=== PATIENT | male | born 1955 | race Caucasian/White ===

== ENCOUNTER 2017-12-24 18:24 | Emergency (ER) | payer OTHER ==
[~2017-12-24] VITALS: Ht 175.3 cm; Wt 102.5 kg
[2017-12-24 18:24] VITALS: BP 184/90; PULSE 67; RESP 16; TEMP 98.8; O2SAT 96
[~2017-12-24 18:24] MED LIST: EXEN10PE SQ; FENO50TA PO; FURO8SOL PO; GLUCTAB OR; LACT PO; LEVA500T33 PO; LORT5TAB PO; PRAV40TA PO
--- NOTE | 2017-12-24 19:20 | RADRPT ---
EXAM DATE/TIME: 12/24/2017 18:57 [facility] COMPARISON: CT BRAIN W/O CONTRAST, June 01, 2011, 16:24. INDICATIONS : Head pain due to fall off ladder. RADIATION DOSE: 44.30 CTDIvol (mGy) MEDICAL HISTORY : Hypertension. Diabetes mellitus type 2. SURGICAL HISTORY : None. ENCOUNTER: Initial ACUITY: 1 day PAIN SCALE: 10/10 LOCATION: Bilateral cranial TECHNIQUE: Multiple contiguous axial images were obtained of the head. Using automated exposure control and adj ustment of the mA and/or kV according to patient size, radiation dose was kept as low as reasonably a chievable to obtain optimal diagnostic quality images. DICOM format image data is available electro nically for review and comparison. FINDINGS: CEREBRUM: The ventricles are normal for age. No evidence of midline shift, mass lesion, hemorrhage or acute in farction. No extra-axial fluid collections are seen. POSTERIOR FOSSA: The cerebellum and brainstem are intact. The 4th ventricle is midline. The cerebellopontine angle i s unremarkable. EXTRACRANIAL: The visualized portion of the orbits is intact. SKULL: The calvaria is intact. No evidence of skull fracture. CONCLUSION: Normal examination for a patient of this age. No significant change from 2010. Klever Crouch MD on December 24, 2017 at 19:17 Board Certified Radiologist. This report was verified electronically.
--- NOTE | 2017-12-24 19:24 | RADRPT ---
EXAM DATE/TIME: 12/24/2017 18:57 [facility] COMPARISON: No previous studies available for comparison. INDICATIONS : Neck pain due to fall off ladder. RADIATION DOSE: 21.60 CTDIvol (mGy) MEDICAL HISTORY : Hypertension. Diabetes mellitus type 2. SURGICAL HISTORY : None. ENCOUNTER: Initial ACUITY: 1 day PAIN SCALE: 10/10 LOCATION: Bilateral neck region. TECHNIQUE: Volumetric scanning of the cervical spine was performed. Multiplanar reconstructions in the sagittal, coronal and oblique axial planes were performed. Using automated exposure control and adjustment o f the mA and/or kV according to patient size, radiation dose was kept as low as reasonably achievable to obtain optimal diagnostic quality images. DICOM format image data is available electronically f or review and comparison. FINDINGS: VERTEBRAE: Normal vertebral body height. There are primary degenerative changes throughout the cervical spine. T here is disc space narrowing at C5-6 and C6-7. No acute bony fractures are demonstrated. ALIGNMENT: No evidence of subluxation. C2-C3: The bony spinal canal is normal in size. No evidence of disc bulge or herniation. The neural forami na are bilaterally patent. C3-C4: The bony spinal canal is normal in size. No evidence of disc bulge or herniation. The neural forami na are bilaterally patent. C4-C5: The bony spinal canal is normal in size. No evidence of disc bulge or herniation. The neural forami na are bilaterally patent. C5-C6: There is a left paracentral disc osteophyte complex. Mild narrowing of the left neural foramina. The right neural foramina is patent. C6-C7: Central disc osteophyte complex. There is some narrowing of the neural foramina bilaterally. C7-T1: The bony spinal canal is normal in size. No evidence of disc bulge or herniation. The neural forami na are bilaterally patent. CONCLUSION: 1. No acute bony fracture. 2. Primary degenerative changes with disc degeneration and disc space narrowing especially at C5-6 an d C6-7. 3. Left paracentral disc osteophyte complex at C5-6 4. Central disc osteophyte complex at C6-7 Klever Crouch MD on December 24, 2017 at 19:18 Board Certified Radiologist. This report was verified electronically.
--- NOTE | 2017-12-24 19:58 | RADRPT ---
EXAM DATE/TIME: 12/24/2017 19:36 [facility] COMPARISON: No previous studies available for comparison. INDICATIONS : Chest pain. Patient fell off a ladder. MEDICAL HISTORY : Hypertension. Diabetes mellitus type 2. SURGICAL HISTORY : None. ENCOUNTER: Initial ACUITY: 1 day PAIN SCORE: 2/10 LOCATION: Bilateral chest FINDINGS: PA and lateral views of the chest demonstrate the lungs to be symmetrically aerated without evidence of mass, infiltrate or effusion. The cardiomediastinal contours are unremarkable. Osseous structure s are intact. CONCLUSION: No acute intrathoracic disease. Klever Crouch MD on December 24, 2017 at 19:55 Board Certified Radiologist. This report was verified electronically.
[2017-12-24] MEDS ORDERED: PRAV40TA PO (22:38)
[2017-12-24] MEDS ORDERED: FURO20TA PO (22:38)
[2017-12-24] MEDS ORDERED: METF-382 PO (22:38)
[2017-12-24] MEDS ORDERED: FENO50TA PO (22:38)
[2017-12-24] MEDS ORDERED: LACTCHW3 CHEW (22:38)
[2017-12-24] MEDS ORDERED: BYET10IN2 SQ (22:38)
[2017-12-24 22:39] VITALS: BP 166/72; PULSE 75; RESP 16; TEMP 98.8; O2SAT 96
[2017-12-24] MEDS ORDERED: ACETAMINOPHEN 325 MG TAB PO ONE (22:45)
[2017-12-24] MEDS ORDERED: CYCLOBENZAPRINE HCL 10 MG TAB PO ONE (22:45)
--- NOTE | 2017-12-24 22:55 | PD ---
HPI Chief Complaint: Fall Time Seen by Provider: 22:32 Travel History International Travel<30 days: No Contact w/Intl Traveler<30days: No Traveled to known affect area: No History of Present Illness HPI 62-year-old male here for evaluation of neck pain and head pain after falling off the ladder and striking his head on the ground. The patient reports that he was doing some tree work when a branch struck him, causing him to fall backwards from a height of about 5-6 feet and landing on the ground. He remembers striking the back of his head on the ground, however is unsure if he lost consciousness. He then proceeded to put his ladder backward it belongs, however he does not recall doing this. This incident occurred at around 5:[address] head and cervical spine were ordered in triage as well as [place] collar placed in triage, and the patient was brought back to [place] for evaluation at around 11:30 PM. Patient complains of posterior and left lateral neck discomfort as well as diffuse headache which she rates as 5 out of 10. He has also noted some tingling sensation in all of his distal fingers bilaterally, however he has had this for the last month. He denies upper or lower extremity injuries. No dyspnea. No abdominal pain. PFSH Past Medical History Cardiovascular Problems: Yes (lower extremity edema, on lasix ) High Cholesterol: Yes Diabetes: Yes Patient Takes Glucophage: Yes Diminished Hearing: No Hypertension: Yes Immunizations Current: Yes Sleep Apnea: Yes Triglycerides - High: Yes Tetanus Vaccination: < 5 Years Influenza Vaccination: Yes Past Surgical History Appendectomy: Yes Social History Alcohol Use: No Tobacco Use: No Substance Use: No Allergies-Medications (Allergen,Severity, Reaction): Coded Allergies: No Known Allergies (Verified , 06/15/11) Reported Meds & Prescriptions Reported Meds & Active Scripts Active Reported Pravachol (Pravastatin) 40 Mg Tab 40 Mg PO DAILY Metformin ER (Metformin HCl) 1,000 Mg Meek 1,000 Mg PO DAILY With evening meal [place] Inj (Exenatide) 10 Mcg/0.04 Ml Pfpen 10 Mcg SQ BID Use within 60 minutes before the two main meals of the day. Furosemide 20 Mg Tab 20 Mg PO DAILY Lactinex (Lactobacillus Acidophilus) 1 Chew 1 Tab CHEW DAILY Tricor (Fenofibrate) 145 Mg Tab 145 Mg PO DAILY Takw with food. Review of Systems Except as stated in HPI: all other systems reviewed are Neg Physical Exam Narrative GENERAL: Well-developed, well-nourished, awake, alert, GCS 15, no apparent distress. SKIN: Focused skin assessment warm/dry. Lacerations, abrasions, or ecchymosis. HEAD: Atraumatic. Normocephalic. EYES: Pupils equal, round, 3 mm, reactive to light. EOMI. No scleral icterus. No injection or drainage. ENT: No nasal bleeding or discharge. Mucous membranes pink and moist. NECK: Trachea midline. No JVD. [place] cervical collar in place. Mild midline C-spine and left lateral neck tenderness without step-off or masses. CARDIOVASCULAR: Regular rate and rhythm. RESPIRATORY: No accessory muscle use. Clear to auscultation. Breath sounds equal bilaterally. GASTROINTESTINAL: Abdomen soft, non-tender, nondistended. MUSCULOSKELETAL: No obvious deformities. No clubbing. No cyanosis. No edema. No midline thoracic spine or lumbar spine step-off or tenderness. NEUROLOGICAL: Awake and alert. No obvious cranial nerve deficits. Motor grossly within normal limits. Normal speech. PSYCHIATRIC: Appropriate mood and affect; insight and judgment normal. Data Data Last Documented VS Vital Signs Date Time Temp Pulse Resp B/P (MAP) Pulse Ox O2 Delivery O2 Flow Rate FiO2 12/24/17 22:39 98.8 75 16 166/72 (103) 96 Room Air Orders Orders Ct Brain W/O Iv Contrast(Rout) (12/24/17 ) Ct Cerv Spine W/O Contrast (12/24/17 ) Chest, Pa & Lat (12/24/17 ) Acetaminophen (Tylenol) (12/24/17 22:45) Cyclobenzaprine (Flexeril) (12/24/17 22:45) Ed Discharge Order (12/24/17 22:55) [facility] Medical Decision Making Medical Screen Exam Complete: Yes Emergency Medical Condition: Yes Differential Diagnosis Closed head injury, intracranial trauma, cervical spine injury Narrative Course Vital signs reviewed. CT head: Normal exam for patient of this age. No significant change from 2010. CT cervical spine: CONCLUSION: 1. No acute bony fracture. 2. Primary degenerative changes with disc degeneration and disc space narrowing especially at C5-6 and C6-7. 3. Left paracentral disc osteophyte complex at C5-6 4. Central disc osteophyte complex at C6-7 Chest x-ray: CONCLUSION: No acute intrathoracic disease. The patient and the patient's family were made aware of all findings. There are no focal deficits on exam. Normal muscle strength in all 4 extremities. Patient likely experienced a concussion as well as cervical strain. He will be provided a copy of his CT head and neck reports. I will give him a prescription for Flexeril and he was advised to take Tylenol and ibuprofen for pain. He is stable for discharge home with outpatient follow-up with his primary care physician this week. He was advised on when to return to the emergency department. He verbalizes understanding and agreement with plan. Diagnosis Primary Impression: Closed head injury Qualified Codes: S09.90XA - Unspecified injury of head, initial encounter Additional Impressions: Cervical strain Qualified Codes: S16.1XXA - Strain of muscle, fascia and tendon at neck level , initial encounter Fall from ladder Qualified Codes: W11.XXXA - Fall on and from ladder, initial encounter Referrals: Primary Care Physician 3 days Additional Instructions: Follow-up with your primary care physician this week. Take Tylenol/ibuprofen for pain. Return to the emergency room if worsening symptoms or any other concerns. Scripts Cyclobenzaprine (Flexeril) 10 Mg Tab 10 MG PO TID for Muscle Spasm, #15 TAB 0 Refills Prov: Lazaro Jennings MD 12/24/17 Disposition: 01 DISCHARGE HOME Condition: Stable Lazaro Jennings MD Dec 24, 2017 22:55
[2017-12-24] MEDS ORDERED: CYCL10TA PO (22:56)
== END 2017-12-24 23:18 | disposition home or self-care (01) ==
LOC: NEPD 18:24
DX: S09.90XA Unspecified injury of head, initial encounter (principal); S16.1XXA Strain of muscle, fascia and tendon at neck level, initial encounter; W20.8XXA Other cause of strike by thrown, projected or falling object, initial encounter; W11.XXXA Fall on and from ladder, initial encounter; Y93.H9 Activity, other involving exterior property and land maintenance, building and construction
CPT/HCPCS: 70450; 71046; 72125; 99284

== ENCOUNTER 2018-01-19 15:26 | Inpatient (IN) | payer OTHER ==
[~2018-01-19] VITALS: Ht 175.3 cm; Wt 106.8 kg
[~2018-01-19 15:26] MED LIST changes: +BYET10IN2 SQ; +CYCL10TA PO; -EXEN10PE SQ; +FURO20TA PO; -FURO8SOL PO; -GLUCTAB OR; -LACT PO; +LACTCHW3 CHEW; -LEVA500T33 PO; -LORT5TAB PO; +METF-382 PO
[2018-01-19 15:52] VITALS: BP 137/70; PULSE 106; RESP 24; TEMP 99.2; O2SAT 96
[2018-01-19 18:31] LABS: LACTIC ACID SEPSIS PROTOCOL 2.1 mmol/L (0.4-2.0)
[2018-01-19 18:32] LABS: AUTOMATED NEUTROPHIL # 19.2 TH/MM3 (1.8-7.7); BASOPHIL # 0.1 TH/MM3 (0-0.2); BASOPHIL % 0.5 % (0.0-2.0); EOSINOPHIL % 0.2 % (0.0-4.0); HEMATOCRIT 52.3 % (39.0-51.0); HEMOGLOBIN 17.3 GM/DL (13.0-17.0); LYMPH % 6.5 % (9.0-44.0); LYMPHOCYTE # 1.5 TH/MM3 (1.0-4.8); MEAN CORPUSCULAR HEMOGLOBIN 28.4 PG (27.0-34.0); MEAN PLATELET VOLUME 9.2 FL (7.0-11.0); MONO % 6.8 % (0.0-8.0); MONOCYTE # 1.5 TH/MM3 (0-0.9); PLATELET COUNT 353 TH/MM3 (150-450); RED BLOOD COUNT 6.08 MIL/MM3 (4.50-5.90); RED CELL DISTRIBUTION WIDTH 14.2 % (11.6-17.2); WHITE BLOOD COUNT 22.3 TH/MM3 (4.0-11.0)
[2018-01-19 18:42] LABS: PROTHROMBIN TIME - PATIENT 10.4 SEC (9.8-11.6)
[2018-01-19 18:56] LABS: ALBUMIN 3.2 GM/DL (3.4-5.0); AST (GOT) 17 U/L (15-37); BICARBONATE 18.7 MEQ/L (21.0-32.0); BLOOD UREA NITROGEN 33 MG/DL (7-18); CALCIUM 10.5 MG/DL (8.5-10.1); CHLORIDE 92 MEQ/L (98-107); CREATININE 1.71 MG/DL (0.60-1.30); GLOMERULAR FILTRATION RATE 41 ML/MIN (>89); GLUCOSE,RANDOM 280 MG/DL (74-106); SODIUM (NA) 130 MEQ/L (136-145)
[2018-01-19 18:57] LABS: ALT (GPT) 17 U/L (12-78)
[2018-01-19 19:00] LABS: ALKALINE PHOSPHATASE 101 U/L (45-117); TOTAL BILIRUBIN ADULT 0.5 MG/DL (0.2-1.0); TOTAL PROTEIN 8.4 GM/DL (6.4-8.2)
[2018-01-19 19:07] LABS: BANDS 5 % (0-6); LYMPHOCYTES 13 % (9-44); METAMYELOCYTES 3 % (0-1); MONOCYTES 10 % (0-8); NEUTROPHIL # MANUAL DIFF 17.2 TH/MM3 (1.8-7.7); POLYS (SEG NEUTROPHILS) 69 % (16-70)
[2018-01-19] MEDS ORDERED: LISI-519 PO (19:17)
[2018-01-19] MEDS ORDERED: ALBI1INJ2 SQ (19:17)
[2018-01-19] MEDS ORDERED: BACT800T5 PO (19:17)
[2018-01-19] MEDS ORDERED: OXYC1CAP PO (19:17)
[2018-01-19] MEDS ORDERED: SODIUM CHLOR 0.9% 1000 ML INJ 1,000 ML IV SCH (19:18)
[2018-01-19] MEDS ORDERED: PIPERACIL-TAZO 3.375 GM PREMIX 50 ML IV ONE (19:30)
[2018-01-19] MEDS ORDERED: VANCOMYCIN INJ 1,750 MG in SODIUM CHLORID 0.9% 500 ML INJ 500 ML IV ONE (19:30)
[2018-01-19] MEDS ORDERED: MORPHINE SULFATE 8 MG/ML INJ IV PUSH ONE (19:30)
[2018-01-19] MEDS ORDERED: HYDROmorphone HCL PF 2 MG/ML VIAL IV PUSH ONE (19:45)
[2018-01-19] MEDS ORDERED: SODIUM CHLOR 0.9% 1000 ML INJ 1,000 ML IV ONE (19:45)
[2018-01-19 20:28] VITALS: BP 98/51; PULSE 86; RESP 21; TEMP 99.8; O2SAT 95
--- NOTE | 2018-01-19 20:36 | RADRPT ---
EXAM DATE/TIME: 01/19/2018 19:55 [facility] COMPARISON: CT ABDOMEN & PELVIS W CONTRAST, June 15, 2011, 19:22. INDICATIONS : Perirectal pain following I & D of perirectal abscess. Patient complains of difficulty voiding and p ainful bowel movements. ORAL CONTRAST: No oral contrast ingested. RADIATION DOSE: 17.92 CTDIvol (mGy) MEDICAL HISTORY : Hypertension. Diabetes mellitus type 2. SURGICAL HISTORY : Appendectomy. ENCOUNTER: Initial ACUITY: 1 week PAIN SCALE: 10/10 LOCATION: abdomen/pelvis TECHNIQUE: Volumetric scanning of the abdomen and pelvis was performed. Using automated exposure control and ad justment of the mA and/or kV according to patient size, radiation dose was kept as low as reasonably achievable to obtain optimal diagnostic quality images. DICOM format image data is available electro nically for review and comparison. FINDINGS: LOWER LUNGS: The visualized lower lungs are clear. LIVER: Homogeneous density without lesion. There is no dilation of the biliary tree. No calcified gallston es. SPLEEN: Normal size without lesion. PANCREAS: Within normal limits. KIDNEYS: No calcified stones seen in the collecting system or either ureter. There is mild asymmetric promine nce of the collecting system of both kidneys and mild dilation of both ureters. ADRENAL GLANDS: Within normal limits. VASCULAR: There is no aortic aneurysm. BOWEL/MESENTERY: No dilated loops of small or large bowel. A few small sigmoid diverticula, stable from prior, withou t radiographic evidence of diverticulitis. There is induration of the subcutaneous fat about the rig ht gluteal fold, but no focal fluid collections seen. ABDOMINAL WALL: Within normal limits. RETROPERITONEUM: There is no lymphadenopathy. BLADDER: Mildly distended. No calcifications within the lumen. No wall thickening or mass. REPRODUCTIVE: Induration of the posterior scrotum is similar to prior CT in 2010. INGUINAL: There is no lymphadenopathy or hernia. MUSCULOSKELETAL: Within normal limits for patient age. CONCLUSION: 1. Induration of the subcutaneous soft tissues in the right perianal region without focal fluid colle ction. 2. Both collecting system and ureters are mildly dilated, but no calcified stones seen on either side . 3. Distended urinary bladder, similar to prior CT in 2000. Inder Campuzano MD on January 19, 2018 at 20:29 Board Certified Radiologist. This report was verified electronically.
--- NOTE | 2018-01-19 22:13 | RADRPT ---
EXAM DATE/TIME: 01/19/2018 20:47 [facility] COMPARISON: US TESTICLE W/DOPPLER, June 15, 2011, 18:13. INDICATIONS : Testicular pain. MEDICAL HISTORY : Hypercholesterolemia. Hypertension. Lower extremity edema. Hyperlipidemia. Sleep apnea. Diabetes. SURGICAL HISTORY : Appendectomy. Perirectal abscess I&D. ENCOUNTER: Subsequent ACUITY: 1 week PAIN SCORE: 3/10 LOCATION: Bilateral testicles. MEASUREMENTS: RIGHT TESTICLE: 4.4 x 3.4 x 2.1cm LEFT TESTICLE: 4.2 x 3.2 x 2.0cm FINDINGS: RIGHT TESTICLE: Homogeneous echotexture without intra or extratesticular mass. Blood flow is symmetric and within no rmal limits. No hydrocele or varicocele. Epididymis is within normal limits. LEFT TESTICLE: Homogeneous echotexture without intra or extratesticular mass. Blood flow is symmetric and within no rmal limits. No hydrocele or varicocele. Epididymis is within normal limits. SCROTUM: Focal irregular shaped area of prominent thickening of the posterior scrotal tissue measuring 5.1 x 5 .5 x 5.3 cm. There is inhomogeneous areas of echo texture. No internal flow seen on color Doppler. CONCLUSION: 1. Bilateral testicles have a normal appearance with intact flow by color Doppler. 2. Irregular shaped heterogeneous echotexture abnormality in the posterior scrotum measuring excess o f 5 cm. Inder Campuzano MD on January 19, 2018 at 22:10 Board Certified Radiologist. This report was verified electronically.
--- NOTE | 2018-01-19 22:47 | PD ---
HPI Chief Complaint: Skin Problem Time Seen by Provider: 19:15 Travel History International Travel<30 days: No Contact w/Intl Traveler<30days: No Traveled to known affect area: No History of Present Illness HPI the patient's 49 years old and arrives to the ER with complaint of pain in the perineal distribution and scrotum. He underwent incision and drainage of perirectal abscess by Dr. Youssef several days prior and has been back to the office including today and from there was sent here. Pain is constant. It's worse with palpation. Subjective fever is reported. Keflex was not helpful at home. PFSH Past Medical History Cardiovascular Problems: Yes (lower extremity edema, on lasix ) High Cholesterol: Yes Diabetes: Yes Patient Takes Glucophage: No Diminished Hearing: No Hypertension: Yes Immunizations Current: Yes Sleep Apnea: Yes Triglycerides - High: Yes Past Surgical History Appendectomy: Yes Other Surgery: Yes (01/15/17 PERIRECTAL ABCESS I&D) Social History Alcohol Use: No Tobacco Use: No Substance Use: No Allergies-Medications (Allergen,Severity, Reaction): Coded Allergies: No Known Allergies (Verified Allergy, Unknown, 01/20/18) morphine (Verified Adverse Reaction, Unknown, Hallucinations, 01/20/18) Reported Meds & Prescriptions Reported Meds & Active Scripts Active Reported Oxycodone (Oxycodone HCl) 5 Mg Cap 5 Mg PO Q6H PRN Tanzeum 4-Pack Inj (Albiglutide) 50 Mg Pfpen 50 Mg SQ Q7D Lisinopril 5 Mg Tab 5 Mg PO DAILY Pravachol (Pravastatin) 40 Mg Tab 40 Mg PO DAILY Tricor (Fenofibrate) 145 Mg Tab 145 Mg PO DAILY Takw with food. Review of Systems Except as stated in HPI: all other systems reviewed are Neg General / Constitutional: Positive: Fever Physical Exam Narrative GENERAL: 62-year-old male pleasant well-nourished well-developed mild to moderate distress secondary to pain Vital Signs Date Time Temp Pulse Resp B/P (MAP) Pulse Ox O2 Delivery O2 Flow Rate FiO2 01/19/18 20:28 99.8 86 21 98/51 (67) 95 Nasal Cannula 2.00 01/19/18 15:52 99.2 106 24 137/70 (92) 96 SKIN: Warm and dry. Examination of the perirectal area demonstrates incised abscesses in the left gluteal distribution. The perineal ridge and scrotum is indurated and erythematous and tender. No palpable crepitus. HEAD: Atraumatic. Normocephalic. EYES: Pupils equal and round. No scleral icterus. No injection or drainage. ENT: No nasal bleeding or discharge. Mucous membranes pink and moist. NECK: Trachea midline. No JVD. CARDIOVASCULAR: Regular rhythm. Tachycardia. RESPIRATORY: No accessory muscle use. Clear to auscultation. Breath sounds equal bilaterally. GASTROINTESTINAL: Abdomen soft, non-tender, nondistended. Hepatic and splenic margins not palpable. MUSCULOSKELETAL: Extremities without clubbing, cyanosis, or edema. No obvious deformities. NEUROLOGICAL: Awake and alert. No obvious cranial nerve deficits. Motor grossly within normal limits. Five out of 5 muscle strength in the arms and legs. Normal speech. PSYCHIATRIC: Appropriate mood and affect; insight and judgment normal. Data Data Last Documented VS Vital Signs Date Time Temp Pulse Resp B/P (MAP) Pulse Ox O2 Delivery O2 Flow Rate FiO2 01/19/18 20:28 99.8 86 21 98/51 (67) 95 Nasal Cannula 2.00 VS reviewed Orders Orders Complete Blood Count With Diff (01/19/18 15:55) Comprehensive Metabolic Panel (01/19/18 15:55) Prothrombin Time / Inr (Pt) (01/19/18 15:55) Act Partial Throm Time (Ptt) (01/19/18 15:55) Lactic Acid Sepsis Protocol (01/19/18 15:55) Urinalysis - C+S If Indicated (01/19/18 15:55) Blood Culture (01/19/18 15:55) Iv Access Insert/Monitor (01/19/18 19:18) Ecg Monitoring (01/19/18 19:18) Oximetry (01/19/18 19:18) Sodium Chlor 0.9% 1000 Ml Inj (Ns 1000 M (01/19/18 19:18) Sodium Chloride 0.9% Flush (Ns Flush) (01/19/18 19:30) Morphine Inj (Morphine Inj) (01/19/18 19:30) Ct Abd/Pel W/O Iv Contrast (01/19/18 ) Us Testicles W Doppler (01/19/18 ) Vancomycin Inj (Vancomycin Inj) (01/19/18 19:30) Piperacil-Tazo 3.375 Gm Premix (Zosyn 3. (01/19/18 19:30) Sodium Chlor 0.9% 1000 Ml Inj (Ns 1000 M (01/19/18 19:45) Hydromorphone Pf Inj (Dilaudid Pf Inj) (01/19/18 19:45) Electronics Engineering Manager / Telemetry JOSE.[email or web address] (01/19/18 22:44) Vital Signs (Adult) Q4H (01/19/18 22:44) Activity Bed Rest (01/19/18 22:44) Admit Order (Ed Use Only) (01/19/18 22:46) Labs Laboratory Tests Test 01/19/18 17:40 01/19/18 22:12 White Blood Count 22.3 TH/MM3 Red Blood Count 6.08 MIL/MM3 Hemoglobin 17.3 GM/DL Hematocrit 52.3 % Mean Corpuscular Volume 86.0 FL Mean Corpuscular Hemoglobin 28.4 PG Mean Corpuscular Hemoglobin Concent 33.0 % Red Cell Distribution Width 14.2 % Platelet Count 353 TH/MM3 Mean Platelet Volume 9.2 FL Neutrophils (%) (Auto) 86.0 % Lymphocytes (%) (Auto) 6.5 % Monocytes (%) (Auto) 6.8 % Eosinophils (%) (Auto) 0.2 % Basophils (%) (Auto) 0.5 % Neutrophils # (Auto) 19.2 TH/MM3 Lymphocytes # (Auto) 1.5 TH/MM3 Monocytes # (Auto) 1.5 TH/MM3 Eosinophils # (Auto) 0.0 TH/MM3 Basophils # (Auto) 0.1 TH/MM3 CBC Comment AUTO DIFF Differential Total Cells Counted 100 Neutrophils % (Manual) 69 % Band Neutrophils % 5 % Lymphocytes % 13 % Monocytes % 10 % Neutrophils # (Manual) 17.2 TH/MM3 Metamyelocytes 3 % Differential Comment FINAL DIFF MANUAL Platelet Estimate NORMAL Platelet Morphology Comment ENLARGED Prothrombin Time 10.4 SEC Prothromb Time International Ratio 1.0 RATIO Activated Partial Thromboplast Time 25.4 SEC Blood Urea Nitrogen 33 MG/DL Creatinine 1.71 MG/DL Random Glucose 280 MG/DL Total Protein 8.4 GM/DL Albumin 3.2 GM/DL Calcium Level 10.5 MG/DL Alkaline Phosphatase 101 U/L Aspartate Amino Transf (AST/SGOT) 17 U/L Alanine Aminotransferase (ALT/SGPT) 17 U/L Total Bilirubin 0.5 MG/DL Sodium Level 130 MEQ/L Potassium Level 5.2 MEQ/L Chloride Level 92 MEQ/L Carbon Dioxide Level 18.7 MEQ/L Anion Gap 19 MEQ/L Estimat Glomerular Filtration Rate 41 ML/MIN Lactic Acid Level 2.1 mmol/L 1.2 mmol/L MDM Medical Decision Making Medical Screen Exam Complete: Yes Emergency Medical Condition: Yes Medical Record Reviewed: Yes Differential Diagnosis scrotal abscess, sepsis, perirectal abscess, Federico's gangrene Narrative Course CBC & BMP Diagram 01/19/18 17:40 Total Protein 8.4 H, Albumin 3.2 L, Calcium Level 10.5 H, Alkaline Phosphatase 101, Aspartate Amino Transf (AST/SGOT) 17, Alanine Aminotransferase (ALT/SGPT) 17, Total Bilirubin 0.5 Last Impressions Scrotum Ultrasound 01/19/18 0000 Signed Impressions: Service Date/Time: Friday, January 19, 2018 20:47 - CONCLUSION: 1. Bilateral testicles have a normal appearance with intact flow by color Doppler. 2. Irregular shaped heterogeneous echotexture abnormality in the posterior scrotum measuring excess of 5 cm. Inder Campuzano MD Abdomen/Pelvis CT 01/19/18 0000 Signed Impressions: Service Date/Time: Friday, January 19, 2018 19:55 - CONCLUSION: 1. Induration of the subcutaneous soft tissues in the right perianal region without focal fluid collection. 2. Both collecting system and ureters are mildly dilated, but no calcified stones seen on either side. 3. Distended urinary bladder, similar to prior CT in 2000. Inder Campuzano MD [facility] started. IV fluids initiated. No evidence of gas in the scrotum, perineum or pelvis/buttocks. Patient will require ongoing IV antibiotics. The case was discussed with Dr. Youssef. The case was discussed with Dr. White. there is a mild bump and lactic acid which is most likely to be in keeping with the patient's oral anti-hyperglycemic. Anion gap is considered most likely secondary to same. Critical Care Narrative Aggregate critical care time was 35 minutes. Time to perform other separately billable procedures was not included in the critical care time. My time did not include minutes spent treating any other patients simultaneously or on activities that did not directly contribute to the patient's treatment. The services I provided to this patient were to treat and/or prevent clinically significant deterioration that could result in: Septic shock, cardiopulmonary arrest I provided critical care services requiring my management, as noted below: Chart data review, documentation time, medication orders and management, vital sign assessments/reviewing monitor data, ordering and reviewing lab tests, ordering and interpreting/reviewing x-rays and diagnostic studies, care of the patient and discussion of the patient with the admitting physicians. Diagnosis Primary Impression: Scrotal abscess Additional Impressions: Perirectal abscess DM2 (diabetes mellitus, type 2) Admitting Information Admitting Physician Requests: Admit Carlos Diaz MD Jan 19, 2018 22:47
[2018-01-20] VITALS (8 sets, daily range): BP systolic 101–132; BP diastolic 55–60; PULSE 77–97; RESP 14–20; TEMP 97–99.1; O2SAT 92–98
[2018-01-20] MEDS ORDERED: ONDANSETRON HCL 4 MG/2 ML VIAL IV PUSH PRN
[2018-01-20] MEDS ORDERED: Vancomycin Consult Pharmacy 1 EA OTHER SCH
[2018-01-20] MEDS ORDERED: MORPHINE SULFATE 8 MG/ML INJ IV PUSH PRN
[2018-01-20] MEDS ORDERED: VANCOMYCIN INJ 1,000 MG in SODIUM CHLOR 0.9% 250 ML INJ 250 ML IV ONE ×2
--- NOTE | 2018-01-20 00:16 | HHI.HP ---
HPI Service [facility] Hospitalists Primary Care Physician Rick Funk M.D. Admission Diagnosis Scrotal Abscess; Perirectal Cellulitis; Sepsis Chief Complaint: pain in scrotum, buttock with wound, directed to ER by his gen surgeon Travel History International Travel<30 Days: No Contact w/Intl Traveler <30 Da: No Traveled to Known Affected Are: No Sepsis Criteria SIRS Criteria (2 or more): Heart rate over 90, WBC > 88491, < 4000 or > 10% bands Sepsis Criteria (SIRS+source): Infect source susp/known Criteria Outcome: Meets sepsis criteria History of Present Illness 62 y.o. WM with DM presents to ER under direction of Dr Grubbs re: perirectal abscess and pain/swelling in scrotum. First treated with Keflex abx 01/13/18 re: abscess, then had I&D performed by Dr Grubbs on 01/15/18 and was reportedly placed on Bactrim for last few days. Cltx of abscess revealed group B Strep. He had low grade fevers today and has noted more swelling in scrotum with difficulty having BMs over last 2 days. No vomiting, but +nausea. Was seen in gen surgery office today and directed to ER re: possible progression of abscess with possible scrotal abscess as well. CT abd/pelvis noted for induration in perineal area, but not obvious abscess. U/S scrotum reveal irreg structure appx 5 cm most c/w abscess per ER provider. Testicles appear wnl bilat. Pt placed on IV abx and pain med. Review of Systems Constitutional: COMPLAINS OF: Fever, Chills Endocrine: DENIES: Heat/cold intolerance, Polydipsia, Polyuria, Polyphagia Eyes: DENIES: Blurred vision, Diplopia, Eye inflammation, Eye pain, Vision loss , Photosensitivity, Double Vision Ears, nose, mouth, throat: DENIES: Tinnitus, Hearing loss, Vertigo, Nasal discharge, Oral lesions, Throat pain, Hoarseness, Ear Pain, Running Nose, Epistaxis, Sinus Pain, Toothache, Odynophagia Respiratory: DENIES: Apneas, Cough, Snoring, Wheezing, Hemoptysis, Sputum production, Shortness of breath Cardiovascular: DENIES: Chest pain, Palpitations, Syncope, Dyspnea on Exertion , PND, Lower Extremity Edema, Orthopnea, Claudication Gastrointestinal: COMPLAINS OF: Constipation, DENIES: Abdominal pain, Black stools, Bloody stools, BRB per rectum, Diarrhea, GERD, Nausea, Reflux, Vomiting , Difficulty Swallowing, Anorexia, See HPI Genitourinary: COMPLAINS OF: Testicular Pain, Testicular Swelling Musculoskeletal: COMPLAINS OF: Joint pain Integumentary: DENIES: Abnormal pigmentation, Nail changes, Pruritus, Rash Hematologic/lymphatic: DENIES: Bruising, Lymphadenopathy Immunologic/allergic: DENIES: Eczema, Urticaria Neurologic: COMPLAINS OF: Abnormal gait, DENIES: Headache, Localized weakness, Paresthesias, Seizures, Speech Problems, Tremor, Poor Balance Psychiatric: COMPLAINS OF: Anxiety Other open wound on buttock, swelling in scrotum Past Family Social History Past Medical History DM 2 with nephropathy GERD Obesity HTN Past Surgical History Appendectomy Neck Abscess I&D Reported Medications Oxycodone (Oxycodone HCl) 5 Mg Cap 5 Mg PO Q6H PRN Bactrim DS (Sulfamethoxazole-Trimethoprim) 800-160 Mg Tab 1 Tab PO BID Tanzeum 4-Pack Inj (Albiglutide) 50 Mg Pfpen 50 Mg SQ Q7D Lisinopril 5 Mg Tab 5 Mg PO DAILY Pravachol (Pravastatin) 40 Mg Tab 40 Mg PO DAILY Tricor (Fenofibrate) 145 Mg Tab 145 Mg PO DAILY Takw with food. Allergies: Coded Allergies: No Known Allergies (Verified , 06/15/11) Family History Father- Afib Brother- Afib, DM Mother- stroke Social History No tobacco, No EtOH, No illicits born and raised locally Salesman for [employer] Physical Exam Vital Signs Vital Signs Date Time Temp Pulse Resp B/P (MAP) Pulse Ox O2 Delivery O2 Flow Rate FiO2 01/19/18 23:52 01/19/18 20:28 99.8 86 21 98/51 (67) 95 Nasal Cannula 2.00 01/19/18 15:52 99.2 106 24 137/70 (92) 96 Physical Exam GENERAL: This is a well-nourished, well-developed patient, in no apparent distress. a/o SKIN: right buttock with open wound with mild erythema/induration in gluteal cleft, perineal area and scrotum with edema, induration and ttp HEAD: Atraumatic. Normocephalic. No temporal or scalp tenderness. EYES: Pupils equal round and reactive. Extraocular motions intact. No scleral icterus. No injection or drainage. ENT: Nose without bleeding, purulent drainage or septal hematoma. Airway patent. NECK: Trachea midline. No JVD or lymphadenopathy. Supple, nontender, no meningeal signs. CARDIOVASCULAR: Regular rate and rhythm without murmurs, gallops, or rubs. RESPIRATORY: Clear to auscultation. Breath sounds equal bilaterally. No wheezes , rales, or rhonchi. GASTROINTESTINAL: Abdomen soft, non-tender, nondistended. No hepato-splenomegaly , or palpable masses. No guarding. MUSCULOSKELETAL: Extremities without clubbing, cyanosis, or edema. No joint tenderness, effusion, or edema noted. No calf tenderness. NEUROLOGICAL: Awake and alert. Cranial nerves II through XII intact. Motor and sensory grossly within normal limits. Five out of 5 muscle strength in all muscle groups. Normal speech. : testicles descended bilat with minimal ttp, no obvious testicular mass, but scrotum is full with significant induration dorsally Laboratory Laboratory Tests Test 01/19/18 17:40 01/19/18 22:12 White Blood Count 22.3 Red Blood Count 6.08 Hemoglobin 17.3 Hematocrit 52.3 Mean Corpuscular Volume 86.0 Mean Corpuscular Hemoglobin 28.4 Mean Corpuscular Hemoglobin Concent 33.0 Red Cell Distribution Width 14.2 Platelet Count 353 Mean Platelet Volume 9.2 Neutrophils (%) (Auto) 86.0 Lymphocytes (%) (Auto) 6.5 Monocytes (%) (Auto) 6.8 Eosinophils (%) (Auto) 0.2 Basophils (%) (Auto) 0.5 Neutrophils # (Auto) 19.2 Lymphocytes # (Auto) 1.5 Monocytes # (Auto) 1.5 Eosinophils # (Auto) 0.0 Basophils # (Auto) 0.1 CBC Comment AUTO DIFF Differential Total Cells Counted 100 Neutrophils % (Manual) 69 Band Neutrophils % 5 Lymphocytes % 13 Monocytes % 10 Neutrophils # (Manual) 17.2 Metamyelocytes 3 Differential Comment FINAL DIFF MANUAL Platelet Estimate NORMAL Platelet Morphology Comment ENLARGED Prothrombin Time 10.4 Prothromb Time International Ratio 1.0 Activated Partial Thromboplast Time 25.4 Blood Urea Nitrogen 33 Creatinine 1.71 Random Glucose 280 Total Protein 8.4 Albumin 3.2 Calcium Level 10.5 Alkaline Phosphatase 101 Aspartate Amino Transf (AST/SGOT) 17 Alanine Aminotransferase (ALT/SGPT) 17 Total Bilirubin 0.5 Sodium Level 130 Potassium Level 5.2 Chloride Level 92 Carbon Dioxide Level 18.7 Anion Gap 19 Estimat Glomerular Filtration Rate 41 Lactic Acid Level 2.1 1.2 Date/Time Source Procedure Growth Status 01/19/18 17:40 Blood Peripheral Aerobic Blood Culture Pending Received 01/19/18 17:40 Blood Peripheral Anaerobic Blood Culture Pending Received Result Diagram: 01/19/18 1740 01/19/18 1740 Imaging Last 72 hours Impressions Scrotum Ultrasound 01/19/18 0000 Signed Impressions: Service Date/Time: Friday, January 19, 2018 20:47 - CONCLUSION: 1. Bilateral testicles have a normal appearance with intact flow by color Doppler. 2. Irregular shaped heterogeneous echotexture abnormality in the posterior scrotum measuring excess of 5 cm. Inder Campuzano MD Abdomen/Pelvis CT 01/19/18 0000 Signed Impressions: Service Date/Time: Friday, January 19, 2018 19:55 - CONCLUSION: 1. Induration of the subcutaneous soft tissues in the right perianal region without focal fluid collection. 2. Both collecting system and ureters are mildly dilated, but no calcified stones seen on either side. 3. Distended urinary bladder, similar to prior CT in 2000. Inder Campuzano MD Caprini VTE Risk Assessment Caprini VTE Risk Assessment: Mod/High Risk (score >= 2) Caprini Risk Assessment Model Point Value = 1 Point Value = 2 Point Value = 3 Point Value = 5 Age 41-60 Minor surgery BMI > 25 kg/m2 Swollen legs Varicose veins or History of unexplained or recurrent spontaneous Oral contraceptives or hormone replacement Sepsis (< 1 month) Serious lung disease, including pneumonia (< 1 month) Abnormal pulmonary function Acute myocardial infarction Congestive heart failure (< 1 month) History of inflammatory bowel disease Medical patient at bed rest Age 61-74 Arthroscopic surgery Major open surgery (> 45 min) Laparoscopic surgery (> 45 min) Malignancy Confined to bed (> 72 hours) Immobilizing plaster cast Central venous access Age >= 75 History of VTE Family history of VTE Factor V Leiden Prothrombin 26416C Lupus anticoagulant Anticardiolipin antibodies Elevated serum homocysteine Heparin-induced thrombocytopenia Other congenital or acquired thrombophilia Stroke (< 1 month) Elective arthroplasty Hip, pelvis, or leg fracture Acute spinal cord injury (< 1 month) Prophylaxis Regimen Total Risk Factor Score Risk Level Prophylaxis Regimen 0-1 Low Early ambulation 2 Moderate Order ONE of the following: *Sequential Compression Device (SCD) *Heparin 5000 units SQ BID 3-4 Higher Order ONE of the following medications: *Heparin 5000 units SQ TID *Enoxaparin/Lovenox 40 mg SQ daily (WT < 150 kg, CrCl > 30 mL/min) *Enoxaparin/Lovenox 30 mg SQ daily (WT < 150 kg, CrCl > 10-29 mL/min) *Enoxaparin/Lovenox 30 mg SQ BID (WT < 150 kg, CrCl > 30 mL/min) AND/OR *Sequential Compression Device (SCD) 5 or more Highest Order ONE of the following medications: *Heparin 5000 units SQ TID (Preferred with Epidurals) *Enoxaparin/Lovenox 40 mg SQ daily (WT < 150 kg, CrCl > 30 mL/min) *Enoxaparin/Lovenox 30 mg SQ daily (WT < 150 kg, CrCl > 10-29 mL/min) *Enoxaparin/Lovenox 30 mg SQ BID (WT < 150 kg, CrCl > 30 mL/min) AND *Sequential Compression Device (SCD) Assessment and Plan Problem List: (1) Scrotal abscess ICD Codes: N49.2 - Inflammatory disorders of scrotum Status: Acute Plan: Pt meets sepsis criteria. Vitals stabilized. Will hold BP meds. Provide IVF, pain meds, IV abx. consult urology. (2) Perirectal abscess ICD Codes: K61.1 - Rectal abscess Status: Acute Plan: As above. consult gen surgery who is familiar with pt. (3) DM2 (diabetes mellitus, type 2) ICD Codes: E11.9 - Type 2 diabetes mellitus without complications Status: Chronic Plan: Hydrate. Accucheck with SSI. Hold outpt meds (4) GERD (gastroesophageal reflux disease) ICD Codes: K21.9 - Gastro-esophageal reflux disease without esophagitis Status: Chronic Plan: zantac Code Status full Discussed Condition With Pt, his and ER provider. Physician Certification 2 Midnight Certification Type: Admission for Inpatient Services Order for Inpatient Services The services are ordered in accordance with Medicare regulations or non- Medicare payer requirements, as applicable. In the case of services not specified as inpatient-only, they are appropriately provided as inpatient services in accordance with the 2-midnight benchmark. Estimated LOS (days): 3 days is the estimated time the patient will need to remain in the hospital, assuming treatment plan goals are met and no additional complications. Post-Hospital Plan: Home Problem Qualifiers (1) DM2 (diabetes mellitus, type 2): Tomas White MD PhD Jan 20, 2018 00:16
[2018-01-20] MEDS: SODIUM CHLOR 0.9% 1000 ML INJ 1,000 ML IV SCH ×2 (00:25→07:57)
[2018-01-20] MEDS: PIPERACIL-TAZO 3.375 GM PREMIX 50 ML IV SCH ×3 (00:25→16:32)
[2018-01-20] MEDS: HYDROmorphone HCL PF 2 MG/ML VIAL IV PRN ×4 (03:15→19:45)
[2018-01-20 04:01] LABS: BILIRUBIN, URINE NEG (NEG); BLOOD, URINE NEG (NEG); GLUCOSE,URINE 1000 mg/dL (NEG); KETONE, URINE 40 mg/dL (NEG); NITRITE,URINE NEG (NEG); URINE COLOR YELLOW (YELLW/STRAW); URINE LEUKOCYTE ESTERASE NEG (NEG)
[2018-01-20 06:51] LABS: AUTOMATED NEUTROPHIL # 16.4 TH/MM3 (1.8-7.7); BASOPHIL # 0.1 TH/MM3 (0-0.2); BASOPHIL % 0.3 % (0.0-2.0); EOSINOPHIL # 0.1 TH/MM3 (0-0.4); EOSINOPHIL % 0.5 % (0.0-4.0); HEMATOCRIT 43.5 % (39.0-51.0); HEMOGLOBIN 14.5 GM/DL (13.0-17.0); LYMPH % 3.2 % (9.0-44.0); LYMPHOCYTE # 0.6 TH/MM3 (1.0-4.8); MEAN CELL VOLUME 85.4 FL (80.0-100.0); MEAN CORPUSCULAR HEMOGLOBIN 28.4 PG (27.0-34.0); MEAN CORPUSCULAR HGB CONC 33.2 % (32.0-36.0); MEAN PLATELET VOLUME 8.9 FL (7.0-11.0); MONOCYTE # 0.9 TH/MM3 (0-0.9); PLATELET COUNT 305 TH/MM3 (150-450); RED BLOOD COUNT 5.09 MIL/MM3 (4.50-5.90); WHITE BLOOD COUNT 18.1 TH/MM3 (4.0-11.0)
[2018-01-20 07:27] LABS: ALBUMIN 2.4 GM/DL (3.4-5.0); ALKALINE PHOSPHATASE 69 U/L (45-117); ALT (GPT) 14 U/L (12-78); AST (GOT) 13 U/L (15-37); BICARBONATE 18.2 MEQ/L (21.0-32.0); BLOOD UREA NITROGEN 34 MG/DL (7-18); CALCIUM 8.8 MG/DL (8.5-10.1); CHLORIDE 101 MEQ/L (98-107); CREATININE 1.73 MG/DL (0.60-1.30); GLOMERULAR FILTRATION RATE 40 ML/MIN (>89); GLUCOSE,RANDOM 258 MG/DL (74-106); SODIUM (NA) 134 MEQ/L (136-145); TOTAL BILIRUBIN ADULT 0.4 MG/DL (0.2-1.0); TOTAL PROTEIN 6.6 GM/DL (6.4-8.2)
[2018-01-20 07:50] LABS: BANDS 16 % (0-6); LYMPHOCYTES 6 % (9-44); METAMYELOCYTES 1 % (0-1); MONOCYTES 7 % (0-8); MYELOCYTES 5 % (0-0); NEUTROPHIL # MANUAL DIFF 15.7 TH/MM3 (1.8-7.7); POLYS (SEG NEUTROPHILS) 65 % (16-70); TOXIC GRANULATION 1+ (NORMAL)
[2018-01-20] MEDS: PRAVASTATIN SOD 40 MG TAB PO SCH (07:57)
[2018-01-20] MEDS: INSULIN ASPART SUPPLEMENTAL SCALE SQ SCH ×4 (08:00→21:02)
[2018-01-20] MEDS: DOCUSATE SODIUM 50 MG/SENNA 8.6 MG TAB PO SCH ×2 (09:15→21:03)
[2018-01-20] MEDS ORDERED: chlorproMAZINE HCL 25 MG TAB PO ONE (09:15)
--- NOTE | 2018-01-20 09:18 | HHI.PR ---
Subjective Remarks Patient c/o hiccups secondary to Dilaudid and urinary retention Objective Vitals Vital Signs Date Time Temp Pulse Resp B/P (MAP) Pulse Ox O2 Delivery O2 Flow Rate FiO2 01/20/18 08:46 18 01/20/18 08:00 99.1 81 18 101/56 (71) 93 01/20/18 05:42 79 01/20/18 05:02 98.2 77 14 105/57 (73) 98 01/20/18 03:12 98.5 82 18 131/60 (83) 95 01/20/18 00:49 90 01/19/18 23:52 01/19/18 20:28 99.8 86 21 98/51 (67) 95 Nasal Cannula 2.00 01/19/18 15:52 99.2 106 24 137/70 (92) 96 01/20/18 01/20/18 01/21/18 15:00 23:00 07:00 Intake Total 50 ml Balance 50 ml IV Total 50 ml Result Diagram: 01/20/18 0550 01/20/18 0550 Other Results Laboratory Tests Test 01/19/18 17:40 01/19/18 22:12 01/20/18 03:00 01/20/18 05:50 White Blood Count 22.3 TH/MM3 18.1 TH/MM3 Red Blood Count 6.08 MIL/MM3 5.09 MIL/MM3 Hemoglobin 17.3 GM/DL 14.5 GM/DL Hematocrit 52.3 % 43.5 % Mean Corpuscular Volume 86.0 FL 85.4 FL Mean Corpuscular Hemoglobin 28.4 PG 28.4 PG Mean Corpuscular Hemoglobin Concent 33.0 % 33.2 % Red Cell Distribution Width 14.2 % 14.0 % Platelet Count 353 TH/MM3 305 TH/MM3 Mean Platelet Volume 9.2 FL 8.9 FL Neutrophils (%) (Auto) 86.0 % 91.0 % Lymphocytes (%) (Auto) 6.5 % 3.2 % Monocytes (%) (Auto) 6.8 % 5.0 % Eosinophils (%) (Auto) 0.2 % 0.5 % Basophils (%) (Auto) 0.5 % 0.3 % Neutrophils # (Auto) 19.2 TH/MM3 16.4 TH/MM3 Lymphocytes # (Auto) 1.5 TH/MM3 0.6 TH/MM3 Monocytes # (Auto) 1.5 TH/MM3 0.9 TH/MM3 Eosinophils # (Auto) 0.0 TH/MM3 0.1 TH/MM3 Basophils # (Auto) 0.1 TH/MM3 0.1 TH/MM3 CBC Comment AUTO DIFF AUTO DIFF Differential Total Cells Counted 100 100 Neutrophils % (Manual) 69 % 65 % Band Neutrophils % 5 % 16 % Lymphocytes % 13 % 6 % Monocytes % 10 % 7 % Neutrophils # (Manual) 17.2 TH/MM3 15.7 TH/MM3 Metamyelocytes 3 % 1 % Differential Comment FINAL DIFF MANUAL FINAL DIFF MANUAL Platelet Estimate NORMAL NORMAL Platelet Morphology Comment ENLARGED NORMAL Prothrombin Time 10.4 SEC Prothromb Time International Ratio 1.0 RATIO Activated Partial Thromboplast Time 25.4 SEC Blood Urea Nitrogen 33 MG/DL 34 MG/DL Creatinine 1.71 MG/DL 1.73 MG/DL Random Glucose 280 MG/DL 258 MG/DL Total Protein 8.4 GM/DL 6.6 GM/DL Albumin 3.2 GM/DL 2.4 GM/DL Calcium Level 10.5 MG/DL 8.8 MG/DL Alkaline Phosphatase 101 U/L 69 U/L Aspartate Amino Transf (AST/SGOT) 17 U/L 13 U/L Alanine Aminotransferase (ALT/SGPT) 17 U/L 14 U/L Total Bilirubin 0.5 MG/DL 0.4 MG/DL Sodium Level 130 MEQ/L 134 MEQ/L Potassium Level 5.2 MEQ/L 4.7 MEQ/L Chloride Level 92 MEQ/L 101 MEQ/L Carbon Dioxide Level 18.7 MEQ/L 18.2 MEQ/L Anion Gap 19 MEQ/L 15 MEQ/L Estimat Glomerular Filtration Rate 41 ML/MIN 40 ML/MIN Lactic Acid Level 2.1 mmol/L 1.2 mmol/L Urine Color YELLOW Urine Turbidity CLEAR Urine pH 5.0 Urine Specific [place] 1.024 Urine Protein NEG mg/dL Urine Glucose (UA) 1000 mg/dL Urine Ketones 40 mg/dL Urine Occult Blood NEG Urine Nitrite NEG Urine Bilirubin NEG Urine Urobilinogen LESS THAN 2.0 MG/DL Urine Leukocyte Esterase NEG Urine RBC LESS THAN 1 /hpf Urine WBC LESS THAN 1 /hpf Microscopic Urinalysis Comment CATH-CULT NOT IND Myelocytes 5 % Toxic Granulation 1+ Red Cell Morphology Comment NORMAL Imaging Last 72 hours Impressions Scrotum Ultrasound 01/19/18 0000 Signed Impressions: Service Date/Time: Friday, January 19, 2018 20:47 - CONCLUSION: 1. Bilateral testicles have a normal appearance with intact flow by color Doppler. 2. Irregular shaped heterogeneous echotexture abnormality in the posterior scrotum measuring excess of 5 cm. Inder Campuzano MD Abdomen/Pelvis CT 01/19/18 0000 Signed Impressions: Service Date/Time: Friday, January 19, 2018 19:55 - CONCLUSION: 1. Induration of the subcutaneous soft tissues in the right perianal region without focal fluid collection. 2. Both collecting system and ureters are mildly dilated, but no calcified stones seen on either side. 3. Distended urinary bladder, similar to prior CT in 2000. Inder Campuzano MD Objective Remarks GENERAL: This is a well-nourished, well-developed patient, in no apparent distress. SKIN: right buttock with open wound with mild erythema/induration in gluteal cleft, perineal area and scrotum with edema, induration and ttp CARDIOVASCULAR: Regular rate and rhythm RESPIRATORY: Clear to auscultation. Breath sounds equal bilaterally. GASTROINTESTINAL: Abdomen soft, non-tender, nondistended. Normal active bowel sounds MUSCULOSKELETAL: Extremities without clubbing, cyanosis, or edema. NEURO: Alert & Oriented x4 to person, place, time, situation. Moves all ext x4 A/P Problem List: (1) Scrotal abscess ICD Codes: N49.2 - Inflammatory disorders of scrotum Status: Acute Plan: Provide IVF, pain meds, IV abx vanco (with pharmacy to dose) and Zosyn consult urology consult general surgery. Patient known to Dr. Youssef await further recommendations per urology and general surgery (2) Perirectal abscess ICD Codes: K61.1 - Rectal abscess Status: Acute Plan: see above (3) DM2 (diabetes mellitus, type 2) ICD Codes: E11.9 - Type 2 diabetes mellitus without complications Status: Chronic Plan: Hydrate. Accucheck with SSI. Hold outpt meds (4) GERD (gastroesophageal reflux disease) ICD Codes: K21.9 - Gastro-esophageal reflux disease without esophagitis Status: Chronic Plan: zantac (5) Hiccups ICD Codes: R06.6 - Hiccough Plan: Thorazine PRN (6) Urinary retention ICD Codes: R33.9 - Retention of urine, unspecified Plan: Place ram catheter Assessment and Plan Patient examined. Assessment and plan formulated with Roro Ball PA-C. I agree with the above. perirectal abscess. perineum cellulitis. cont abx. discussed with urology. await gen surg intervention pain controlled. Problem Qualifiers (1) DM2 (diabetes mellitus, type 2): Roro Ball Jan 20, 2018 09:18 Constantino Castellon MD Jan 20, 2018 15:58
[2018-01-20] MEDS: oxyCODONE/ACETAMINOPHEN 10 MG/325 MG TAB PO PRN ×2 (09:42→17:35)
--- NOTE | 2018-01-20 13:23 | PD.CONS ---
HPI Service Urology Consult Requested By Primary Care Physician Rick Funk M.D. Diagnosis: (1) Scrotal abscess ICD Code: N49.2 - Inflammatory disorders of scrotum (2) Perirectal abscess ICD Code: K61.1 - Rectal abscess (3) DM2 (diabetes mellitus, type 2) ICD Code: E11.9 - Type 2 diabetes mellitus without complications (4) Urinary retention ICD Code: R33.9 - Retention of urine, unspecified History of Present Illness 62 yo male h/o DM presents to ER under direction of Dr Grubbs perirectal abscess and pain/swelling in scrotum. First treated with Keflex abx 01/13/18 re : abscess, then had I&D performed by Dr Grubbs on 01/15/18 and was reportedly placed on Bactrim for last few days. Cltx of abscess revealed group B Strep. He had low grade fevers yesterday and noted more swelling in scrotum with difficulty having BMs and voiding over past 2 days. C/o nausea but no vomiting. Was seen in gen surgery office yesterday and directed to ER re: possible progression of abscess with possible scrotal abscess as well. CT abd/pelvis noted for induration in perineal area, but not obvious abscess. U/S scrotum reveal thickened scrotum, induration appx 5 cm heterogenous area. He was started on Iv antibiotics and Urology was consulted. He has had pain in his scrotum in the past but denies any prior scrotal abscess. He has had prgressively harder time voiding past couple days, including weak stream, feeling "full" but denies hematuria, dysuria. Ram catheter was placed for over 800 ml. He immediately felt better. Denies h/o kidney stones or UTIs. Review of Systems Gastrointestinal: COMPLAINS OF: Constipation Genitourinary: COMPLAINS OF: Testicular Pain Except as stated in HPI: all other systems reviewed are Neg Past Family Social History Past Medical History Perirectal Abscess, DM, HTN, GERD Past Surgical History circumcision, appendectomy, I & D perirectal abscess Reported Medications Lisinopril Allergies: Coded Allergies: No Known Allergies (Verified Allergy, Unknown, 01/20/18) morphine (Verified Adverse Reaction, Unknown, Hallucinations, 01/20/18) Family History Denies Gu malignancies, Urolithiasis Social History Denies tobacco, illicit drugs, EtOH; Physical Exam Vital Signs Date Time Temp Pulse Resp B/P (MAP) Pulse Ox O2 Delivery O2 Flow Rate FiO2 01/20/18 12:50 20 01/20/18 12:00 97.0 81 20 118/55 (76) 92 01/20/18 10:45 18 01/20/18 08:00 99.1 81 18 101/56 (71) 93 01/20/18 05:42 79 01/20/18 05:02 98.2 77 14 105/57 (73) 98 01/20/18 03:12 98.5 82 18 131/60 (83) 95 01/20/18 00:49 90 01/19/18 23:52 01/19/18 20:28 99.8 86 21 98/51 (67) 95 Nasal Cannula 2.00 01/19/18 15:52 99.2 106 24 137/70 (92) 96 Physical Exam GENERAL: This is a well-nourished, well-developed patient, in no apparent distress. SKIN: No rashes, ecchymoses or lesions. Cool and dry. HEAD: Atraumatic. Normocephalic. No temporal or scalp tenderness. EYES: Pupils equal round and reactive. Extraocular motions intact. No scleral icterus. No injection or drainage. ENT: Nose without bleeding, purulent drainage or septal hematoma. Throat without erythema, tonsillar hypertrophy or exudate. Uvula midline. Airway patent. NECK: Trachea midline. No JVD or lymphadenopathy. Supple, nontender, no meningeal signs. CARDIOVASCULAR: Regular rate and rhythm without murmurs, gallops, or rubs. RESPIRATORY: Clear to auscultation. Breath sounds equal bilaterally. No wheezes , rales, or rhonchi. GASTROINTESTINAL: Abdomen soft, non-tender, nondistended. No hepato-splenomegaly , or palpable masses. No guarding. GENITOURINARY: phallus circumcised, testes descended without mass; no erythema or swelling noted; has swelling of perineum but no induration or drainage noted. MUSCULOSKELETAL: Extremities without clubbing, cyanosis, or edema. No joint tenderness, effusion, or edema noted. No calf tenderness. Negative Homans sign bilaterally. NEUROLOGICAL: Awake and alert. Cranial nerves II through XII intact. Motor and sensory grossly within normal limits. Five out of 5 muscle strength in all muscle groups. Normal speech. Lab results reviewed: Yes Laboratory Tests Test 01/19/18 17:40 01/19/18 22:12 01/20/18 03:00 01/20/18 05:50 White Blood Count 22.3 18.1 Red Blood Count 6.08 5.09 Hemoglobin 17.3 14.5 Hematocrit 52.3 43.5 Mean Corpuscular Volume 86.0 85.4 Mean Corpuscular Hemoglobin 28.4 28.4 Mean Corpuscular Hemoglobin Concent 33.0 33.2 Red Cell Distribution Width 14.2 14.0 Platelet Count 353 305 Mean Platelet Volume 9.2 8.9 Neutrophils (%) (Auto) 86.0 91.0 Lymphocytes (%) (Auto) 6.5 3.2 Monocytes (%) (Auto) 6.8 5.0 Eosinophils (%) (Auto) 0.2 0.5 Basophils (%) (Auto) 0.5 0.3 Neutrophils # (Auto) 19.2 16.4 Lymphocytes # (Auto) 1.5 0.6 Monocytes # (Auto) 1.5 0.9 Eosinophils # (Auto) 0.0 0.1 Basophils # (Auto) 0.1 0.1 CBC Comment AUTO DIFF AUTO DIFF Differential Total Cells Counted 100 100 Neutrophils % (Manual) 69 65 Band Neutrophils % 5 16 Lymphocytes % 13 6 Monocytes % 10 7 Neutrophils # (Manual) 17.2 15.7 Metamyelocytes 3 1 Differential Comment FINAL DIFF MANUAL FINAL DIFF MANUAL Platelet Estimate NORMAL NORMAL Platelet Morphology Comment ENLARGED NORMAL Prothrombin Time 10.4 Prothromb Time International Ratio 1.0 Activated Partial Thromboplast Time 25.4 Blood Urea Nitrogen 33 34 Creatinine 1.71 1.73 Random Glucose 280 258 Total Protein 8.4 6.6 Albumin 3.2 2.4 Calcium Level 10.5 8.8 Alkaline Phosphatase 101 69 Aspartate Amino Transf (AST/SGOT) 17 13 Alanine Aminotransferase (ALT/SGPT) 17 14 Total Bilirubin 0.5 0.4 Sodium Level 130 134 Potassium Level 5.2 4.7 Chloride Level 92 101 Carbon Dioxide Level 18.7 18.2 Anion Gap 19 15 Estimat Glomerular Filtration Rate 41 40 Lactic Acid Level 2.1 1.2 Urine Color YELLOW Urine Turbidity CLEAR Urine pH 5.0 Urine Specific [place] 1.024 Urine Protein NEG Urine Glucose (UA) 1000 Urine Ketones 40 Urine Occult Blood NEG Urine Nitrite NEG Urine Bilirubin NEG Urine Urobilinogen LESS THAN 2.0 Urine Leukocyte Esterase NEG Urine RBC LESS THAN 1 Urine WBC LESS THAN 1 Microscopic Urinalysis Comment CATH-CULT NOT IND Myelocytes 5 Toxic Granulation 1+ Red Cell Morphology Comment NORMAL Date/Time Source Procedure Growth Status 01/19/18 17:40 Blood Peripheral Aerobic Blood Culture - Preliminary NO GROWTH IN 1 DAY Resulted 01/19/18 17:40 Blood Peripheral Anaerobic Blood Culture - Preliminary NO GROWTH IN 1 DAY Resulted Result Diagram: 01/20/18 0550 01/20/18 0550 Personally reviewed images: Yes (Scrotal U/S shows heterogenous area, approx 5 cm in posterior scrotum, extending to perineum) Imaging Last Impressions Scrotum Ultrasound 01/19/18 0000 Signed Impressions: Service Date/Time: Friday, January 19, 2018 20:47 - CONCLUSION: 1. Bilateral testicles have a normal appearance with intact flow by color Doppler. 2. Irregular shaped heterogeneous echotexture abnormality in the posterior scrotum measuring excess of 5 cm. Inder Campuzano MD Abdomen/Pelvis CT 01/19/18 0000 Signed Impressions: Service Date/Time: Friday, January 19, 2018 19:55 - CONCLUSION: 1. Induration of the subcutaneous soft tissues in the right perianal region without focal fluid collection. 2. Both collecting system and ureters are mildly dilated, but no calcified stones seen on either side. 3. Distended urinary bladder, similar to prior CT in 2000. Inder Campuzano MD Assessment and Plan Problem List: (1) Scrotal abscess ICD Code: N49.2 - Inflammatory disorders of scrotum Status: Acute (2) Perirectal abscess ICD Code: K61.1 - Rectal abscess Status: Acute (3) Urinary retention ICD Code: R33.9 - Retention of urine, unspecified Assessment and Plan Recommnned IV antibiotics. [place] in 24 hours. If no clinical improvement, will I & d perineum. Start Flomax. Leave ram x 1 week. Will void trail as outpatient. Problem Qualifiers (1) DM2 (diabetes mellitus, type 2): Mike Rowe MD Jan 20, 2018 13:23
[2018-01-20] MEDS: TAMSULOSIN HCL 0.4 MG CAP PO SCH (14:15)
[2018-01-20] MEDS ORDERED: LACTULOSE SYRUP 20 GM/30 ML CUP PO PRN (14:30)
[2018-01-20] MEDS ORDERED: SIMETHICONE 125 MG CHEWABLE TAB PO ONE (14:30)
[2018-01-20] MEDS: chlorproMAZINE HCL 25 MG TAB PO PRN (19:45)
[2018-01-20] MEDS ORDERED: SIMETHICONE 125 MG CHEWABLE TAB PO PRN (22:00)
[2018-01-21] VITALS (7 sets, daily range): BP systolic 124–168; BP diastolic 56–78; PULSE 80–93; RESP 15–20; TEMP 96.4–98.2; O2SAT 92–99
[2018-01-21] MEDS: PIPERACIL-TAZO 3.375 GM PREMIX 50 ML IV SCH ×3 (00:36→16:31)
[2018-01-21] MEDS: oxyCODONE/ACETAMINOPHEN 10 MG/325 MG TAB PO PRN ×4 (01:55→20:46)
[2018-01-21] MEDS: HYDROmorphone HCL PF 2 MG/ML VIAL IV PRN (05:20)
[2018-01-21 07:23] LABS: AUTOMATED NEUTROPHIL # 13.9 TH/MM3 (1.8-7.7); BASOPHIL % 0.2 % (0.0-2.0); EOSINOPHIL # 0.6 TH/MM3 (0-0.4); EOSINOPHIL % 3.7 % (0.0-4.0); HEMATOCRIT 42.4 % (39.0-51.0); HEMOGLOBIN 14.1 GM/DL (13.0-17.0); LYMPH % 6.2 % (9.0-44.0); MEAN CELL VOLUME 84.6 FL (80.0-100.0); MEAN CORPUSCULAR HEMOGLOBIN 28.1 PG (27.0-34.0); MEAN CORPUSCULAR HGB CONC 33.2 % (32.0-36.0); MEAN PLATELET VOLUME 8.9 FL (7.0-11.0); MONO % 5.5 % (0.0-8.0); MONOCYTE # 0.9 TH/MM3 (0-0.9); NEUT % 84.4 % (16.0-70.0); PLATELET COUNT 313 TH/MM3 (150-450); RED BLOOD COUNT 5.02 MIL/MM3 (4.50-5.90); RED CELL DISTRIBUTION WIDTH 14.1 % (11.6-17.2); WHITE BLOOD COUNT 16.4 TH/MM3 (4.0-11.0)
[2018-01-21 07:44] LABS: BICARBONATE 22.1 MEQ/L (21.0-32.0); CALCIUM 8.7 MG/DL (8.5-10.1); CREATININE 1.32 MG/DL (0.60-1.30)
[2018-01-21 07:45] LABS: RANDOM VANCOMYCIN 3.6 COMMENT
[2018-01-21 08:32] LABS: BANDS 15 % (0-6); BASOPHILS 1 % (0-2); LYMPHOCYTES 11 % (9-44); MONOCYTES 5 % (0-8); NEUTROPHIL # MANUAL DIFF 13.4 TH/MM3 (1.8-7.7); POLYS (SEG NEUTROPHILS) 67 % (16-70)
[2018-01-21 08:33] LABS: TOXIC GRANULATION 1+ (NORMAL)
--- NOTE | 2018-01-21 08:56 | HHI.PR ---
Subjective Remarks Pt reports that his hiccups are unchanged Pt is afebrile He states that he had a lot of drainage from the david-rectal wound last night which "soaked the lam" and his gown. Objective Vitals Vital Signs Date Time Temp Pulse Resp B/P (MAP) Pulse Ox O2 Delivery O2 Flow Rate FiO2 01/21/18 04:57 98.0 80 16 127/67 (87) 98 01/21/18 04:00 82 01/21/18 01:44 96.4 86 16 124/56 (78) 99 01/20/18 20:15 98.0 97 16 107/55 (72) 93 01/20/18 18:48 18 01/20/18 17:00 97.3 92 20 132/59 (83) 93 01/20/18 12:50 20 01/20/18 12:00 97.0 81 20 118/55 (76) 92 Result Diagram: 01/21/18 0602 01/21/18 0602 Other Results Laboratory Tests Test 01/19/18 17:40 01/19/18 22:12 01/20/18 03:00 01/20/18 05:50 White Blood Count 22.3 TH/MM3 18.1 TH/MM3 Red Blood Count 6.08 MIL/MM3 5.09 MIL/MM3 Hemoglobin 17.3 GM/DL 14.5 GM/DL Hematocrit 52.3 % 43.5 % Mean Corpuscular Volume 86.0 FL 85.4 FL Mean Corpuscular Hemoglobin 28.4 PG 28.4 PG Mean Corpuscular Hemoglobin Concent 33.0 % 33.2 % Red Cell Distribution Width 14.2 % 14.0 % Platelet Count 353 TH/MM3 305 TH/MM3 Mean Platelet Volume 9.2 FL 8.9 FL Neutrophils (%) (Auto) 86.0 % 91.0 % Lymphocytes (%) (Auto) 6.5 % 3.2 % Monocytes (%) (Auto) 6.8 % 5.0 % Eosinophils (%) (Auto) 0.2 % 0.5 % Basophils (%) (Auto) 0.5 % 0.3 % Neutrophils # (Auto) 19.2 TH/MM3 16.4 TH/MM3 Lymphocytes # (Auto) 1.5 TH/MM3 0.6 TH/MM3 Monocytes # (Auto) 1.5 TH/MM3 0.9 TH/MM3 Eosinophils # (Auto) 0.0 TH/MM3 0.1 TH/MM3 Basophils # (Auto) 0.1 TH/MM3 0.1 TH/MM3 CBC Comment AUTO DIFF AUTO DIFF Differential Total Cells Counted 100 100 Neutrophils % (Manual) 69 % 65 % Band Neutrophils % 5 % 16 % Lymphocytes % 13 % 6 % Monocytes % 10 % 7 % Neutrophils # (Manual) 17.2 TH/MM3 15.7 TH/MM3 Metamyelocytes 3 % 1 % Differential Comment FINAL DIFF MANUAL FINAL DIFF MANUAL Platelet Estimate NORMAL NORMAL Platelet Morphology Comment ENLARGED NORMAL Prothrombin Time 10.4 SEC Prothromb Time International Ratio 1.0 RATIO Activated Partial Thromboplast Time 25.4 SEC Blood Urea Nitrogen 33 MG/DL 34 MG/DL Creatinine 1.71 MG/DL 1.73 MG/DL Random Glucose 280 MG/DL 258 MG/DL Total Protein 8.4 GM/DL 6.6 GM/DL Albumin 3.2 GM/DL 2.4 GM/DL Calcium Level 10.5 MG/DL 8.8 MG/DL Alkaline Phosphatase 101 U/L 69 U/L Aspartate Amino Transf (AST/SGOT) 17 U/L 13 U/L Alanine Aminotransferase (ALT/SGPT) 17 U/L 14 U/L Total Bilirubin 0.5 MG/DL 0.4 MG/DL Sodium Level 130 MEQ/L 134 MEQ/L Potassium Level 5.2 MEQ/L 4.7 MEQ/L Chloride Level 92 MEQ/L 101 MEQ/L Carbon Dioxide Level 18.7 MEQ/L 18.2 MEQ/L Anion Gap 19 MEQ/L 15 MEQ/L Estimat Glomerular Filtration Rate 41 ML/MIN 40 ML/MIN Lactic Acid Level 2.1 mmol/L 1.2 mmol/L Urine Color YELLOW Urine Turbidity CLEAR Urine pH 5.0 Urine Specific [place] 1.024 Urine Protein NEG mg/dL Urine Glucose (UA) 1000 mg/dL Urine Ketones 40 mg/dL Urine Occult Blood NEG Urine Nitrite NEG Urine Bilirubin NEG Urine Urobilinogen LESS THAN 2.0 MG/DL Urine Leukocyte Esterase NEG Urine RBC LESS THAN 1 /hpf Urine WBC LESS THAN 1 /hpf Microscopic Urinalysis Comment CATH-CULT NOT IND Myelocytes 5 % Toxic Granulation 1+ Red Cell Morphology Comment NORMAL Test 01/21/18 06:02 White Blood Count 16.4 TH/MM3 Red Blood Count 5.02 MIL/MM3 Hemoglobin 14.1 GM/DL Hematocrit 42.4 % Mean Corpuscular Volume 84.6 FL Mean Corpuscular Hemoglobin 28.1 PG Mean Corpuscular Hemoglobin Concent 33.2 % Red Cell Distribution Width 14.1 % Platelet Count 313 TH/MM3 Mean Platelet Volume 8.9 FL Neutrophils (%) (Auto) 84.4 % Lymphocytes (%) (Auto) 6.2 % Monocytes (%) (Auto) 5.5 % Eosinophils (%) (Auto) 3.7 % Basophils (%) (Auto) 0.2 % Neutrophils # (Auto) 13.9 TH/MM3 Lymphocytes # (Auto) 1.0 TH/MM3 Monocytes # (Auto) 0.9 TH/MM3 Eosinophils # (Auto) 0.6 TH/MM3 Basophils # (Auto) 0.0 TH/MM3 CBC Comment AUTO DIFF Differential Total Cells Counted 100 Neutrophils % (Manual) 67 % Band Neutrophils % 15 % Lymphocytes % 11 % Monocytes % 5 % Eosinophils % 1 % Basophils % 1 % Neutrophils # (Manual) 13.4 TH/MM3 Differential Comment FINAL DIFF MANUAL Toxic Granulation 1+ Platelet Estimate NORMAL Platelet Morphology Comment NORMAL Red Cell Morphology Comment NORMAL Blood Urea Nitrogen 22 MG/DL Creatinine 1.32 MG/DL Random Glucose 202 MG/DL Calcium Level 8.7 MG/DL Sodium Level 135 MEQ/L Potassium Level 4.4 MEQ/L Chloride Level 102 MEQ/L Carbon Dioxide Level 22.1 MEQ/L Anion Gap 11 MEQ/L Estimat Glomerular Filtration Rate 55 ML/MIN Random Vancomycin Level 3.6 COMMENT Imaging Last 72 hours Impressions Scrotum Ultrasound 01/19/18 Signed Impressions: Service Date/Time: Friday, January 19, 2018 20:47 - CONCLUSION: 1. Bilateral testicles have a normal appearance with intact flow by color Doppler. 2. Irregular shaped heterogeneous echotexture abnormality in the posterior scrotum measuring excess of 5 cm. Indre Campuzano MD Abdomen/Pelvis CT 01/19/18 Signed Impressions: Service Date/Time: Friday, January 19, 2018 19:55 - CONCLUSION: 1. Induration of the subcutaneous soft tissues in the right perianal region without focal fluid collection. 2. Both collecting system and ureters are mildly dilated, but no calcified stones seen on either side. 3. Distended urinary bladder, similar to prior CT in 2000. Inder Campuzano MD Objective Remarks GENERAL: This is a well-nourished, well-developed patient, in no apparent distress. SKIN: right buttock wound with packing in place, mild erythema/induration in gluteal cleft, perineal area and scrotum with edema, induration and ttp CARDIO: Regular RESP: CTA bilaterally. ABD: +BS, soft, non-tender, nondistended. EXT: No edema. A/P Problem List: (1) Scrotal abscess ICD Codes: N49.2 - Inflammatory disorders of scrotum Status: Acute Plan: - 62 y/o WM with DM who presented to the ED for perirectal abscess and pain/ swelling in scrotum. - Pt was first treated with Keflex on 01/13/18 for david-rectal abscess, then had I&D performed by Dr Grubbs on 01/15/18 and was reportedly placed on Bactrim for last few days. Cultures of abscess revealed group B Strep. He developed low grade fevers on 01/19 and complained of more swelling in scrotum with difficulty having BMs over the previous 2 days. - Was seen in gen surgery office on 01/19 and directed to ER for possible progression of abscess with possible scrotal abscess as well. - CT abd/pelvis (01/19/18) --> Induration of the subcutaneous soft tissues in the right perianal region without focal fluid collection. Both collecting system and ureters are mildly dilated, but no calcified stones seen on either side. Distended urinary bladder, similar to prior CT in 2000. - U/S scrotum (01/19/18) --> Bilateral testicles have a normal appearance with intact flow by color Doppler. Irregular shaped heterogeneous echotexture abnormality in the posterior scrotum measuring excess of 5 cm. - Pt was started on IV Vanco (with pharmacy to dose) and Zosyn, IVF and pain meds PRN - Urology Following - General surgery consulted. Patient known to Dr. Youssef - Await further recommendations per urology and general surgery (2) Perirectal abscess ICD Codes: K61.1 - Rectal abscess Status: Acute Plan: -See above (3) DM2 (diabetes mellitus, type 2) ICD Codes: E11.9 - Type 2 diabetes mellitus without complications Status: Chronic Plan: - BS are high - Increase SSI to high dose - Add Levemir 5 units BID - Hold outpt meds (4) Urinary retention ICD Codes: R33.9 - Retention of urine, unspecified Plan: - Johnson catheter - Pt started on Flomax Assessment and Plan Patient examined. Assessment and plan formulated with Harmony Fallon PA-C. I agree with the above. perirectal abscess. perineum cellulitis. still alot of pus drainage from the wound. excoriations of scrotum await gen surgical decisions. cont abx. pain control increase insulin. Problem Qualifiers (1) DM2 (diabetes mellitus, type 2): Harmnoy Fallon Jan 21, 2018 08:56 Constantino Castellon MD Jan 21, 2018 12:34
[2018-01-21] MEDS: INSULIN ASPART SUPPLEMENTAL SCALE SQ SCH ×4 (09:08→21:08)
[2018-01-21] MEDS: TAMSULOSIN HCL 0.4 MG CAP PO SCH (09:08)
[2018-01-21] MEDS: PRAVASTATIN SOD 40 MG TAB PO SCH (09:09)
[2018-01-21] MEDS: DOCUSATE SODIUM 50 MG/SENNA 8.6 MG TAB PO SCH ×2 (09:09→20:45)
[2018-01-21] MEDS ORDERED: DEXTROSE 50% IN WATER 50 ML VIAL(D50) IV PUSH PRN (11:45)
[2018-01-21] MEDS ORDERED: GLUCAGON 1 MG/ML VIAL OTHER PRN (11:45)
--- NOTE | 2018-01-21 12:51 | HHI.PR ---
Subjective Patient symptoms today 01/20/18: 62 yo male h/o DM presents to ER under direction of Dr Grubbs perirectal abscess and pain/swelling in scrotum. First treated with Keflex abx 01/13/18 re: abscess, then had I&D performed by Dr Grubbs on 01/15/18 and was reportedly placed on Bactrim for last few days. Cltx of abscess revealed group B Strep. He had low grade fevers yesterday and noted more swelling in scrotum with difficulty having BMs and voiding over past 2 days. C/o nausea but no vomiting. Was seen in gen surgery office yesterday and directed to ER re: possible progression of abscess with possible scrotal abscess as well. CT abd/ pelvis noted for induration in perineal area, but not obvious abscess. U/S scrotum reveal thickened scrotum, induration appx 5 cm heterogenous area. He was started on Iv antibiotics and Urology was consulted. He has had pain in his scrotum in the past but denies any prior scrotal abscess. He has had progressively harder time voiding past couple days, including weak stream, feeling "full" but denies hematuria, dysuria. Ram catheter was placed for over 800 ml. He immediately felt better. Denies h/o kidney stones or UTIs. 01/21/18: Pt was seen at bed side. States that feels a little better, but still admits perineal pain and perirectal pain where abscess was drained. Admits d/c from the wound no f/c/n/v. Creatinine improved after ram placement. Urine is clear yellow. Leukocytosis is trending down and is 16 now Objective Vital Signs Vital Signs Date Time Temp Pulse Resp B/P (MAP) Pulse Ox O2 Delivery O2 Flow Rate FiO2 01/21/18 08:12 98.0 93 20 129/60 (83) 92 01/21/18 04:57 98.0 80 16 127/67 (87) 98 01/21/18 04:00 82 01/21/18 01:44 96.4 86 16 124/56 (78) 99 01/20/18 20:15 98.0 97 16 107/55 (72) 93 01/20/18 18:48 18 01/20/18 17:00 97.3 92 20 132/59 (83) 93 01/20/18 12:50 20 Intake & Output 01/21/18 01/21/18 07:00 19:00 Intake Total 2500 ml Output Total 2200 ml Balance 300 ml Intake Oral 2500 ml Output Urine Total 2200 ml # Voids 1 Result Diagram: 01/21/18 0602 01/21/18 06 Objective Remarks Scrotal exam and testicular exam are normal Ram is in place + Perineal inflammation due to his abscess. Perirectal wound is packed, draining white d/c Medications and IVs Current Medications Medications (Trade) Dose Ordered Sig/Laila Route Start Time Stop Time Status Last Admin (NS Flush) 2 ml UNSCH PRN IV FLUSH 01/19/18 19:30 Pharmacy Profile Note 0 ml @ 0 mls/hr UNSCH OTHER 01/20/18 00:00 Piperacillin Sod/ Tazobactam Sod 50 ml @ 100 mls/hr Q8H IV 01/20/18 00:00 01/21/18 07:50 (Zofran Inj) 4 mg Q6HR PRN IV PUSH 01/20/18 00:00 (Pravachol) 40 mg DAILY PO 01/20/18 09:00 01/21/18 09:09 (Dilaudid Pf Inj) 1 mg Q3H PRN IV 01/20/18 01:45 01/21/18 05:20 (Thorazine) 25 mg Q8H PRN PO 01/20/18 09:15 01/20/18 19:45 (Percocet 10-325 Mg) 1 tab Q4H PRN PO 01/20/18 09:15 01/21/18 09:22 (Korina-Colace) 2 tab BID PO 01/20/18 09:15 01/21/18 09:09 (Flomax) 0.4 mg DAILY PO 01/20/18 14:00 01/21/18 09:08 (Milk Of Magnesia Liq) 30 ml DAILY PRN PO 01/20/18 14:30 (Lactulose Liq) 30 ml DAILY PRN PO 01/20/18 14:30 (Phazyme Chew) 125 mg Q8HR PRN PO 01/20/18 22:00 (Levemir Inj) 5 units Q12HR SQ 01/21/18 21:00 (NovoLOG SUPPLEMENTAL SCALE) 1 ACHS SLIDING SCALE SQ 01/21/18 12:00 (D50w (Vial) Inj) 50 ml UNSCH PRN IV PUSH 01/21/18 11:45 (Glucagon Inj) 1 mg UNSCH PRN OTHER 01/21/18 11:45 Assessment and Plan Problem List: (1) Scrotal abscess ICD Code: N49.2 - Inflammatory disorders of scrotum Status: Acute (2) Perirectal abscess ICD Code: K61.1 - Rectal abscess Status: Acute (3) Urinary retention ICD Code: R33.9 - Retention of urine, unspecified Assessment and Plan Continue care as per primary team Continue IV antibiotics and fluids. Pt needs a General surgery evaluation since his abscess tract may have extended to perineum and possibly will require additional I&D by surgical team Continue Flomax. Leave ram x 1 week. Will need void trail as outpatient. No additional intervention needed Urology will remain available as needed Jayce Judd Jan 21, 2018 12:51
[2018-01-21] MEDS: VANCOMYCIN INJ 1,750 MG in SODIUM CHLORID 0.9% 500 ML INJ 500 ML IV SCH (17:42)
[2018-01-21] MEDS: INSULIN DETEMIR 100 UNITS/ML VIAL SQ SCH (21:08)
[2018-01-22] VITALS (8 sets, daily range): BP systolic 126–155; BP diastolic 62–79; PULSE 68–88; RESP 16–20; TEMP 98–98.8; O2SAT 94–97
[2018-01-22] MEDS: PIPERACIL-TAZO 3.375 GM PREMIX 50 ML IV SCH ×3 (00:37→15:08)
[2018-01-22] MEDS ORDERED: CHLORHEXIDINE GLUCONATE 2 % 1 PACK (2 CLOTHS) TOPICAL PRN (06:15)
[2018-01-22] MEDS ORDERED: SODIUM CHLORID 0.9% 500 ML IV PRN (06:15)
[2018-01-22] MEDS ORDERED: POVIDONE IODINE 5% (ANTISEPSIS KIT) 4 APPLICATIONS EACH NARE PRN (06:15)
[2018-01-22 07:27] LABS: BICARBONATE 24.4 MEQ/L (21.0-32.0); CREATININE 0.96 MG/DL (0.60-1.30); MAGNESIUM 1.9 MG/DL (1.5-2.5)
[2018-01-22 07:41] LABS: AUTOMATED NEUTROPHIL # 14.8 TH/MM3 (1.8-7.7); BASOPHIL % 0.2 % (0.0-2.0); EOSINOPHIL # 0.5 TH/MM3 (0-0.4); EOSINOPHIL % 3.1 % (0.0-4.0); HEMATOCRIT 48.1 % (39.0-51.0); HEMOGLOBIN 15.7 GM/DL (13.0-17.0); LYMPH % 5.4 % (9.0-44.0); MEAN CELL VOLUME 87.1 FL (80.0-100.0); MEAN CORPUSCULAR HEMOGLOBIN 28.5 PG (27.0-34.0); MEAN CORPUSCULAR HGB CONC 32.7 % (32.0-36.0); MEAN PLATELET VOLUME 8.2 FL (7.0-11.0); MONO % 7.3 % (0.0-8.0); MONOCYTE # 1.3 TH/MM3 (0-0.9); PLATELET COUNT 280 TH/MM3 (150-450); RED BLOOD COUNT 5.52 MIL/MM3 (4.50-5.90); RED CELL DISTRIBUTION WIDTH 14.3 % (11.6-17.2); WHITE BLOOD COUNT 17.6 TH/MM3 (4.0-11.0)
[2018-01-22] MEDS: INSULIN ASPART SUPPLEMENTAL SCALE SQ SCH ×4 (08:00→23:00)
[2018-01-22] MEDS: INSULIN DETEMIR 100 UNITS/ML VIAL SQ SCH ×2 (08:03→23:00)
[2018-01-22] MEDS: TAMSULOSIN HCL 0.4 MG CAP PO SCH (08:40)
[2018-01-22] MEDS: DOCUSATE SODIUM 50 MG/SENNA 8.6 MG TAB PO SCH ×2 (08:40→20:57)
[2018-01-22] MEDS: oxyCODONE/ACETAMINOPHEN 10 MG/325 MG TAB PO PRN ×3 (08:41→20:58)
[2018-01-22] MEDS: PRAVASTATIN SOD 40 MG TAB PO SCH (08:41)
[2018-01-22 09:32] LABS: BANDS 8 % (0-6); LYMPHOCYTES 5 % (9-44); MONOCYTES 3 % (0-8); MYELOCYTES 2 % (0-0); POLYS (SEG NEUTROPHILS) 75 % (16-70); TOXIC GRANULATION 1+ (NORMAL)
[2018-01-22] MEDS: LACTATED RINGER'S 1000 ML IV PRN ×2 (09:43→11:02)
[2018-01-22] MEDS: PANTOPRAZOLE SODIUM 40 MG VIAL IV PUSH SCH ×2 (10:05→20:57)
--- NOTE | 2018-01-22 11:15 | HHI.PR ---
Subjective Remarks Pt planned for surgical intervention with Dr. Corona this morning. Pt reports that he is still having pain but the pain medication is helping Pt is afebrile Objective Vitals Vital Signs Date Time Temp Pulse Resp B/P (MAP) Pulse Ox O2 Delivery O2 Flow Rate FiO2 01/22/18 08:32 98.1 88 20 130/66 (87) 95 01/22/18 04:59 86 01/22/18 03:33 98.8 85 16 155/79 (104) 94 01/21/18 23:47 97.6 82 15 135/67 (89) 93 01/21/18 19:56 97.3 92 16 168/78 (108) 96 01/21/18 16:25 98.2 84 18 142/72 (95) 93 01/22/18 01/22/18 01/23/18 15:00 23:00 07:00 Intake Total 800 ml Output Total 1900 ml Balance -1100 ml Intake Oral 800 ml Output Urine Total 1900 ml Result Diagram: 01/22/18 0650 01/22/18 0650 Other Results Laboratory Tests Test 01/21/18 06:02 01/22/18 06:50 White Blood Count 16.4 TH/MM3 17.6 TH/MM3 Red Blood Count 5.02 MIL/MM3 5.52 MIL/MM3 Hemoglobin 14.1 GM/DL 15.7 GM/DL Hematocrit 42.4 % 48.1 % Mean Corpuscular Volume 84.6 FL 87.1 FL Mean Corpuscular Hemoglobin 28.1 PG 28.5 PG Mean Corpuscular Hemoglobin Concent 33.2 % 32.7 % Red Cell Distribution Width 14.1 % 14.3 % Platelet Count 313 TH/MM3 280 TH/MM3 Mean Platelet Volume 8.9 FL 8.2 FL Neutrophils (%) (Auto) 84.4 % 84.0 % Lymphocytes (%) (Auto) 6.2 % 5.4 % Monocytes (%) (Auto) 5.5 % 7.3 % Eosinophils (%) (Auto) 3.7 % 3.1 % Basophils (%) (Auto) 0.2 % 0.2 % Neutrophils # (Auto) 13.9 TH/MM3 14.8 TH/MM3 Lymphocytes # (Auto) 1.0 TH/MM3 1.0 TH/MM3 Monocytes # (Auto) 0.9 TH/MM3 1.3 TH/MM3 Eosinophils # (Auto) 0.6 TH/MM3 0.5 TH/MM3 Basophils # (Auto) 0.0 TH/MM3 0.0 TH/MM3 CBC Comment AUTO DIFF AUTO DIFF Differential Total Cells Counted 100 100 Neutrophils % (Manual) 67 % 75 % Band Neutrophils % 15 % 8 % Lymphocytes % 11 % 5 % Monocytes % 5 % 3 % Eosinophils % 1 % 7 % Basophils % 1 % Neutrophils # (Manual) 13.4 TH/MM3 15.0 TH/MM3 Differential Comment FINAL DIFF MANUAL FINAL DIFF MANUAL Toxic Granulation 1+ 1+ Platelet Estimate NORMAL NORMAL Platelet Morphology Comment NORMAL NORMAL Red Cell Morphology Comment NORMAL NORMAL Blood Urea Nitrogen 22 MG/DL 18 MG/DL Creatinine 1.32 MG/DL 0.96 MG/DL Random Glucose 202 MG/DL 191 MG/DL Calcium Level 8.7 MG/DL 9.0 MG/DL Sodium Level 135 MEQ/L 135 MEQ/L Potassium Level 4.4 MEQ/L 4.2 MEQ/L Chloride Level 102 MEQ/L 99 MEQ/L Carbon Dioxide Level 22.1 MEQ/L 24.4 MEQ/L Anion Gap 11 MEQ/L 12 MEQ/L Estimat Glomerular Filtration Rate 55 ML/MIN 79 ML/MIN Random Vancomycin Level 3.6 COMMENT Myelocytes 2 % Magnesium Level 1.9 MG/DL Imaging Last 72 hours Impressions Scrotum Ultrasound 01/19/18 Signed Impressions: Service Date/Time: Friday, January 19, 2018 20:47 - CONCLUSION: 1. Bilateral testicles have a normal appearance with intact flow by color Doppler. 2. Irregular shaped heterogeneous echotexture abnormality in the posterior scrotum measuring excess of 5 cm. Inder Campuzano MD Abdomen/Pelvis CT 01/19/18 Signed Impressions: Service Date/Time: Friday, January 19, 2018 19:55 - CONCLUSION: 1. Induration of the subcutaneous soft tissues in the right perianal region without focal fluid collection. 2. Both collecting system and ureters are mildly dilated, but no calcified stones seen on either side. 3. Distended urinary bladder, similar to prior CT in 2000. Inder Campuzano MD Objective Remarks GENERAL: This is a well-nourished, well-developed patient, in no apparent distress. SKIN: right buttock wound with packing in place, mild erythema/induration in gluteal cleft, perineal area and scrotum with edema, induration and ttp CARDIO: Regular RESP: CTA bilaterally. ABD: +BS, soft, non-tender, nondistended. EXT: No edema. A/P Problem List: (1) Scrotal abscess ICD Codes: N49.2 - Inflammatory disorders of scrotum Status: Acute Plan: - 62 y/o WM with DM who presented to the ED for perirectal abscess and pain/ swelling in scrotum. - Pt was first treated with Keflex on 01/13/18 for david-rectal abscess, then had I&D performed by Dr Grubbs on 01/15/18 and was reportedly placed on Bactrim for last few days. Cultures of abscess revealed group B Strep. He developed low grade fevers on 01/19 and complained of more swelling in scrotum with difficulty having BMs over the previous 2 days. - Was seen in gen surgery office on 01/19 and directed to ER for possible progression of abscess with possible scrotal abscess as well. - CT abd/pelvis (01/19/18) --> Induration of the subcutaneous soft tissues in the right perianal region without focal fluid collection. Both collecting system and ureters are mildly dilated, but no calcified stones seen on either side. Distended urinary bladder, similar to prior CT in 2000. - U/S scrotum (01/19/18) --> Bilateral testicles have a normal appearance with intact flow by color Doppler. Irregular shaped heterogeneous echotexture abnormality in the posterior scrotum measuring excess of 5 cm. - Pt was started on IV Vanco (with pharmacy to dose) and Zosyn, IVF and pain meds PRN - Urology has signed off. - General surgery following and pt planned for surgical intervention today (2) Perirectal abscess ICD Codes: K61.1 - Rectal abscess Status: Acute Plan: -See above (3) DM2 (diabetes mellitus, type 2) ICD Codes: E11.9 - Type 2 diabetes mellitus without complications Status: Chronic Plan: - SSI increased to high dose on 01/21 - Levemir 5 units BID added on 01/21 - Hold outpt meds (4) Urinary retention ICD Codes: R33.9 - Retention of urine, unspecified Plan: - Johnson catheter - Pt started on Flomax Assessment and Plan Patient examined. Assessment and plan formulated with Harmony Jermyn PA-C. I agree with the above. perineal/perirectal abscess. drainage by dr Guevara. Problem Qualifiers (1) DM2 (diabetes mellitus, type 2): Harmony Fallon Jan 22, 2018 11:15 Constantino Castellon MD Jan 22, 2018 16:20
[2018-01-22] MEDS ORDERED: DEXAMETHASONE SOD PHOS 4 MG/ML VIAL IV ONE (12:00)
[2018-01-22] MEDS ORDERED: PROPOFOL 200 MG/20 ML AMP IV ONE (12:00)
[2018-01-22] MEDS ORDERED: LIDOCAINE HCL 1% PF 5 ML SYRINGE OTHER ONE (12:00)
[2018-01-22] MEDS ORDERED: ONDANSETRON HCL 4 MG/2 ML VIAL IV ONE (12:00)
[2018-01-22] MEDS ORDERED: METOPROLOL TARTRATE 5 MG/5 ML VIAL IV ONE (12:00)
[2018-01-22] MEDS ORDERED: BUPIVACAINE/EPINEPHRINE 0.25% 50 ML VIAL ONE (13:22)
--- NOTE | 2018-01-22 13:36 | EKG ---
Date Performed: 01/22/2018 Time Performed: 11:16:22 PTAGE: 62 years EKG: Sinus rhythm NONSPECIFIC T WAVE ABNORMALITY POOR R WAVE PROGRESSION ABNORMAL ECG PREVIOUS TRACING : 10/29/2006 14.27 No significant change from previous tracing noted. DOCTOR: Jimmy Solano Interpretating Date/Time 01/22/2018 13:35:18
--- NOTE | 2018-01-22 14:34 | PD.OP ---
cc: Robby Guevara MD Operative Report Date of Surgery: Jan 22, 2018 Preoperative Diagnosis: (1) Perirectal abscess Postoperative Diagnosis: (1) Perineal abscess (2) Perirectal abscess Procedure: Incision and drainage perineal abscess and perirectal abscess Anesthesia: GEN Surgeon: Robby Guevara Machinist Set Up(s): Tony ESPINOZA Operation and Findings: EBL: 20cc Operative findings: Large perineal abscess with large amt of pus drained. This is communicating with perirectal abscess. Procedure in detail: The patient was taken to the operating room placed in supine position. General anesthesia was induced. He was then placed in lithotomy. The perineum and perianal area was prepped and draped in usual sterile fashion. Surgical timeout was performed to verify correct patient procedure and site. There is purulent drainage from the previous incision in the right perianal area. There is a very large area of fluctuance in the perineum just posterior to the scrotum. The right david-anal incision was extended anteriorly and slightly more laterally over the abscess cavity. Using blunt finger dissection it was obvious there was a communication between the david-rectal abscess in the perineal abscess. A second incision was made in the right lateral aspect of the perineum. A copious amount of purulent fluid was drained from this perineal abscess. The entire abscess cavity through both incisions was copiously irrigated with 2 L using the pulse lavage. There was some necrotic tissue in the midline in the perineal cavity which was not debrided as it was quite deep and in the midline. Sterile packing with Betadine saline soaked Sarika was placed in both incisions. Sterile dressings were applied. The patient tolerated procedure well and was extubated and taken to PACU in stable condition. Robby Guevara MD Jan 22, 2018 14:34
[2018-01-22] MEDS: HYDROmorphone HCL PF 2 MG/ML VIAL IV PRN (15:28)
[2018-01-22] MEDS: SIMETHICONE 125 MG CHEWABLE TAB PO SCH ×2 (16:01→21:03)
[2018-01-22] MEDS: VANCOMYCIN INJ 1,750 MG in SODIUM CHLORID 0.9% 500 ML INJ 500 ML IV SCH (16:43)
[2018-01-22] MEDS ORDERED: DO NOT ADM ANY ANTICOAGULANT DRUGS PRN (17:00)
[2018-01-23] VITALS (11 sets, daily range): BP systolic 112–174; BP diastolic 59–80; PULSE 61–100; RESP 18–20; TEMP 96.8–99.2; O2SAT 92–98
[2018-01-23] MEDS: PIPERACIL-TAZO 3.375 GM PREMIX 50 ML IV SCH ×4 (00:04→23:46)
[2018-01-23] MEDS: chlorproMAZINE HCL 25 MG TAB PO PRN (00:13)
[2018-01-23] MEDS: SIMETHICONE 125 MG CHEWABLE TAB PO SCH ×3 (05:33→22:48)
[2018-01-23] MEDS: INSULIN ASPART SUPPLEMENTAL SCALE SQ SCH ×4 (08:00→20:07)
[2018-01-23] MEDS: PRAVASTATIN SOD 40 MG TAB PO SCH (08:24)
[2018-01-23] MEDS: DOCUSATE SODIUM 50 MG/SENNA 8.6 MG TAB PO SCH ×2 (08:24→19:59)
[2018-01-23] MEDS: TAMSULOSIN HCL 0.4 MG CAP PO SCH (08:24)
[2018-01-23] MEDS: INSULIN DETEMIR 100 UNITS/ML VIAL SQ SCH ×2 (08:27→20:07)
[2018-01-23] MEDS: PANTOPRAZOLE SODIUM 40 MG VIAL IV PUSH SCH ×2 (08:27→19:57)
[2018-01-23 08:57] LABS: AUTOMATED NEUTROPHIL # 13.8 TH/MM3 (1.8-7.7); BASOPHIL # 0.1 TH/MM3 (0-0.2); BASOPHIL % 0.3 % (0.0-2.0); EOSINOPHIL # 0.7 TH/MM3 (0-0.4); EOSINOPHIL % 3.9 % (0.0-4.0); HEMATOCRIT 42.2 % (39.0-51.0); HEMOGLOBIN 14.3 GM/DL (13.0-17.0); LYMPH % 6.8 % (9.0-44.0); LYMPHOCYTE # 1.2 TH/MM3 (1.0-4.8); MEAN CELL VOLUME 84.1 FL (80.0-100.0); MEAN CORPUSCULAR HEMOGLOBIN 28.6 PG (27.0-34.0); MEAN PLATELET VOLUME 8.5 FL (7.0-11.0); MONO % 7.7 % (0.0-8.0); MONOCYTE # 1.3 TH/MM3 (0-0.9); NEUT % 81.3 % (16.0-70.0); PLATELET COUNT 342 TH/MM3 (150-450); RED BLOOD COUNT 5.01 MIL/MM3 (4.50-5.90); RED CELL DISTRIBUTION WIDTH 13.9 % (11.6-17.2)
--- NOTE | 2018-01-23 09:41 | HHI.PR ---
Subjective Remarks Pt with less pain today BS this morning are improved Denies any N/V Afebrile Objective Vitals Vital Signs Date Time Temp Pulse Resp B/P (MAP) Pulse Ox O2 Delivery O2 Flow Rate FiO2 01/23/18 08:27 96.8 68 20 120/65 (83) 98 01/23/18 04:44 98.0 74 18 120/59 (79) 96 01/23/18 04:30 66 01/23/18 00:02 98.0 67 18 112/64 (80) 96 01/22/18 22:03 98.0 68 18 135/62 (86) 97 01/22/18 18:03 85 01/22/18 15:30 98.1 83 18 126/66 (86) 95 01/22/18 14:45 97.8 92 15 161/77 (105) 94 Nasal Cannula 2 01/22/18 14:30 93 16 142/77 (98) 93 01/22/18 14:15 89 17 131/65 (87) 93 01/22/18 14:00 97.6 92 15 153/81 (105) 98 Nasal Cannula 2 01/22/18 11:30 85 Result Diagram: 01/23/18 0820 01/22/18 0650 Other Results Laboratory Tests Test 01/22/18 06:50 01/23/18 08:20 White Blood Count 17.6 TH/MM3 17.0 TH/MM3 Red Blood Count 5.52 MIL/MM3 5.01 MIL/MM3 Hemoglobin 15.7 GM/DL 14.3 GM/DL Hematocrit 48.1 % 42.2 % Mean Corpuscular Volume 87.1 FL 84.1 FL Mean Corpuscular Hemoglobin 28.5 PG 28.6 PG Mean Corpuscular Hemoglobin Concent 32.7 % 34.0 % Red Cell Distribution Width 14.3 % 13.9 % Platelet Count 280 TH/MM3 342 TH/MM3 Mean Platelet Volume 8.2 FL 8.5 FL Neutrophils (%) (Auto) 84.0 % 81.3 % Lymphocytes (%) (Auto) 5.4 % 6.8 % Monocytes (%) (Auto) 7.3 % 7.7 % Eosinophils (%) (Auto) 3.1 % 3.9 % Basophils (%) (Auto) 0.2 % 0.3 % Neutrophils # (Auto) 14.8 TH/MM3 13.8 TH/MM3 Lymphocytes # (Auto) 1.0 TH/MM3 1.2 TH/MM3 Monocytes # (Auto) 1.3 TH/MM3 1.3 TH/MM3 Eosinophils # (Auto) 0.5 TH/MM3 0.7 TH/MM3 Basophils # (Auto) 0.0 TH/MM3 0.1 TH/MM3 CBC Comment AUTO DIFF DIFF FINAL Differential Total Cells Counted 100 Neutrophils % (Manual) 75 % Band Neutrophils % 8 % Lymphocytes % 5 % Monocytes % 3 % Eosinophils % 7 % Neutrophils # (Manual) 15.0 TH/MM3 Myelocytes 2 % Differential Comment FINAL DIFF MANUAL Toxic Granulation 1+ Platelet Estimate NORMAL Platelet Morphology Comment NORMAL Red Cell Morphology Comment NORMAL Blood Urea Nitrogen 18 MG/DL Creatinine 0.96 MG/DL Random Glucose 191 MG/DL Calcium Level 9.0 MG/DL Magnesium Level 1.9 MG/DL Sodium Level 135 MEQ/L Potassium Level 4.2 MEQ/L Chloride Level 99 MEQ/L Carbon Dioxide Level 24.4 MEQ/L Anion Gap 12 MEQ/L Estimat Glomerular Filtration Rate 79 ML/MIN Imaging Last 72 hours Impressions Scrotum Ultrasound 01/19/18 Signed Impressions: Service Date/Time: Friday, January 19, 2018 20:47 - CONCLUSION: 1. Bilateral testicles have a normal appearance with intact flow by color Doppler. 2. Irregular shaped heterogeneous echotexture abnormality in the posterior scrotum measuring excess of 5 cm. Inder Campuzano MD Abdomen/Pelvis CT 01/19/18 Signed Impressions: Service Date/Time: Friday, January 19, 2018 19:55 - CONCLUSION: 1. Induration of the subcutaneous soft tissues in the right perianal region without focal fluid collection. 2. Both collecting system and ureters are mildly dilated, but no calcified stones seen on either side. 3. Distended urinary bladder, similar to prior CT in 2000. Inder Campuzano MD Objective Remarks GENERAL: This is a well-nourished, well-developed patient, in no apparent distress. CARDIO: Regular RESP: CTA bilaterally. ABD: +BS, soft, non-tender, nondistended. EXT: No edema. A/P Problem List: (1) Perirectal abscess ICD Codes: K61.1 - Rectal abscess Status: Acute Plan: - 62 y/o WM with DM who presented to the ED for perirectal abscess and pain/ swelling in scrotum. - Pt was first treated with Keflex on 01/13/18 for david-rectal abscess, then had I&D performed by Dr Grubbs on 01/15/18 and was reportedly placed on Bactrim for last few days. Cultures of abscess revealed group B Strep. He developed low grade fevers on 01/19 and complained of more swelling in scrotum with difficulty having BMs over the previous 2 days. - Was seen in gen surgery office on 01/19 and directed to ER for possible progression of abscess with possible scrotal abscess as well. - CT abd/pelvis (01/19/18) --> Induration of the subcutaneous soft tissues in the right perianal region without focal fluid collection. Both collecting system and ureters are mildly dilated, but no calcified stones seen on either side. Distended urinary bladder, similar to prior CT in 2000. - U/S scrotum (01/19/18) --> Bilateral testicles have a normal appearance with intact flow by color Doppler. Irregular shaped heterogeneous echotexture abnormality in the posterior scrotum measuring excess of 5 cm. - Pt was started on IV Vanco (with pharmacy to dose) and Zosyn, IVF and pain meds PRN - Urology has signed off. - General surgery following and pt planned underwent Incision and drainage perineal abscess and perirectal abscess on 01/22/[address] Guevara the procedure revealed large perineal abscess with large amt of pus drained which was communicating with perirectal abscess. (2) DM2 (diabetes mellitus, type 2) ICD Codes: E11.9 - Type 2 diabetes mellitus without complications Status: Chronic Plan: - SSI increased to high dose on 01/21 - Levemir 5 units BID added on 01/21 - Hold outpt meds (3) Urinary retention ICD Codes: R33.9 - Retention of urine, unspecified Plan: - Johnson catheter - Pt started on Flomax Assessment and Plan Patient examined. Assessment and plan formulated with Harmony Fallon PA-C. I agree with the above. perineum and perirectal abscess s/p i/d. packed by surg this AM. percocet and dilaudid pain meds. had bm last night. Problem Qualifiers (1) DM2 (diabetes mellitus, type 2): Harmony Fallon Jan 23, 2018 09:41 Constantino Castellon MD Jan 23, 2018 12:17
[2018-01-23] MEDS: HYDROmorphone HCL PF 2 MG/ML VIAL IV PRN ×4 (09:54→23:49)
--- NOTE | 2018-01-23 10:37 | HHI.PR ---
Subjective Subjective Notes In some pain but feels less pressure in perineum. Had BM last night. WBC remains elevated. Objective Vitals/I&O Vital Signs Date Time Temp Pulse Resp B/P (MAP) Pulse Ox O2 Delivery O2 Flow Rate FiO2 01/23/18 08:27 96.8 68 20 120/65 (83) 98 01/22/18 14:45 Nasal Cannula 2 Labs Laboratory Tests Test 01/23/18 08:20 White Blood Count 17.0 Red Blood Count 5.01 Hemoglobin 14.3 Hematocrit 42.2 Mean Corpuscular Volume 84.1 Mean Corpuscular Hemoglobin 28.6 Mean Corpuscular Hemoglobin Concent 34.0 Red Cell Distribution Width 13.9 Platelet Count 342 Mean Platelet Volume 8.5 Neutrophils (%) (Auto) 81.3 Lymphocytes (%) (Auto) 6.8 Monocytes (%) (Auto) 7.7 Eosinophils (%) (Auto) 3.9 Basophils (%) (Auto) 0.3 Neutrophils # (Auto) 13.8 Lymphocytes # (Auto) 1.2 Monocytes # (Auto) 1.3 Eosinophils # (Auto) 0.7 Basophils # (Auto) 0.1 CBC Comment DIFF FINAL Differential Comment Date/Time Source Procedure Growth Status 01/19/18 17:40 Blood Peripheral Aerobic Blood Culture - Preliminary NO GROWTH IN 3 DAYS Resulted 01/19/18 17:40 Blood Peripheral Anaerobic Blood Culture - Preliminary NO GROWTH IN 3 DAYS Resulted 01/22/18 13:33 Wound Groin Gram Stain - Final Resulted 01/22/18 13:33 Wound Groin Wound Culture Pending Resulted Narrative Exam No distress Perineal and perirectal dressings changed at bedside- no purulent drainage, persistent induration A/P Assessment and Plan POD 1 s/p I&D perineal abscess, repeat drainage of perirectal abscess. Large amt of pus drained. Daily dressing changes. Cont IV antibiotics. Needs to go to med surg floor and I discussed this with bed placement. Possible need for repeat debridement early next week. Will see how the wound looks. Robby Guevara MD Jan 23, 2018 10:37
[2018-01-23] MEDS ORDERED: HYDROmorphone HCL PF 2 MG/ML VIAL IV PUSH ONE (11:45)
[2018-01-23] MEDS: oxyCODONE/ACETAMINOPHEN 10 MG/325 MG TAB PO PRN ×3 (13:54→22:48)
[2018-01-23] MEDS: VANCOMYCIN INJ 1,750 MG in SODIUM CHLORID 0.9% 500 ML INJ 500 ML IV SCH (16:12)
[2018-01-24] VITALS (7 sets, daily range): BP systolic 112–152; BP diastolic 59–73; PULSE 70–84; RESP 18–20; TEMP 97.7–98.7; O2SAT 93–98
[2018-01-24 05:08] LABS: CREATININE 1.19 MG/DL (0.60-1.30)
[2018-01-24] MEDS: oxyCODONE/ACETAMINOPHEN 10 MG/325 MG TAB PO PRN ×2 (06:16→11:29)
[2018-01-24] MEDS: SIMETHICONE 125 MG CHEWABLE TAB PO SCH ×3 (06:17→21:30)
[2018-01-24] MEDS: INSULIN ASPART SUPPLEMENTAL SCALE SQ SCH ×4 (08:00→20:21)
[2018-01-24] MEDS: HYDROmorphone HCL PF 2 MG/ML VIAL IV PRN ×3 (08:20→21:28)
[2018-01-24] MEDS: INSULIN DETEMIR 100 UNITS/ML VIAL SQ SCH ×2 (09:00→20:21)
[2018-01-24] MEDS: PIPERACIL-TAZO 3.375 GM PREMIX 50 ML IV SCH ×3 (09:42→23:14)
[2018-01-24] MEDS: TAMSULOSIN HCL 0.4 MG CAP PO SCH (09:44)
[2018-01-24] MEDS: PANTOPRAZOLE SODIUM 40 MG VIAL IV PUSH SCH ×2 (09:44→20:18)
[2018-01-24] MEDS: DOCUSATE SODIUM 50 MG/SENNA 8.6 MG TAB PO SCH ×2 (09:44→20:18)
[2018-01-24] MEDS: PRAVASTATIN SOD 40 MG TAB PO SCH (09:44)
--- NOTE | 2018-01-24 13:43 | HHI.PR ---
Subjective Remarks Pt still having pain when he is not getting the Percocet every 4 hours. Afebrile No nausea or vomiting Objective Vitals Vital Signs Date Time Temp Pulse Resp B/P (MAP) Pulse Ox O2 Delivery O2 Flow Rate FiO2 01/24/18 12:00 98.5 77 20 135/68 (90) 97 01/24/18 08:00 97.7 70 20 120/61 (80) 96 01/24/18 04:00 98.6 73 20 116/66 (83) 98 01/24/18 00:00 98.4 75 20 112/59 (76) 93 01/23/18 20:00 98.2 70 20 134/68 (90) 92 01/23/18 19:47 85 01/23/18 16:00 98.7 80 18 130/69 (89) 94 () 01/23/18 14:00 97.5 71 18 146/73 (97) 95 01/24/18 01/24/18 01/25/18 15:00 23:00 07:00 Intake Total 240 ml Balance 240 ml Intake Oral 240 ml Result Diagram: 01/23/18 0820 01/24/18 0415 Other Results Laboratory Tests Test 01/23/18 08:20 01/24/18 04:15 White Blood Count 17.0 TH/MM3 Red Blood Count 5.01 MIL/MM3 Hemoglobin 14.3 GM/DL Hematocrit 42.2 % Mean Corpuscular Volume 84.1 FL Mean Corpuscular Hemoglobin 28.6 PG Mean Corpuscular Hemoglobin Concent 34.0 % Red Cell Distribution Width 13.9 % Platelet Count 342 TH/MM3 Mean Platelet Volume 8.5 FL Neutrophils (%) (Auto) 81.3 % Lymphocytes (%) (Auto) 6.8 % Monocytes (%) (Auto) 7.7 % Eosinophils (%) (Auto) 3.9 % Basophils (%) (Auto) 0.3 % Neutrophils # (Auto) 13.8 TH/MM3 Lymphocytes # (Auto) 1.2 TH/MM3 Monocytes # (Auto) 1.3 TH/MM3 Eosinophils # (Auto) 0.7 TH/MM3 Basophils # (Auto) 0.1 TH/MM3 CBC Comment DIFF FINAL Differential Comment Creatinine 1.19 MG/DL Estimat Glomerular Filtration Rate 62 ML/MIN Imaging Last 72 hours Impressions Scrotum Ultrasound 01/19/18 0000 Signed Impressions: Service Date/Time: Friday, January 19, 2018 20:47 - CONCLUSION: 1. Bilateral testicles have a normal appearance with intact flow by color Doppler. 2. Irregular shaped heterogeneous echotexture abnormality in the posterior scrotum measuring excess of 5 cm. Inder Campuzano MD Abdomen/Pelvis CT 01/19/18 0000 Signed Impressions: Service Date/Time: Friday, January 19, 2018 19:55 - CONCLUSION: 1. Induration of the subcutaneous soft tissues in the right perianal region without focal fluid collection. 2. Both collecting system and ureters are mildly dilated, but no calcified stones seen on either side. 3. Distended urinary bladder, similar to prior CT in 2000. Inder Campuzano MD Objective Remarks GENERAL: This is a well-nourished, well-developed patient, in no apparent distress. CARDIO: Regular RESP: CTA bilaterally. ABD: +BS, soft, non-tender, nondistended. EXT: No edema. A/P Problem List: (1) Perirectal abscess ICD Codes: K61.1 - Rectal abscess Status: Acute Plan: - 62 y/o WM with DM who presented to the ED for perirectal abscess and pain/ swelling in scrotum. - Pt was first treated with Keflex on 01/13/18 for david-rectal abscess, then had I&D performed by Dr Grubbs on 01/15/18 and was reportedly placed on Bactrim for last few days. Cultures of abscess revealed group B Strep. He developed low grade fevers on 01/19 and complained of more swelling in scrotum with difficulty having BMs over the previous 2 days. - Was seen in gen surgery office on 01/19 and directed to ER for possible progression of abscess with possible scrotal abscess as well. - CT abd/pelvis (01/19/18) --> Induration of the subcutaneous soft tissues in the right perianal region without focal fluid collection. Both collecting system and ureters are mildly dilated, but no calcified stones seen on either side. Distended urinary bladder, similar to prior CT in 2000. - U/S scrotum (01/19/18) --> Bilateral testicles have a normal appearance with intact flow by color Doppler. Irregular shaped heterogeneous echotexture abnormality in the posterior scrotum measuring excess of 5 cm. - Pt was started on IV Vanco (with pharmacy to dose) and Zosyn, IVF and pain meds PRN - Urology has signed off. - General surgery following and pt underwent Incision and drainage perineal abscess and perirectal abscess on 01/22/[address] Guevara the procedure revealed large perineal abscess with large amt of pus drained which was communicating with perirectal abscess. - Dressing changes per GS - Possible need for return to OR early next week (2) DM2 (diabetes mellitus, type 2) ICD Codes: E11.9 - Type 2 diabetes mellitus without complications Status: Chronic Plan: - SSI increased to high dose on 01/21 - Levemir 10 units BID, titrate up as needed - Hold outpt meds (3) Urinary retention ICD Codes: R33.9 - Retention of urine, unspecified Plan: - Johnson catheter - Pt started on Flomax Assessment and Plan Patient examined. Assessment and plan formulated with Harmony Fallon PA-C. I agree with the above. peroneal and perirectal abscess. s/p ID.might need more surgery. wait for dr Guevara reccs. abx. pain meds. Problem Qualifiers (1) DM2 (diabetes mellitus, type 2): Harmony Fallon Jan 24, 2018 13:43 Constantino Castellon MD Jan 24, 2018 14:24
--- NOTE | 2018-01-24 14:17 | HHI.PR ---
Subjective Subjective Notes No complaints. Has some burning in area of I&D. Objective Vitals/I&O Vital Signs Date Time Temp Pulse Resp B/P (MAP) Pulse Ox O2 Delivery O2 Flow Rate FiO2 01/24/18 12:00 98.5 77 20 135/68 (90) 97 01/22/18 14:45 Nasal Cannula 2 Labs Laboratory Tests Test 01/24/18 04:15 Creatinine 1.19 Estimat Glomerular Filtration Rate 62 Date/Time Source Procedure Growth Status 01/19/18 17:40 Blood Peripheral Aerobic Blood Culture - Final NO GROWTH IN 5 DAYS Complete 01/19/18 17:40 Blood Peripheral Anaerobic Blood Culture - Final NO GROWTH IN 5 DAYS Complete 01/22/18 13:33 Wound Groin Gram Stain - Final Resulted 01/22/18 13:33 Wound Groin Wound Culture - Preliminary IMMATURE GROWTH - REINCUBATE Resulted Narrative Exam No distress Perineal and perirectal dressings removed- purulence on packing but no drainage A/P Assessment and Plan POD 2 s/p I&D perineal abscess, repeat drainage of perirectal abscess. Large amt of pus drained. Shower and then nursing will pack incisions. Daily dressing changes. Cont IV antibiotics. Robby Guevara MD Jan 24, 2018 14:17
[2018-01-24] MEDS: oxyCODONE/ACETAMINOPHEN 10 MG/325 MG TAB PO SCH ×3 (15:34→23:14)
[2018-01-24] MEDS ORDERED: PHARMACY ORDERED LAB ONE (15:45)
[2018-01-24] MEDS: VANCOMYCIN INJ 1,750 MG in SODIUM CHLORID 0.9% 500 ML INJ 500 ML IV SCH (16:00)
[2018-01-24] MEDS: VANCOMYCIN 1,000 MG/NS 250 ML IV SCH ×2 (21:28)
[2018-01-25] VITALS (9 sets, daily range): BP systolic 106–148; BP diastolic 58–72; PULSE 64–84; RESP 18–20; TEMP 97.7–98.4; O2SAT 93–97
[2018-01-25] MEDS: oxyCODONE/ACETAMINOPHEN 10 MG/325 MG TAB PO SCH ×3 (03:52→12:58)
[2018-01-25] MEDS: HYDROmorphone HCL PF 2 MG/ML VIAL IV PRN ×4 (04:59→22:10)
[2018-01-25] MEDS: SIMETHICONE 125 MG CHEWABLE TAB PO SCH ×3 (04:59→20:37)
[2018-01-25 07:47] LABS: AUTOMATED NEUTROPHIL # 9.9 TH/MM3 (1.8-7.7); BASOPHIL # 0.1 TH/MM3 (0-0.2); BASOPHIL % 0.5 % (0.0-2.0); EOSINOPHIL # 0.5 TH/MM3 (0-0.4); HEMATOCRIT 42.4 % (39.0-51.0); HEMOGLOBIN 14.3 GM/DL (13.0-17.0); LYMPH % 11.1 % (9.0-44.0); LYMPHOCYTE # 1.5 TH/MM3 (1.0-4.8); MEAN CELL VOLUME 84.9 FL (80.0-100.0); MEAN CORPUSCULAR HEMOGLOBIN 28.5 PG (27.0-34.0); MEAN CORPUSCULAR HGB CONC 33.6 % (32.0-36.0); MEAN PLATELET VOLUME 8.1 FL (7.0-11.0); MONO % 10.3 % (0.0-8.0); MONOCYTE # 1.4 TH/MM3 (0-0.9); NEUT % 74.1 % (16.0-70.0); PLATELET COUNT 370 TH/MM3 (150-450); WHITE BLOOD COUNT 13.4 TH/MM3 (4.0-11.0)
[2018-01-25] MEDS: INSULIN ASPART SUPPLEMENTAL SCALE SQ SCH ×4 (08:00→21:03)
[2018-01-25 08:06] LABS: BICARBONATE 27.8 MEQ/L (21.0-32.0); CALCIUM 8.9 MG/DL (8.5-10.1); CREATININE 1.34 MG/DL (0.60-1.30); MAGNESIUM 1.9 MG/DL (1.5-2.5)
[2018-01-25] MEDS: INSULIN DETEMIR 100 UNITS/ML VIAL SQ SCH ×2 (09:00→20:30)
[2018-01-25] MEDS: PIPERACIL-TAZO 3.375 GM PREMIX 50 ML IV SCH ×3 (09:11→23:21)
[2018-01-25] MEDS: PRAVASTATIN SOD 40 MG TAB PO SCH (09:21)
[2018-01-25] MEDS: PANTOPRAZOLE SODIUM 40 MG VIAL IV PUSH SCH ×2 (09:21→20:29)
[2018-01-25] MEDS: TAMSULOSIN HCL 0.4 MG CAP PO SCH (09:21)
[2018-01-25] MEDS: DOCUSATE SODIUM 50 MG/SENNA 8.6 MG TAB PO SCH ×2 (09:21→20:29)
--- NOTE | 2018-01-25 09:23 | HHI.PR ---
Subjective Subjective Notes Pain is improving. Objective Vitals/I&O Vital Signs Date Time Temp Pulse Resp B/P (MAP) Pulse Ox O2 Delivery O2 Flow Rate FiO2 01/25/18 08:00 98.0 67 19 124/70 (88) 96 01/22/18 14:45 Nasal Cannula 2 Labs Laboratory Tests Test 01/24/18 18:10 01/25/18 07:23 Vancomycin Level Trough 7.4 White Blood Count 13.4 Red Blood Count 5.00 Hemoglobin 14.3 Hematocrit 42.4 Mean Corpuscular Volume 84.9 Mean Corpuscular Hemoglobin 28.5 Mean Corpuscular Hemoglobin Concent 33.6 Red Cell Distribution Width 14.0 Platelet Count 370 Mean Platelet Volume 8.1 Neutrophils (%) (Auto) 74.1 Lymphocytes (%) (Auto) 11.1 Monocytes (%) (Auto) 10.3 Eosinophils (%) (Auto) 4.0 Basophils (%) (Auto) 0.5 Neutrophils # (Auto) 9.9 Lymphocytes # (Auto) 1.5 Monocytes # (Auto) 1.4 Eosinophils # (Auto) 0.5 Basophils # (Auto) 0.1 CBC Comment AUTO DIFF Blood Urea Nitrogen 5 Creatinine 1.34 Random Glucose 248 Calcium Level 8.9 Magnesium Level 1.9 Sodium Level 134 Potassium Level 4.1 Chloride Level 98 Carbon Dioxide Level 27.8 Anion Gap 8 Estimat Glomerular Filtration Rate 54 Date/Time Source Procedure Growth Status 01/19/18 17:40 Blood Peripheral Aerobic Blood Culture - Final NO GROWTH IN 5 DAYS Complete 01/19/18 17:40 Blood Peripheral Anaerobic Blood Culture - Final NO GROWTH IN 5 DAYS Complete 01/22/18 13:33 Wound Groin Gram Stain - Final Complete 01/22/18 13:33 Wound Groin Wound Culture - Final Complete Narrative Exam No distress Perineal and perirectal packing removed- still some purulence mainly from perineal incision. no erythema A/P Assessment and Plan POD 3 s/p I&D perineal abscess, repeat drainage of perirectal abscess. Large amt of pus drained. Improving but still some purulent drainage. Stop wound packing. Warm water soak in basin at least three times daily. Robby Guevara MD Jan 25, 2018 09:23
[2018-01-25 09:37] LABS: BANDS 12 % (0-6); LYMPHOCYTES 13 % (9-44); MONOCYTES 10 % (0-8); MYELOCYTES 6 % (0-0); NEUTROPHIL # MANUAL DIFF 10.1 TH/MM3 (1.8-7.7); POLYS (SEG NEUTROPHILS) 57 % (16-70); TOXIC GRANULATION 2+ (NORMAL); TOXIC VACUOLATION PRESENT (NONE SEEN)
[2018-01-25] MEDS: VANCOMYCIN 1,000 MG/NS 250 ML IV SCH ×4 (10:50→21:04)
--- NOTE | 2018-01-25 13:18 | HHI.PR ---
Subjective Remarks Pt reports that the pain is somewhat better controlled Pt seen by Dr. Guevara this morning and packing removed Objective Vitals Vital Signs Date Time Temp Pulse Resp B/P (MAP) Pulse Ox O2 Delivery O2 Flow Rate FiO2 01/25/18 12:00 97.7 70 20 115/65 (82) 97 01/25/18 08:00 98.0 67 19 124/70 (88) 96 01/25/18 04:23 98.1 67 18 110/61 (77) 93 01/25/18 03:56 67 01/25/18 00:35 98.4 64 18 106/58 (74) 95 01/25/18 00:00 71 01/24/18 20:38 97.8 84 18 135/65 (88) 95 01/24/18 20:00 83 01/24/18 16:00 98.7 77 19 152/73 (99) 96 01/25/18 01/25/18 01/26/18 15:00 23:00 07:00 Intake Total 120 ml Balance 120 ml Intake Oral 120 ml Result Diagram: 01/25/1823 01/25/18 0723 Other Results Laboratory Tests Test 01/24/18 04:15 01/24/18 18:10 01/25/18 07:23 Creatinine 1.19 MG/DL 1.34 MG/DL Estimat Glomerular Filtration Rate 62 ML/MIN 54 ML/MIN Vancomycin Level Trough 7.4 MCG/ML White Blood Count 13.4 TH/MM3 Red Blood Count 5.00 MIL/MM3 Hemoglobin 14.3 GM/DL Hematocrit 42.4 % Mean Corpuscular Volume 84.9 FL Mean Corpuscular Hemoglobin 28.5 PG Mean Corpuscular Hemoglobin Concent 33.6 % Red Cell Distribution Width 14.0 % Platelet Count 370 TH/MM3 Mean Platelet Volume 8.1 FL Neutrophils (%) (Auto) 74.1 % Lymphocytes (%) (Auto) 11.1 % Monocytes (%) (Auto) 10.3 % Eosinophils (%) (Auto) 4.0 % Basophils (%) (Auto) 0.5 % Neutrophils # (Auto) 9.9 TH/MM3 Lymphocytes # (Auto) 1.5 TH/MM3 Monocytes # (Auto) 1.4 TH/MM3 Eosinophils # (Auto) 0.5 TH/MM3 Basophils # (Auto) 0.1 TH/MM3 CBC Comment AUTO DIFF Differential Total Cells Counted 100 Neutrophils % (Manual) 57 % Band Neutrophils % 12 % Lymphocytes % 13 % Monocytes % 10 % Eosinophils % 2 % Neutrophils # (Manual) 10.1 TH/MM3 Myelocytes 6 % Differential Comment FINAL DIFF MANUAL Toxic Granulation 2+ Toxic Vacuolation PRESENT Platelet Estimate NORMAL Platelet Morphology Comment NORMAL Blood Urea Nitrogen 5 MG/DL Random Glucose 248 MG/DL Calcium Level 8.9 MG/DL Magnesium Level 1.9 MG/DL Sodium Level 134 MEQ/L Potassium Level 4.1 MEQ/L Chloride Level 98 MEQ/L Carbon Dioxide Level 27.8 MEQ/L Anion Gap 8 MEQ/L Imaging Last 72 hours Impressions Scrotum Ultrasound 01/19/18 0000 Signed Impressions: Service Date/Time: Friday, January 19, 2018 20:47 - CONCLUSION: 1. Bilateral testicles have a normal appearance with intact flow by color Doppler. 2. Irregular shaped heterogeneous echotexture abnormality in the posterior scrotum measuring excess of 5 cm. Inder Campuzano MD Abdomen/Pelvis CT 01/19/18 0000 Signed Impressions: Service Date/Time: Friday, January 19, 2018 19:55 - CONCLUSION: 1. Induration of the subcutaneous soft tissues in the right perianal region without focal fluid collection. 2. Both collecting system and ureters are mildly dilated, but no calcified stones seen on either side. 3. Distended urinary bladder, similar to prior CT in 2000. Inder Campuzano MD Objective Remarks GENERAL: This is a well-nourished, well-developed patient, in no apparent distress. CARDIO: Regular RESP: CTA bilaterally. ABD: +BS, soft, non-tender, nondistended. EXT: No edema. A/P Problem List: (1) Perirectal abscess ICD Codes: K61.1 - Rectal abscess Status: Acute Plan: - 62 y/o WM with DM who presented to the ED for perirectal abscess and pain/ swelling in scrotum. - Pt was first treated with Keflex on 01/13/18 for david-rectal abscess, then had I&D performed by Dr Grubbs on 01/15/18 and was reportedly placed on Bactrim for last few days. Cultures of abscess revealed group B Strep. He developed low grade fevers on 01/19 and complained of more swelling in scrotum with difficulty having BMs over the previous 2 days. - Was seen in gen surgery office on 01/19 and directed to ER for possible progression of abscess with possible scrotal abscess as well. - CT abd/pelvis (01/19/18) --> Induration of the subcutaneous soft tissues in the right perianal region without focal fluid collection. Both collecting system and ureters are mildly dilated, but no calcified stones seen on either side. Distended urinary bladder, similar to prior CT in 2000. - U/S scrotum (01/19/18) --> Bilateral testicles have a normal appearance with intact flow by color Doppler. Irregular shaped heterogeneous echotexture abnormality in the posterior scrotum measuring excess of 5 cm. - Pt was started on IV Vanco (with pharmacy to dose) and Zosyn, IVF and pain meds PRN - Urology has signed off. - General surgery following and pt underwent Incision and drainage perineal abscess and perirectal abscess on 01/22/[address] Guevara the procedure revealed large perineal abscess with large amt of pus drained which was communicating with perirectal abscess. - GS recommending leaving packing out and sitz baths - Possible need for return to OR next week, Dr. Guevara to follow wound (2) DM2 (diabetes mellitus, type 2) ICD Codes: E11.9 - Type 2 diabetes mellitus without complications Status: Chronic Plan: - SSI increased to high dose on 01/21 - Levemir 10 units BID, titrate up to 15 units BID - Hold outpt meds (3) Urinary retention ICD Codes: R33.9 - Retention of urine, unspecified Plan: - Johnson catheter - Pt started on Flomax Assessment and Plan Patient examined. Assessment and plan formulated with Harmony Fallon PA-C. I agree with the above. peroneal/perirectal abscess s/p drainage. wound care per Dr Guevara cont abx wound care. d/c probably in 2-3 days. Problem Qualifiers (1) DM2 (diabetes mellitus, type 2): Harmony Fallon Jan 25, 2018 13:18 Constantino Castellon MD Jan 25, 2018 14:32
[2018-01-25] MEDS: oxyCODONE/ACETAMINOPHEN 10 MG/325 MG TAB PO PRN ×2 (17:22→21:24)
[2018-01-25] MEDS ORDERED: PHARMACY ORDERED LAB ONE (20:45)
[2018-01-26] VITALS (8 sets, daily range): BP systolic 100–150; BP diastolic 57–78; PULSE 64–100; RESP 18–19; TEMP 98.5–99.1; O2SAT 90–99
[2018-01-26] MEDS: oxyCODONE/ACETAMINOPHEN 10 MG/325 MG TAB PO PRN ×5 (04:04→23:00)
[2018-01-26] MEDS: HYDROmorphone HCL PF 2 MG/ML VIAL IV PRN ×5 (05:05→23:59)
[2018-01-26] MEDS: SIMETHICONE 125 MG CHEWABLE TAB PO SCH ×3 (05:05→21:10)
[2018-01-26] MEDS: INSULIN ASPART SUPPLEMENTAL SCALE SQ SCH ×4 (09:28→21:00)
[2018-01-26] MEDS: PIPERACIL-TAZO 3.375 GM PREMIX 50 ML IV SCH ×3 (09:28→23:00)
[2018-01-26] MEDS: DOCUSATE SODIUM 50 MG/SENNA 8.6 MG TAB PO SCH ×2 (09:29→21:29)
[2018-01-26] MEDS: INSULIN DETEMIR 100 UNITS/ML VIAL SQ SCH ×2 (09:29→21:00)
[2018-01-26] MEDS: PANTOPRAZOLE SODIUM 40 MG VIAL IV PUSH SCH ×2 (09:30→21:08)
[2018-01-26] MEDS: PRAVASTATIN SOD 40 MG TAB PO SCH (09:30)
[2018-01-26] MEDS: TAMSULOSIN HCL 0.4 MG CAP PO SCH (09:30)
[2018-01-26] MEDS: MAGNESIUM HYDROXIDE SUSP 30 ML CUP PO PRN (09:36)
[2018-01-26] MEDS: VANCOMYCIN 1,500 MG/NS 500 ML IV SCH ×2 (12:35)
--- NOTE | 2018-01-26 13:39 | HHI.PR ---
Subjective Remarks Pt reports that his pain is better controlled today Afebrile Pt has been ambulating in the room without difficulty Nurse reports that the pt has continued to have a lot of reddish/brown drainage from the surgical wounds Objective Vitals Vital Signs Date Time Temp Pulse Resp B/P (MAP) Pulse Ox O2 Delivery O2 Flow Rate FiO2 01/26/18 12:00 98.5 82 19 118/64 (82) 97 01/26/18 08:00 98.6 75 19 119/69 (86) 96 01/26/18 05:42 98.9 72 18 106/59 (75) 93 01/26/18 04:14 64 01/26/18 00:11 66 01/26/18 00:00 98.7 87 18 100/57 (71) 90 01/25/18 20:03 76 01/25/18 20:00 97.7 84 18 120/72 (88) 95 01/25/18 16:00 98.1 71 19 109/59 (76) 95 Result Diagram: 01/25/18 0723 01/25/18722 Other Results Laboratory Tests Test 01/24/18 18:10 01/25/18 07:23 01/25/18 20:45 Vancomycin Level Trough 7.4 MCG/ML 9.5 MCG/ML White Blood Count 13.4 TH/MM3 Red Blood Count 5.00 MIL/MM3 Hemoglobin 14.3 GM/DL Hematocrit 42.4 % Mean Corpuscular Volume 84.9 FL Mean Corpuscular Hemoglobin 28.5 PG Mean Corpuscular Hemoglobin Concent 33.6 % Red Cell Distribution Width 14.0 % Platelet Count 370 TH/MM3 Mean Platelet Volume 8.1 FL Neutrophils (%) (Auto) 74.1 % Lymphocytes (%) (Auto) 11.1 % Monocytes (%) (Auto) 10.3 % Eosinophils (%) (Auto) 4.0 % Basophils (%) (Auto) 0.5 % Neutrophils # (Auto) 9.9 TH/MM3 Lymphocytes # (Auto) 1.5 TH/MM3 Monocytes # (Auto) 1.4 TH/MM3 Eosinophils # (Auto) 0.5 TH/MM3 Basophils # (Auto) 0.1 TH/MM3 CBC Comment AUTO DIFF Differential Total Cells Counted 100 Neutrophils % (Manual) 57 % Band Neutrophils % 12 % Lymphocytes % 13 % Monocytes % 10 % Eosinophils % 2 % Neutrophils # (Manual) 10.1 TH/MM3 Myelocytes 6 % Differential Comment FINAL DIFF MANUAL Toxic Granulation 2+ Toxic Vacuolation PRESENT Platelet Estimate NORMAL Platelet Morphology Comment NORMAL Blood Urea Nitrogen 5 MG/DL Creatinine 1.34 MG/DL Random Glucose 248 MG/DL Calcium Level 8.9 MG/DL Magnesium Level 1.9 MG/DL Sodium Level 134 MEQ/L Potassium Level 4.1 MEQ/L Chloride Level 98 MEQ/L Carbon Dioxide Level 27.8 MEQ/L Anion Gap 8 MEQ/L Estimat Glomerular Filtration Rate 54 ML/MIN Imaging Last 72 hours Impressions Scrotum Ultrasound 01/19/18 0000 Signed Impressions: Service Date/Time: Friday, January 19, 2018 20:47 - CONCLUSION: 1. Bilateral testicles have a normal appearance with intact flow by color Doppler. 2. Irregular shaped heterogeneous echotexture abnormality in the posterior scrotum measuring excess of 5 cm. Inder Campuzano MD Abdomen/Pelvis CT 01/19/18 0000 Signed Impressions: Service Date/Time: Friday, January 19, 2018 19:55 - CONCLUSION: 1. Induration of the subcutaneous soft tissues in the right perianal region without focal fluid collection. 2. Both collecting system and ureters are mildly dilated, but no calcified stones seen on either side. 3. Distended urinary bladder, similar to prior CT in 2000. Inder Campuzano MD Objective Remarks GENERAL: This is a well-nourished, well-developed patient, in no apparent distress. CARDIO: Regular RESP: CTA bilaterally. ABD: +BS, soft, non-tender, nondistended. : two incision, one is perirectal and the other is perineal, perineal incision with brown/red purulent drainage less pain and erythema of the surrounding skin areas EXT: No edema. A/P Problem List: (1) Perirectal abscess ICD Codes: K61.1 - Rectal abscess Status: Acute Plan: - 62 y/o WM with DM who presented to the ED for perirectal abscess and pain/ swelling in scrotum. - Pt was first treated with Keflex on 01/13/18 for david-rectal abscess, then had I&D performed by Dr Grubbs on 01/15/18 and was reportedly placed on Bactrim for last few days. Cultures of abscess revealed group B Strep. He developed low grade fevers on 3/5 and complained of more swelling in scrotum with difficulty having BMs over the previous 2 days. - Was seen in gen surgery office on 01/19 and directed to ER for possible progression of abscess with possible scrotal abscess as well. - CT abd/pelvis (01/19/18) --> Induration of the subcutaneous soft tissues in the right perianal region without focal fluid collection. Both collecting system and ureters are mildly dilated, but no calcified stones seen on either side. Distended urinary bladder, similar to prior CT in 2000. - U/S scrotum (01/19/18) --> Bilateral testicles have a normal appearance with intact flow by color Doppler. Irregular shaped heterogeneous echotexture abnormality in the posterior scrotum measuring excess of 5 cm. - Pt was started on IV Vanco (with pharmacy to dose) and Zosyn, IVF and pain meds PRN - Urology has signed off. - General surgery following and pt underwent Incision and drainage perineal abscess and perirectal abscess on 01/22/[address] Guevara the procedure revealed large perineal abscess with large amt of pus drained which was communicating with perirectal abscess. - GS recommending leaving packing out and sitz baths - Possible need for return to OR next week, Dr. Guevara to follow wound on Friday, 01/28 (2) DM2 (diabetes mellitus, type 2) ICD Codes: E11.9 - Type 2 diabetes mellitus without complications Status: Chronic Plan: - BS are somewhat better controlled on higher Levemir dose - SSI increased to high dose on 01/21 - Levemir 15 units BID - Hold outpt meds (3) Urinary retention ICD Codes: R33.9 - Retention of urine, unspecified Plan: - Johnson catheter removed - Pt started on Flomax Assessment and Plan Patient examined. Assessment and plan formulated with Harmony Fallon PA-C. I agree with the above. Surgical wound at perirectal abscess and posterior scrotal abscess examined. Brownish drainage from scrotal abscess. some surrounding induration at both sites. Pt's pain is controlled. Continue IV antibiotics Vancomycin and Zosyn. Encourage ambulation. Await surgical reevaluation 01/28/18 Problem Qualifiers (1) DM2 (diabetes mellitus, type 2): Harmony Fallon Jan 26, 2018 13:39 Maxx Woo DO Jan 26, 2018 14:43
[2018-01-26] MEDS: SODIUM CHLORIDE 0.9% FLUSH 10 ML FLUSH IV FLUSH PRN (21:06)
[2018-01-27] VITALS: BP 120/71; PULSE 82; RESP 18; TEMP 98.9; O2SAT 94
[2018-01-27] MEDS: VANCOMYCIN 1,500 MG/NS 500 ML IV SCH ×4 (05:44→23:52)
[2018-01-27] MEDS: SIMETHICONE 125 MG CHEWABLE TAB PO SCH ×3 (05:44→20:45)
[2018-01-27] MEDS: oxyCODONE/ACETAMINOPHEN 10 MG/325 MG TAB PO PRN ×4 (05:45→20:45)
[2018-01-27 07:23] LABS: BASOPHIL # 0.1 TH/MM3 (0-0.2); BASOPHIL % 0.5 % (0.0-2.0); EOSINOPHIL # 0.5 TH/MM3 (0-0.4); EOSINOPHIL % 4.9 % (0.0-4.0); HEMATOCRIT 37.8 % (39.0-51.0); HEMOGLOBIN 12.9 GM/DL (13.0-17.0); LYMPH % 16.8 % (9.0-44.0); LYMPHOCYTE # 1.7 TH/MM3 (1.0-4.8); MEAN CELL VOLUME 85.7 FL (80.0-100.0); MEAN CORPUSCULAR HEMOGLOBIN 29.1 PG (27.0-34.0); MEAN PLATELET VOLUME 8.4 FL (7.0-11.0); MONO % 8.6 % (0.0-8.0); MONOCYTE # 0.9 TH/MM3 (0-0.9); NEUT % 69.2 % (16.0-70.0); PLATELET COUNT 442 TH/MM3 (150-450); RED BLOOD COUNT 4.41 MIL/MM3 (4.50-5.90); WHITE BLOOD COUNT 10.1 TH/MM3 (4.0-11.0)
[2018-01-27 07:51] LABS: BICARBONATE 25.7 MEQ/L (21.0-32.0); CALCIUM 8.8 MG/DL (8.5-10.1); CREATININE 1.25 MG/DL (0.60-1.30); MAGNESIUM 1.8 MG/DL (1.5-2.5)
[2018-01-27 08:00] VITALS: BP 118/73; PULSE 73; RESP 19; TEMP 98.1; O2SAT 94
[2018-01-27] MEDS: INSULIN ASPART SUPPLEMENTAL SCALE SQ SCH ×4 (08:00→20:46)
[2018-01-27] MEDS: TAMSULOSIN HCL 0.4 MG CAP PO SCH (08:44)
[2018-01-27] MEDS: PANTOPRAZOLE SODIUM 40 MG VIAL IV PUSH SCH ×2 (08:44→20:47)
[2018-01-27] MEDS: PIPERACIL-TAZO 3.375 GM PREMIX 50 ML IV SCH ×3 (08:44→23:09)
[2018-01-27] MEDS: DOCUSATE SODIUM 50 MG/SENNA 8.6 MG TAB PO SCH ×2 (08:45→20:46)
[2018-01-27] MEDS: PRAVASTATIN SOD 40 MG TAB PO SCH (08:45)
[2018-01-27] MEDS: INSULIN DETEMIR 100 UNITS/ML VIAL SQ SCH ×2 (08:45→20:47)
[2018-01-27] MEDS: HYDROmorphone HCL PF 2 MG/ML VIAL IV PRN ×4 (08:53→21:45)
[2018-01-27 12:00] VITALS: BP 120/61; PULSE 82; RESP 19; TEMP 99.1; O2SAT 96
--- NOTE | 2018-01-27 13:42 | HHI.PR ---
Subjective Remarks Afebrile Pain is controlled with oral meds but still occasionally requiring IV pain med Wound still with purulent red/brown drainage Prt reports no BM for a few days No nausea or vomiting, +Flatus Objective Vitals Vital Signs Date Time Temp Pulse Resp B/P (MAP) Pulse Ox O2 Delivery O2 Flow Rate FiO2 01/27/18 12:00 99.1 82 19 120/61 (80) 96 01/27/18 08:00 98.1 73 19 118/73 (88) 94 01/27/18 00:00 98.9 82 18 120/71 (87) 94 01/26/18 20:00 99.1 86 18 122/71 (88) 96 01/26/18 16:00 98.6 100 19 150/78 (102) 99 Result Diagram: 01/27/18 0601/27/18 06 Other Results Laboratory Tests Test 01/25/18 20:45 01/27/18 06:26 Vancomycin Level Trough 9.5 MCG/ML White Blood Count 10.1 TH/MM3 Red Blood Count 4.41 MIL/MM3 Hemoglobin 12.9 GM/DL Hematocrit 37.8 % Mean Corpuscular Volume 85.7 FL Mean Corpuscular Hemoglobin 29.1 PG Mean Corpuscular Hemoglobin Concent 34.0 % Red Cell Distribution Width 14.0 % Platelet Count 442 TH/MM3 Mean Platelet Volume 8.4 FL Neutrophils (%) (Auto) 69.2 % Lymphocytes (%) (Auto) 16.8 % Monocytes (%) (Auto) 8.6 % Eosinophils (%) (Auto) 4.9 % Basophils (%) (Auto) 0.5 % Neutrophils # (Auto) 7.0 TH/MM3 Lymphocytes # (Auto) 1.7 TH/MM3 Monocytes # (Auto) 0.9 TH/MM3 Eosinophils # (Auto) 0.5 TH/MM3 Basophils # (Auto) 0.1 TH/MM3 CBC Comment DIFF FINAL Differential Comment Blood Urea Nitrogen 15 MG/DL Creatinine 1.25 MG/DL Random Glucose 171 MG/DL Calcium Level 8.8 MG/DL Magnesium Level 1.8 MG/DL Sodium Level 135 MEQ/L Potassium Level 3.9 MEQ/L Chloride Level 101 MEQ/L Carbon Dioxide Level 25.7 MEQ/L Anion Gap 8 MEQ/L Estimat Glomerular Filtration Rate 58 ML/MIN Imaging Last 72 hours Impressions Scrotum Ultrasound 3/5/18 0000 Signed Impressions: Service Date/Time: Friday, January 19, 2018 20:47 - CONCLUSION: 1. Bilateral testicles have a normal appearance with intact flow by color Doppler. 2. Irregular shaped heterogeneous echotexture abnormality in the posterior scrotum measuring excess of 5 cm. Inder Campuzano MD Abdomen/Pelvis CT 01/19/18 0000 Signed Impressions: Service Date/Time: Friday, January 19, 2018 19:55 - CONCLUSION: 1. Induration of the subcutaneous soft tissues in the right perianal region without focal fluid collection. 2. Both collecting system and ureters are mildly dilated, but no calcified stones seen on either side. 3. Distended urinary bladder, similar to prior CT in 2000. Inder Campuzano MD Objective Remarks GENERAL: This is a well-nourished, well-developed patient, in no apparent distress. CARDIO: Regular RESP: CTA bilaterally. ABD: +BS, soft, non-tender, nondistended. : two incision, one is perirectal and the other is perineal, perineal incision with brown/red purulent drainage less pain and erythema of the surrounding skin areas EXT: No edema. A/P Problem List: (1) Perirectal abscess ICD Codes: K61.1 - Rectal abscess Status: Acute Plan: - 62 y/o WM with DM who presented to the ED for perirectal abscess and pain/ swelling in scrotum. - Pt was first treated with Keflex on 01/13/18 for david-rectal abscess, then had I&D performed by Dr Grubbs on 01/15/18 and was reportedly placed on Bactrim for last few days. Cultures of abscess revealed group B Strep. He developed low grade fevers on 01/19 and complained of more swelling in scrotum with difficulty having BMs over the previous 2 days. - Was seen in gen surgery office on 01/19 and directed to ER for possible progression of abscess with possible scrotal abscess as well. - CT abd/pelvis (01/19/18) --> Induration of the subcutaneous soft tissues in the right perianal region without focal fluid collection. Both collecting system and ureters are mildly dilated, but no calcified stones seen on either side. Distended urinary bladder, similar to prior CT in 2000. - U/S scrotum (01/19/18) --> Bilateral testicles have a normal appearance with intact flow by color Doppler. Irregular shaped heterogeneous echotexture abnormality in the posterior scrotum measuring excess of 5 cm. - Pt was started on IV Vanco (with pharmacy to dose) and Zosyn, IVF and pain meds PRN - Urology has signed off. - General surgery following and pt underwent Incision and drainage perineal abscess and perirectal abscess on 01/22/[address] Guevara the procedure revealed large perineal abscess with large amt of pus drained which was communicating with perirectal abscess. - GS recommending leaving packing out and sitz baths - Possible need for return to OR this week, Dr. uGevara to follow wound on Friday, 01/28, to decide about need for repeat debridement - Check KUB today and tomorrow as pt has not moved his bowels in a few days - Cont. Pericolace BID, MOM pRN, add Lactulose a dose today and daily PRN (2) DM2 (diabetes mellitus, type 2) ICD Codes: E11.9 - Type 2 diabetes mellitus without complications Status: Chronic Plan: - BS are somewhat better controlled on higher Levemir dose - SSI increased to high dose on 01/21 - Levemir 15 units BID - Hold outpt meds (3) Urinary retention ICD Codes: R33.9 - Retention of urine, unspecified Plan: - Johnson catheter removed - Pt started on Flomax Assessment and Plan Patient examined. Assessment and plan formulated with Harmony Fallon PA-C. I agree with the above. Problem Qualifiers (1) DM2 (diabetes mellitus, type 2): Harmony Fallon Jan 27, 2018 13:42 Maxx Woo DO Jan 31, 2018 14:32
[2018-01-27] MEDS ORDERED: LACTULOSE SYRUP 20 GM/30 ML CUP PO ONE (14:30)
[2018-01-27] MEDS ORDERED: LACTULOSE SYRUP 20 GM/30 ML CUP PO PRN (14:30)
--- NOTE | 2018-01-27 15:54 | RADRPT ---
EXAM DATE/TIME: 01/27/2018 15:19 [facility] COMPARISON: CHEST PA & LAT, December 24, 2017, 19:36. INDICATIONS : Constipation. MEDICAL HISTORY : None. SURGICAL HISTORY : Appendectomy. ENCOUNTER: Initial ACUITY: 4 - 6 days PAIN SCORE: 0/10 LOCATION: Bilateral abdomen. FINDINGS: The examination demonstrates a moderate amount of stool throughout the colon suggesting constipation. There are no findings to indicate bowel obstruction. The visualized bony structures are grossly intact. There are degenerative changes in the lower lumbar spine and hips. CONCLUSION: 1. Moderate amount of stool throughout the colon suggesting constipation. Carlos Saldaña MD on January 27, 2018 at 15:43 Board Certified Radiologist. This report was verified electronically.
[2018-01-27 16:00] VITALS: BP 123/69; PULSE 79; RESP 19; TEMP 98.9; O2SAT 93
[2018-01-27 20:00] VITALS: BP 114/60; PULSE 80; RESP 20; TEMP 99.2; O2SAT 97
[2018-01-27] MEDS: MAGNESIUM HYDROXIDE SUSP 30 ML CUP PO PRN (20:43)
[2018-01-28] VITALS (8 sets, daily range): BP systolic 80–122; BP diastolic 44–66; PULSE 68–101; RESP 16–22; TEMP 96.8–102.4; O2SAT 89–97
[2018-01-28] MEDS: SIMETHICONE 125 MG CHEWABLE TAB PO SCH ×3 (05:47→22:55)
[2018-01-28] MEDS: oxyCODONE/ACETAMINOPHEN 10 MG/325 MG TAB PO PRN (05:47)
--- NOTE | 2018-01-28 07:49 | RADRPT ---
EXAM DATE/TIME: 01/28/2018 06:52 [facility] COMPARISON: CT ABDOMEN & PELVIS W/O CONTRAST, January 19, 2018, 19:55. ABDOMEN KUB ONLY, January 27, 2018, 15:19. INDICATIONS : Constipation. MEDICAL HISTORY : None. SURGICAL HISTORY : Appendectomy. ENCOUNTER: Initial ACUITY: 1 week PAIN SCORE: 1/10 LOCATION: Bilateral abdomen FINDINGS: Moderate stool throughout the colon. Multiple loops of nondistended air-filled small bowel in the mid abdomen. No pneumatosis or free air. No abnormal calcifications. Remainder of the exam is unchanged. CONCLUSION: 1. Persistent moderate proximal colonic stool. 2. No significant interval change. Carroll Colin MD on January 28, 2018 at 7:45 Board Certified Radiologist. This report was verified electronically.
[2018-01-28 07:59] LABS: CREATININE 1.19 MG/DL (0.60-1.30)
[2018-01-28] MEDS: TAMSULOSIN HCL 0.4 MG CAP PO SCH (08:18)
[2018-01-28] MEDS: PANTOPRAZOLE SODIUM 40 MG VIAL IV PUSH SCH ×2 (08:18→21:22)
[2018-01-28] MEDS: DOCUSATE SODIUM 50 MG/SENNA 8.6 MG TAB PO SCH ×2 (08:18→21:22)
[2018-01-28] MEDS: PRAVASTATIN SOD 40 MG TAB PO SCH (08:18)
[2018-01-28] MEDS: PIPERACIL-TAZO 3.375 GM PREMIX 50 ML IV SCH ×2 (08:19→16:00)
[2018-01-28] MEDS: INSULIN ASPART SUPPLEMENTAL SCALE SQ SCH ×4 (08:20→21:00)
[2018-01-28] MEDS: INSULIN DETEMIR 100 UNITS/ML VIAL SQ SCH ×2 (08:20→21:23)
[2018-01-28] MEDS ORDERED: ACETAMINOPHEN 325 MG TAB PO PRN (09:00)
--- NOTE | 2018-01-28 09:46 | RADRPT ---
EXAM DATE/TIME: 01/28/2018 09:03 [facility] COMPARISON: No previous studies available for comparison. INDICATIONS : Fever and short of breath. MEDICAL HISTORY : Hypertension. Diabetes mellitus type 2. SURGICAL HISTORY : Appendectomy. ENCOUNTER: Initial ACUITY: 1 week PAIN SCORE: 0/10 LOCATION: Bilateral chest FINDINGS: The heart is top normal in size. Minimal bibasilar streakiness is noted consistent with atelectasis. No alveolar consolidation is noted. Degenerative changes are noted throughout the thoracic spine. CONCLUSION: Minimal bibasilar streakiness consistent with probable atelectasis. Torres Villa MD on January 28, 2018 at 9:43 Board Certified Radiologist. This report was verified electronically.
[2018-01-28 10:54] LABS: AUTOMATED NEUTROPHIL # 15.7 TH/MM3 (1.8-7.7); BASOPHIL # 0.1 TH/MM3 (0-0.2); BASOPHIL % 0.4 % (0.0-2.0); EOSINOPHIL # 0.4 TH/MM3 (0-0.4); HEMATOCRIT 39.8 % (39.0-51.0); HEMOGLOBIN 13.2 GM/DL (13.0-17.0); LYMPH % 4.5 % (9.0-44.0); LYMPHOCYTE # 0.8 TH/MM3 (1.0-4.8); MEAN CELL VOLUME 85.1 FL (80.0-100.0); MEAN CORPUSCULAR HEMOGLOBIN 28.2 PG (27.0-34.0); MEAN CORPUSCULAR HGB CONC 33.1 % (32.0-36.0); MEAN PLATELET VOLUME 8.1 FL (7.0-11.0); MONO % 6.2 % (0.0-8.0); MONOCYTE # 1.1 TH/MM3 (0-0.9); NEUT % 86.9 % (16.0-70.0); PLATELET COUNT 414 TH/MM3 (150-450); RED BLOOD COUNT 4.68 MIL/MM3 (4.50-5.90); RED CELL DISTRIBUTION WIDTH 14.3 % (11.6-17.2); WHITE BLOOD COUNT 18.1 TH/MM3 (4.0-11.0)
[2018-01-28 11:17] LABS: BICARBONATE 24.6 MEQ/L (21.0-32.0); CALCIUM 8.4 MG/DL (8.5-10.1); CREATININE 1.25 MG/DL (0.60-1.30); MAGNESIUM 1.8 MG/DL (1.5-2.5)
[2018-01-28] MEDS ORDERED: GLYCOPYRROLATE 1 MG/5 ML SYRINGE IV PUSH ONE (12:00)
[2018-01-28] MEDS ORDERED: LACTATED RINGER'S 1000 ML INJ 1,000 ML IV ONE (12:00)
[2018-01-28] MEDS ORDERED: PHENYLEPH/NS 1000 MCG/10 ML SYR IV ONE (12:00)
[2018-01-28] MEDS ORDERED: ONDANSETRON HCL 4 MG/2 ML VIAL IV ONE (12:00)
[2018-01-28] MEDS ORDERED: LIDOCAINE HCL 1% PF 5 ML SYRINGE OTHER ONE (12:00)
[2018-01-28] MEDS ORDERED: PROPOFOL 200 MG/20 ML AMP IV ONE (12:00)
--- NOTE | 2018-01-28 12:24 | HHI.PR ---
Subjective Subjective Notes Tm 102. WBC is now 18. He reportedly had an acute change last night with confusion and malaise today. He has no specific complaints, and denies chest pain, abdominal pain, cough, dysuria. Family is at bedside. Objective Vitals/I&O Vital Signs Date Time Temp Pulse Resp B/P (MAP) Pulse Ox O2 Delivery O2 Flow Rate FiO2 01/28/18 10:00 99.2 01/28/18 08:00 101 18 122/66 (84) 89 Labs Laboratory Tests Test 01/28/18 06:37 01/28/18 10:34 Creatinine 1.19 1.25 Estimat Glomerular Filtration Rate 62 58 White Blood Count 18.1 Red Blood Count 4.68 Hemoglobin 13.2 Hematocrit 39.8 Mean Corpuscular Volume 85.1 Mean Corpuscular Hemoglobin 28.2 Mean Corpuscular Hemoglobin Concent 33.1 Red Cell Distribution Width 14.3 Platelet Count 414 Mean Platelet Volume 8.1 Neutrophils (%) (Auto) 86.9 Lymphocytes (%) (Auto) 4.5 Monocytes (%) (Auto) 6.2 Eosinophils (%) (Auto) 2.0 Basophils (%) (Auto) 0.4 Neutrophils # (Auto) 15.7 Lymphocytes # (Auto) 0.8 Monocytes # (Auto) 1.1 Eosinophils # (Auto) 0.4 Basophils # (Auto) 0.1 CBC Comment DIFF FINAL Differential Comment Blood Urea Nitrogen 13 Random Glucose 232 Calcium Level 8.4 Magnesium Level 1.8 Sodium Level 134 Potassium Level 4.3 Chloride Level 101 Carbon Dioxide Level 24.6 Anion Gap 8 Date/Time Source Procedure Growth Status 01/28/18 10:39 Blood Peripheral Aerobic Blood Culture Pending Received 01/28/18 10:39 Blood Peripheral Anaerobic Blood Culture Pending Received 01/22/18 13:33 Wound Groin Gram Stain - Final Complete 01/22/18 13:33 Wound Groin Wound Culture - Final Complete Narrative Exam No distress Perineal area more indurated; there is some visible necrotic tissue; there is purulent drainage from both wounds A/P Assessment and Plan S/p I&D perineal abscess, repeat drainage of perirectal abscess. Large amt of pus drained. Overall clinical status has worsened. I'm not sure if it is related to the wounds or not but I do think he needs repeat debridement. I will discuss with urology Dr. Rowe possible joint procedure. Robby Guevara MD Jan 28, 2018 12:24
[2018-01-28] MEDS ORDERED: NS + KCL 20 MEQ INJ 1,000 ML IV SCH ×2 (13:00→13:45)
--- NOTE | 2018-01-28 13:44 | PD.ID.CON ---
History of Present Illness Service ID Consult Requested By Reason for Consult Evaluation and Mment of Scrotal and perineal cellulitis. Primary Care Physician Rick Funk M.D. Diagnoses: History of Present Illness is a 62 y/o. WM with DM presents to ER under direction of Dr Grubbs re: perirectal abscess and pain/swelling in scrotum. Patient reports being seen by his PCP on 01/13/18 and treated with Keflex abx 01/13/18 for scrotal abscess. He was referred to as outpatient. He had I&D performed by Dr Grubbs on 01/15/18 and was reportedly placed on Bactrim for last few days. Cultures of abscess reportedly done as outpatient revealed Strep. He had low grade fevers today and has noted more swelling in scrotum with difficulty urinating and having BMs over last 2 days. No vomiting, but + nausea. He was seen in gen surgery office and directed to ER for possible progression of abscess with possible scrotal abscess as well. CT abd/pelvis noted for induration in perineal area, but not obvious abscess. U/S scrotum reveal irreg structure appx 5 cm most c/w abscess per ER provider. Testicles appear wnl bilat. Pt placed on IV abx Zosyn IV and Vanco IV and pain meds. Patient was evaluated by General Surgery and I&D of abscesses in Perineum Rt buttock cheek and Rt scrotum performed. Due to persistent fevers and persistent yellowish drainage patient is being taken back to OR for possible joint Urology and General surgery evaluation. ID was consulted for evaluation and Mment of Sepsis (fever, leucocytosis and source of infection: Scrotal and perineal abscesses). Review of Systems ROS Limitations: Poor Historian Constitutional: COMPLAINS OF: Chills, DENIES: Diaphoretic episodes, Fatigue, Fever, Weight gain, Weight loss, Dizziness, Change in appetite, Night Sweats Endocrine: DENIES: Heat/cold intolerance, Polydipsia, Polyuria, Polyphagia Eyes: DENIES: Blurred vision, Diplopia, Eye inflammation, Eye pain, Vision loss , Photosensitivity, Double Vision Ears, nose, mouth, throat: DENIES: Tinnitus, Hearing loss, Vertigo, Nasal discharge, Oral lesions, Throat pain, Hoarseness, Ear Pain, Running Nose, Epistaxis, Sinus Pain, Toothache, Odynophagia Respiratory: DENIES: Apneas, Cough, Snoring, Wheezing, Hemoptysis, Sputum production, Shortness of breath Cardiovascular: DENIES: Chest pain, Palpitations, Syncope, Dyspnea on Exertion , PND, Lower Extremity Edema, Orthopnea, Claudication Gastrointestinal: COMPLAINS OF: Anorexia, DENIES: Abdominal pain, Black stools , Bloody stools, Constipation, Diarrhea, Nausea, Vomiting, Difficulty Swallowing Genitourinary: COMPLAINS OF: Dysuria, DENIES: Sexual dysfunction, Urinary frequency, Urinary incontinence, Urgency, Hematuria, Nocturia, Penile Discharge , Testicular Pain, Testicular Swelling Musculoskeletal: DENIES: Joint pain, Muscle aches, Stiffness, Joint Swelling, Back pain, Neck pain Integumentary: DENIES: Abnormal pigmentation, Nail changes, Pruritus, Rash Hematologic/lymphatic: DENIES: Bruising, Lymphadenopathy Immunologic/allergic: DENIES: Eczema, Urticaria Neurologic: DENIES: Abnormal gait, Headache, Localized weakness, Paresthesias, Seizures, Speech Problems, Tremor, Poor Balance Psychiatric: DENIES: Anxiety, Confusion, Mood changes, Depression, Hallucinations, Agitation, Suicidal Ideation, Homicidal Ideation, Delusions Except as stated in HPI: all other systems reviewed are Neg Past Family Social History Allergies: Coded Allergies: No Known Allergies (Verified Allergy, Unknown, 01/20/18) morphine (Verified Adverse Reaction, Unknown, Hallucinations, 01/20/18) Past Medical History DM 2 with nephropathy GERD Obesity HTN Scrotal abscess was being treated with oral bactrim Past Surgical History Appendectomy Neck Abscess I&D Reported Medications Reported Meds & Active Scripts Active Reported Oxycodone (Oxycodone HCl) 5 Mg Cap 5 Mg PO Q6H PRN Tanzeum 4-Pack Inj (Albiglutide) 50 Mg Pfpen 50 Mg SQ Q7D Lisinopril 5 Mg Tab 5 Mg PO DAILY Pravachol (Pravastatin) 40 Mg Tab 40 Mg PO DAILY Tricor (Fenofibrate) 145 Mg Tab 145 Mg PO DAILY Takw with food. Active Ordered Medications Current Medications Medications (Trade) Dose Ordered Sig/Laila Route Start Time Stop Time Status Last Admin (NS Flush) 2 ml UNSCH PRN IV FLUSH 01/19/18 19:30 01/26/18 21:06 Pharmacy Profile Note 0 ml @ 0 mls/hr UNSCH OTHER 01/20/18 00:00 Piperacillin Sod/ Tazobactam Sod 50 ml @ 100 mls/hr Q8H IV 01/20/18 00:00 01/28/18 08:19 (Zofran Inj) 4 mg Q6HR PRN IV PUSH 01/20/18 00:00 (Pravachol) 40 mg DAILY PO 01/20/18 09:00 01/28/18 08:18 (Dilaudid Pf Inj) 1 mg Q3H PRN IV 01/20/18 01:45 01/27/18 21:45 (Thorazine) 25 mg Q8H PRN PO 01/20/18 09:15 01/23/18 00:13 (Korina-Colace) 2 tab BID PO 01/20/18 09:15 01/28/18 08:18 (Flomax) 0.4 mg DAILY PO 01/20/18 14:00 01/28/18 08:18 (Milk Of Magnesia Liq) 30 ml DAILY PRN PO 01/20/18 14:30 01/27/18 20:43 (NovoLOG SUPPLEMENTAL SCALE) 1 ACHS SLIDING SCALE SQ 01/21/18 12:00 01/28/18 12:00 (D50w (Vial) Inj) 50 ml UNSCH PRN IV PUSH 01/21/18 11:45 (Glucagon Inj) 1 mg UNSCH PRN OTHER 01/21/18 11:45 (Phazyme Chew) 125 mg Q8HR PO 01/22/18 14:00 01/28/18 05:47 (Protonix Inj) 40 mg Q12HR IV PUSH 01/22/18 10:00 01/28/18 08:18 (Levemir Inj) 15 units Q12HR SQ 01/25/18 21:00 01/28/18 08:20 (Percocet 10-325 Mg) 1 tab Q4H PRN PO 01/25/18 13:30 01/28/18 05:47 Vancomycin HCl 1500 mg/Sodium Chloride 515 ml @ 257.5 mls/ hr Q18H IV 01/26/18 12:00 01/27/18 23:52 Miscellaneous Information SPECIFIC LAB TO BE LELE... ONCE ONCE .XX 01/28/18 17:45 01/28/18 17:46 (Lactulose Liq) 30 ml DAILY PRN PO 01/27/18 14:30 (Tylenol) 325 mg Q4H PRN PO 01/28/18 09:00 01/28/18 08:35 Potassium Chloride/Sodium Chloride 1,000 ml @ 125 mls/hr Q8H IV 01/28/18 14:45 Clindamycin/ Sodium Chloride 50 ml @ 100 mls/hr Q8H IV 01/28/18 13:45 UNV Micafungin Sodium 150 mg/Sodium Chloride 100 ml @ 100 mls/hr Q24H IV 01/28/18 13:45 UNV Family History Father- Afib Brother- Afib, DM Mother- stroke Social History No tobacco, No EtOH, No illicits born and raised locally Salesman for [employer] Physical Exam Vital Signs Vital Signs Date Time Temp Pulse Resp B/P (MAP) Pulse Ox O2 Delivery O2 Flow Rate FiO2 01/28/18 12:00 98.7 89 16 99/58 (72) 96 01/28/18 10:15 93 Nasal Cannula 2.50 01/28/18 10:00 99.2 01/28/18 08:00 102.4 101 18 122/66 (84) 89 01/28/18 00:00 96.8 68 20 102/58 (73) 96 01/27/18 20:00 99.2 80 20 114/60 (78) 97 01/27/18 16:00 98.9 79 19 123/69 (87) 93 Physical Exam GENERAL: This is a well-nourished, well-developed patient, in no apparent distress. SKIN: No rashes, ecchymoses or lesions. Cool and dry. HEAD: Atraumatic. Normocephalic. No temporal or scalp tenderness. EYES: Pupils equal round and reactive. Extraocular motions intact. No scleral icterus. No injection or drainage. ENT: Nose without bleeding, purulent drainage or septal hematoma. Throat without erythema, tonsillar hypertrophy or exudate. Uvula midline. Airway patent. NECK: Trachea midline. Supple, nontender, no meningeal signs. CARDIOVASCULAR: HS audible. RESPIRATORY: Clear to auscultation. Breath sounds equal bilaterally. No wheezes , rales, or rhonchi. GASTROINTESTINAL: Abdomen soft, non-tender, nondistended. MUSCULOSKELETAL: Extremities without clubbing, cyanosis, or edema. No joint tenderness, effusion, or edema noted. No calf tenderness. Negative Homans sign bilaterally. NEUROLOGICAL: Awake and alert. Non focal Scrotum: Right side with opening with purulent drainage and black appearing tissue could be pulled out. Rt buttock cheek opening with purulence noted as well. Erythema in perineal area and skin folds ? Fungal Intertrigo. Psych cooperative IV line sites with no e/o infection. Laboratory Laboratory Tests Test 01/28/18 06:37 01/28/18 10:34 Creatinine 1.19 1.25 Estimat Glomerular Filtration Rate 62 58 White Blood Count 18.1 Red Blood Count 4.68 Hemoglobin 13.2 Hematocrit 39.8 Mean Corpuscular Volume 85.1 Mean Corpuscular Hemoglobin 28.2 Mean Corpuscular Hemoglobin Concent 33.1 Red Cell Distribution Width 14.3 Platelet Count 414 Mean Platelet Volume 8.1 Neutrophils (%) (Auto) 86.9 Lymphocytes (%) (Auto) 4.5 Monocytes (%) (Auto) 6.2 Eosinophils (%) (Auto) 2.0 Basophils (%) (Auto) 0.4 Neutrophils # (Auto) 15.7 Lymphocytes # (Auto) 0.8 Monocytes # (Auto) 1.1 Eosinophils # (Auto) 0.4 Basophils # (Auto) 0.1 CBC Comment DIFF FINAL Differential Comment Blood Urea Nitrogen 13 Random Glucose 232 Calcium Level 8.4 Magnesium Level 1.8 Sodium Level 134 Potassium Level 4.3 Chloride Level 101 Carbon Dioxide Level 24.6 Anion Gap 8 Date/Time Source Procedure Growth Status 01/28/18 10:39 Blood Peripheral Aerobic Blood Culture Pending Received 01/28/18 10:39 Blood Peripheral Anaerobic Blood Culture Pending Received 01/22/18 13:33 Wound Groin Gram Stain - Final Complete 01/22/18 13:33 Wound Groin Wound Culture - Final Complete Result Diagram: 01/28/18 1034 01/28/18 1034 Imaging Last Impressions Abdomen X-Ray 01/28/18 0600 Signed Impressions: Service Date/Time: Sunday, January 28, 2018 06:52 - CONCLUSION: 1. Persistent moderate proximal colonic stool. 2. No significant interval change. Carroll Colin MD Chest X-Ray 01/28/18 0000 Signed Impressions: Service Date/Time: Sunday, January 28, 2018 09:03 - CONCLUSION: Minimal bibasilar streakiness consistent with probable atelectasis. Torres Villa MD Scrotum Ultrasound 01/19/18 Signed Impressions: Service Date/Time: Friday, January 19, 2018 20:47 - CONCLUSION: 1. Bilateral testicles have a normal appearance with intact flow by color Doppler. 2. Irregular shaped heterogeneous echotexture abnormality in the posterior scrotum measuring excess of 5 cm. Inder Campuzano MD Abdomen/Pelvis CT 01/19/18 Signed Impressions: Service Date/Time: Friday, January 19, 2018 19:55 - CONCLUSION: 1. Induration of the subcutaneous soft tissues in the right perianal region without focal fluid collection. 2. Both collecting system and ureters are mildly dilated, but no calcified stones seen on either side. 3. Distended urinary bladder, similar to prior CT in 2000. Inder Campuzano MD Assessment and Plan Assessment and Plan Sepsis (fever, leucocytosis and source of infection: Scrotal and perineal abscesses). Scrotal and Perineal abscesses (likely secondary to local folliculitis). Patient works for [employer] in sales. DM 2 uncontrolled: infection Recs: Continue Zosyn IV Continue Vanco IV (target 10-15) Start Clinda IV (for toxin neutralization effect in view of ongoing necrosis: black tissue seen from Rt scrotal area opening) Start Micafungin IV Follow intra op cultures Follow clinically Dw Patient source control is important and will likely need washouts and possibly wound vac placement depending on intra op findings. Margarita patient, and daughters in room. Margarita Wu: BP on lower side,pt asymptomatic. With new increase in WBC and fevers concern for sepsis: check lactic acid and consider fluid bolus. Ordered stat lactic acid to follow. margarita RN to make sure antibiotics given as ordered. Alesia Haile MD Jan 28, 2018 13:44
[2018-01-28] MEDS ORDERED: SODIUM CHLOR 0.9% 1000 ML INJ 1,000 ML IV ONE (13:45)
[2018-01-28] MEDS: CLINDAMYCIN 900 MG/NS PREMIX 50 ML IV SCH ×2 (14:25→22:55)
[2018-01-28] MEDS ORDERED: ACETAMINOPHEN 1000 MG/100 ML 100 ML IV ONE (15:16)
[2018-01-28] MEDS ORDERED: HYDROmorphone HCL PF 2 MG/ML VIAL ONE ×2 (15:18→15:54)
--- NOTE | 2018-01-28 15:26 | PD.OP ---
cc: Robby Guevara MD Operative Report Date of Surgery: Jan 28, 2018 Preoperative Diagnosis: (1) Perirectal abscess (2) Perineal abscess Postoperative Diagnosis: (1) Perirectal abscess (2) Perineal abscess Procedure: Drainage and Debridement soft tissue of perineal and perirectal abscesses Anesthesia: Gen Surgeon: Robby Gates Motion Picture Camera Lens Technician(s): Staff Operation and Findings: EBL: Operative findings: Residual purulent fluid posteriorly in the perirectal. Necrotic tissue from the peritoneal wound debrided. Dr. Oro performed evaluation of the perineal wound and assisted in debridement. He identified that there is no invasion into the scrotum itself. Procedure in detail: The patient was taken to the operating room and placed in the supine position. General anesthesia is induced. He was then placed in lithotomy position. The entire perineal area is prepped and draped in usual sterile fashion. Initial exploration of the peroneal cavity is commenced. Dr. Oro performed debridement and exploration. There is no evidence of extension into the scrotum itself. Debridement of subcutaneous tissue was performed. The perirectal cavity had purulent fluid posteriorly and the incision was extended posteriorly. Some necrotic subcutaneous tissue was debrided. When all necrotic tissue had been debrided both of these cavities were copiously irrigated. A [place] drain was applied between the 2 incisions. Damp packing was placed and sterile dressing applied. The patient tolerated the procedure well and was extubated and taken to PACU in stable condition. Robby Guevara MD Jan 28, 2018 15:26
--- NOTE | 2018-01-28 15:34 | PD.OP ---
Operative Report Date of Surgery: Jan 28, 2018 Preoperative Diagnosis: (1) Scrotal abscess (2) Perineal abscess Postoperative Diagnosis: (1) Scrotal abscess (2) Perineal abscess Procedure: Urologic procedures performed: Exploration of scrotal wound with debridement Anesthesia: General Surgeon: Seng Gates Order To Delivery Supervisor(s): None Operation and Findings: Indication for urologic procedures: Consulted intraoperatively to evaluate the possible need for further debridement in this gentleman admitted with a scrotal and perineal abscess. Urologic surgery procedures performed: Concurrent with the general surgeon Dr. Guevara, I proceeded with exploration of the scrotal wound. The wound had previously been debrided. There was a small amount of devitalized tissue which was sharply debrided away. Evaluation of testicles did not demonstrate any abnormalities. The superior aspect of the inflammatory process extended to the base of the scrotum. The scrotal skin itself appeared normal without any evidence of necrosis. I placed a 16 [place] 10 cc Johnson catheter sterilely to make certain that there was no involvement of the urethra. Urethra itself was intact without involvement of the inflammatory process. Seng Gates MD Jan 28, 2018 15:34
[2018-01-28] MEDS ORDERED: DO NOT ADM ANY ANTICOAGULANT DRUGS PRN (15:36)
[2018-01-28] MEDS: NS + KCL 20 MEQ INJ 1,000 ML IV SCH ×2 (16:00→23:46)
[2018-01-28] MEDS: MICAFUNGIN INJ 150 MG in SODIUM CHLORIDE 0.9% INJ 100 ML IV SCH (16:45)
[2018-01-28 17:05] LABS: LACTIC ACID SEPSIS PROTOCOL 2.2 mmol/L (0.4-2.0)
[2018-01-28] MEDS ORDERED: PHARMACY ORDERED LAB ONE (17:45)
[2018-01-28 17:52] LABS: AUTOMATED NEUTROPHIL # 12.4 TH/MM3 (1.8-7.7); BASOPHIL # 0.1 TH/MM3 (0-0.2); BASOPHIL % 0.7 % (0.0-2.0); EOSINOPHIL # 0.2 TH/MM3 (0-0.4); EOSINOPHIL % 1.5 % (0.0-4.0); LYMPH % 7.8 % (9.0-44.0); LYMPHOCYTE # 1.2 TH/MM3 (1.0-4.8); MEAN CELL VOLUME 85.3 FL (80.0-100.0); MEAN CORPUSCULAR HEMOGLOBIN 28.3 PG (27.0-34.0); MEAN CORPUSCULAR HGB CONC 33.2 % (32.0-36.0); MEAN PLATELET VOLUME 8.3 FL (7.0-11.0); MONO % 7.8 % (0.0-8.0); MONOCYTE # 1.2 TH/MM3 (0-0.9); NEUT % 82.2 % (16.0-70.0); PLATELET COUNT 361 TH/MM3 (150-450); RED BLOOD COUNT 4.22 MIL/MM3 (4.50-5.90); RED CELL DISTRIBUTION WIDTH 14.4 % (11.6-17.2); WHITE BLOOD COUNT 15.1 TH/MM3 (4.0-11.0)
[2018-01-28] MEDS: VANCOMYCIN 1,500 MG/NS 500 ML IV SCH ×2 (17:54)
[2018-01-28 18:28] LABS: BICARBONATE 22.5 MEQ/L (21.0-32.0); CALCIUM 8.1 MG/DL (8.5-10.1); CREATININE 1.23 MG/DL (0.60-1.30); MAGNESIUM 1.8 MG/DL (1.5-2.5)
[2018-01-28] MEDS: HYDROmorphone HCL PF 2 MG/ML VIAL IV PRN ×2 (19:03→22:00)
--- NOTE | 2018-01-28 19:24 | HHI.PR ---
Subjective Remarks Patient S/P drainage and debridement of soft tissue of perineal and perirectal abscesses by Dr. Guevara and Exploration of scrotal wound with debridement by Yajaira Objective Vitals Vital Signs Date Time Temp Pulse Resp B/P (MAP) Pulse Ox O2 Delivery O2 Flow Rate FiO2 01/28/18 18:00 85 01/28/18 17:27 98.2 80 22 102/56 (71) 93 01/28/18 16:45 96 16 101/52 (68) 94 Nasal Cannula 2 01/28/18 16:30 98.2 92 16 108/56 (73) 92 Nasal Cannula 2 01/28/18 16:24 15 01/28/18 16:15 90 16 114/63 (80) 95 Nasal Cannula 3 01/28/18 16:00 89 16 108/61 (77) 95 Nasal Cannula 3 01/28/18 15:45 88 15 99/56 (70) 98 Nasal Cannula 4 01/28/18 15:35 98.1 85 15 92/50 (64) 96 Nasal Cannula 4 01/28/18 12:00 98.7 89 16 99/58 (72) 96 01/28/18 10:15 93 Nasal Cannula 2.50 01/28/18 10:00 99.2 01/28/18 08:00 102.4 101 18 122/66 (84) 89 01/28/18 00:00 96.8 68 20 102/58 (73) 96 01/27/18 20:00 99.2 80 20 114/60 (78) 97 01/28/18 01/28/18 01/29/18 15:00 23:00 07:00 Intake Total 920 ml Output Total 100 ml Balance 820 ml Intake Oral 120 ml Other 800 ml Output Urine Total 0 ml Estimated Blood Loss 100 ml # Bowel Movements 0 Result Diagram: 01/28/18 1743 01/28/18 1743 Other Results Laboratory Tests Test 01/25/18 20:45 01/27/18 06:26 01/28/18 06:37 01/28/18 10:34 Vancomycin Level Trough 9.5 MCG/ML White Blood Count 10.1 TH/MM3 18.1 TH/MM3 Red Blood Count 4.41 MIL/MM3 4.68 MIL/MM3 Hemoglobin 12.9 GM/DL 13.2 GM/DL Hematocrit 37.8 % 39.8 % Mean Corpuscular Volume 85.7 FL 85.1 FL Mean Corpuscular Hemoglobin 29.1 PG 28.2 PG Mean Corpuscular Hemoglobin Concent 34.0 % 33.1 % Red Cell Distribution Width 14.0 % 14.3 % Platelet Count 442 TH/MM3 414 TH/MM3 Mean Platelet Volume 8.4 FL 8.1 FL Neutrophils (%) (Auto) 69.2 % 86.9 % Lymphocytes (%) (Auto) 16.8 % 4.5 % Monocytes (%) (Auto) 8.6 % 6.2 % Eosinophils (%) (Auto) 4.9 % 2.0 % Basophils (%) (Auto) 0.5 % 0.4 % Neutrophils # (Auto) 7.0 TH/MM3 15.7 TH/MM3 Lymphocytes # (Auto) 1.7 TH/MM3 0.8 TH/MM3 Monocytes # (Auto) 0.9 TH/MM3 1.1 TH/MM3 Eosinophils # (Auto) 0.5 TH/MM3 0.4 TH/MM3 Basophils # (Auto) 0.1 TH/MM3 0.1 TH/MM3 CBC Comment DIFF FINAL DIFF FINAL Differential Comment Blood Urea Nitrogen 15 MG/DL 13 MG/DL Creatinine 1.25 MG/DL 1.19 MG/DL 1.25 MG/DL Random Glucose 171 MG/DL 232 MG/DL Calcium Level 8.8 MG/DL 8.4 MG/DL Magnesium Level 1.8 MG/DL 1.8 MG/DL Sodium Level 135 MEQ/L 134 MEQ/L Potassium Level 3.9 MEQ/L 4.3 MEQ/L Chloride Level 101 MEQ/L 101 MEQ/L Carbon Dioxide Level 25.7 MEQ/L 24.6 MEQ/L Anion Gap 8 MEQ/L 8 MEQ/L Estimat Glomerular Filtration Rate 58 ML/MIN 62 ML/MIN 58 ML/MIN Test 01/28/18 15:57 01/28/18 17:43 01/28/18 18:00 Lactic Acid Level 2.2 mmol/L White Blood Count 15.1 TH/MM3 Red Blood Count 4.22 MIL/MM3 Hemoglobin 12.0 GM/DL Hematocrit 36.0 % Mean Corpuscular Volume 85.3 FL Mean Corpuscular Hemoglobin 28.3 PG Mean Corpuscular Hemoglobin Concent 33.2 % Red Cell Distribution Width 14.4 % Platelet Count 361 TH/MM3 Mean Platelet Volume 8.3 FL Neutrophils (%) (Auto) 82.2 % Lymphocytes (%) (Auto) 7.8 % Monocytes (%) (Auto) 7.8 % Eosinophils (%) (Auto) 1.5 % Basophils (%) (Auto) 0.7 % Neutrophils # (Auto) 12.4 TH/MM3 Lymphocytes # (Auto) 1.2 TH/MM3 Monocytes # (Auto) 1.2 TH/MM3 Eosinophils # (Auto) 0.2 TH/MM3 Basophils # (Auto) 0.1 TH/MM3 CBC Comment DIFF FINAL Differential Comment Blood Urea Nitrogen 14 MG/DL Creatinine 1.23 MG/DL Random Glucose 161 MG/DL Calcium Level 8.1 MG/DL Magnesium Level 1.8 MG/DL Sodium Level 136 MEQ/L Potassium Level 4.1 MEQ/L Chloride Level 103 MEQ/L Carbon Dioxide Level 22.5 MEQ/L Anion Gap 11 MEQ/L Estimat Glomerular Filtration Rate 59 ML/MIN Imaging Last 72 hours Impressions Scrotum Ultrasound 01/19/18 0000 Signed Impressions: Service Date/Time: Friday, January 19, 2018 20:47 - CONCLUSION: 1. Bilateral testicles have a normal appearance with intact flow by color Doppler. 2. Irregular shaped heterogeneous echotexture abnormality in the posterior scrotum measuring excess of 5 cm. Inder Campuzano MD Abdomen/Pelvis CT 01/19/18 0000 Signed Impressions: Service Date/Time: Friday, January 19, 2018 19:55 - CONCLUSION: 1. Induration of the subcutaneous soft tissues in the right perianal region without focal fluid collection. 2. Both collecting system and ureters are mildly dilated, but no calcified stones seen on either side. 3. Distended urinary bladder, similar to prior CT in 2000. Inder Campuzano MD Objective Remarks GENERAL: This is a well-nourished, well-developed patient, in no apparent distress. CARDIO: Regular RESP: CTA bilaterally. ABD: +BS, soft, non-tender, nondistended. EXT: No edema. Procedures pt underwent Incision and drainage perineal abscess and perirectal abscess on 01/22/[address] Guevara drainage and debridement of soft tissue of perineal and perirectal abscesses by Dr. Guevara and Exploration of scrotal wound with debridement by Yajaira 01/28/18 A/P Problem List: (1) Perirectal abscess ICD Codes: K61.1 - Rectal abscess Status: Acute Plan: - 62 y/o WM with DM who presented to the ED for perirectal abscess and pain/ swelling in scrotum. - Pt was first treated with Keflex on 01/13/18 for david-rectal abscess, then had I&D performed by Dr Grubbs on 01/15/18 and was reportedly placed on Bactrim for last few days. Cultures of abscess revealed group B Strep. He developed low grade fevers on 01/19 and complained of more swelling in scrotum with difficulty having BMs over the previous 2 days. - Was seen in gen surgery office on 01/19 and directed to ER for possible progression of abscess with possible scrotal abscess as well. - CT abd/pelvis (01/19/18) --> Induration of the subcutaneous soft tissues in the right perianal region without focal fluid collection. Both collecting system and ureters are mildly dilated, but no calcified stones seen on either side. Distended urinary bladder, similar to prior CT in 2000. - U/S scrotum (01/19/18) --> Bilateral testicles have a normal appearance with intact flow by color Doppler. Irregular shaped heterogeneous echotexture abnormality in the posterior scrotum measuring excess of 5 cm. - Urology consulted - General surgery following and pt underwent Incision and drainage perineal abscess and perirectal abscess on 01/22/[address] Guevara the procedure revealed large perineal abscess with large amt of pus drained which was communicating with perirectal abscess. - GS recommending leaving packing out and sitz baths - Check KUB today - Cont. Pericolace BID, MOM PRN, add Lactulose daily PRN - patient with hypotension and increasing WBC 01/28 concerns for worsening infection. ID consulted recommending: Continue Zosyn IV Continue Vanco IV (target 10-15) Start Clinda IV (for toxin neutralization effect in view of ongoing necrosis : black tissue seen from Rt scrotal area opening) Start Micafungin IV Follow intra op cultures - wound culture obtained 01/22 preliminary results reveal: Streptococcus group and lactobacillus - Lactic acid requested - 01/28/18 patient underwent drainage and debridement of soft tissue of perineal and perirectal abscesses by Dr. Guevara and Exploration of scrotal wound with debridement by Yajaira - will monitor patient in ICU for now (2) DM2 (diabetes mellitus, type 2) ICD Codes: E11.9 - Type 2 diabetes mellitus without complications Status: Chronic Plan: - BS are somewhat better controlled on higher Levemir dose - SSI increased to high dose on 01/21 - Levemir 15 units BID - Hold outpt meds (3) Urinary retention ICD Codes: R33.9 - Retention of urine, unspecified Plan: - Johnson catheter removed - Pt started on Flomax Assessment and Plan Patient examined. Assessment and plan formulated with Roro Ball PA-C. I agree with the above. Problem Qualifiers (1) DM2 (diabetes mellitus, type 2): Roro Ball Jan 28, 2018 19:24 Maxx Woo DO Jan 31, 2018 14:32
[2018-01-29] VITALS (12 sets, daily range): BP systolic 96–137; BP diastolic 52–78; PULSE 72–88; RESP 20–26; TEMP 98.3–99.1; O2SAT 92–97
[2018-01-29] MEDS: PIPERACIL-TAZO 3.375 GM PREMIX 50 ML IV SCH ×3 (00:06→15:56)
[2018-01-29 01:40] LABS: BILIRUBIN, URINE NEG (NEG); BLOOD, URINE NEG (NEG); GLUCOSE,URINE 300 mg/dL (NEG); KETONE, URINE NEG (NEG); MUCUS URINE FEW /lpf (OCC); NITRITE,URINE NEG (NEG); SQUAMOUS EPITHELIAL CELL URINE <1 /hpf (0-5); URINE COLOR YELLOW (YELLW/STRAW); URINE LEUKOCYTE ESTERASE NEG (NEG)
[2018-01-29] MEDS: HYDROmorphone HCL PF 2 MG/ML VIAL IV PRN ×2 (04:11→13:00)
[2018-01-29 05:28] LABS: HEMATOCRIT 32.6 % (39.0-51.0); HEMOGLOBIN 11.4 GM/DL (13.0-17.0); MEAN CELL VOLUME 84.7 FL (80.0-100.0); MEAN CORPUSCULAR HEMOGLOBIN 29.6 PG (27.0-34.0); MEAN CORPUSCULAR HGB CONC 34.9 % (32.0-36.0); MEAN PLATELET VOLUME 8.5 FL (7.0-11.0); PLATELET COUNT 347 TH/MM3 (150-450); RED BLOOD COUNT 3.85 MIL/MM3 (4.50-5.90); RED CELL DISTRIBUTION WIDTH 14.2 % (11.6-17.2); WHITE BLOOD COUNT 14.2 TH/MM3 (4.0-11.0)
[2018-01-29 05:58] LABS: BICARBONATE 22.3 MEQ/L (21.0-32.0); CALCIUM 8.2 MG/DL (8.5-10.1); CREATININE 1.08 MG/DL (0.60-1.30)
[2018-01-29] MEDS: CLINDAMYCIN 900 MG/NS PREMIX 50 ML IV SCH ×3 (06:36→22:04)
[2018-01-29] MEDS: SIMETHICONE 125 MG CHEWABLE TAB PO SCH ×3 (06:37→22:04)
[2018-01-29] MEDS: INSULIN ASPART SUPPLEMENTAL SCALE SQ SCH ×4 (08:00→21:00)
[2018-01-29 08:28] LABS: BANDS 5 % (0-6); LYMPHOCYTES 7 % (9-44); MONOCYTES 7 % (0-8); NEUTROPHIL # MANUAL DIFF 12.1 TH/MM3 (1.8-7.7); POLYS (SEG NEUTROPHILS) 80 % (16-70); TOXIC GRANULATION 1+ (NORMAL); TOXIC VACUOLATION PRESENT (NONE SEEN)
[2018-01-29] MEDS: INSULIN DETEMIR 100 UNITS/ML VIAL SQ SCH ×2 (09:16→21:00)
[2018-01-29] MEDS: PANTOPRAZOLE SODIUM 40 MG VIAL IV PUSH SCH ×2 (09:17→21:00)
[2018-01-29] MEDS: TAMSULOSIN HCL 0.4 MG CAP PO SCH (09:17)
[2018-01-29] MEDS: DOCUSATE SODIUM 50 MG/SENNA 8.6 MG TAB PO SCH ×2 (09:17→20:52)
[2018-01-29] MEDS: PRAVASTATIN SOD 40 MG TAB PO SCH (09:17)
[2018-01-29] MEDS: oxyCODONE/ACETAMINOPHEN 10 MG/325 MG TAB PO PRN ×2 (11:43→21:32)
[2018-01-29] MEDS: VANCOMYCIN 1,500 MG/NS 500 ML IV SCH ×2 (11:44)
[2018-01-29] MEDS ORDERED: PHARMACY ORDERED LAB ONE (11:45)
[2018-01-29] MEDS: MICAFUNGIN INJ 150 MG in SODIUM CHLORIDE 0.9% INJ 100 ML IV SCH (14:00)
--- NOTE | 2018-01-29 14:08 | HHI.PR ---
Subjective Subjective Notes He looks significantly better than yesterday. No confusion. Objective Vitals/I&O Vital Signs Date Time Temp Pulse Resp B/P (MAP) Pulse Ox O2 Delivery O2 Flow Rate FiO2 01/29/18 12:00 98.6 80 24 112/62 (79) 97 01/29/18 07:00 Room Air 01/28/18 19:00 3.00 Labs Laboratory Tests Test 01/28/18 15:57 01/28/18 17:43 01/28/18 18:00 01/29/18 01:21 Lactic Acid Level 2.2 White Blood Count 15.1 Red Blood Count 4.22 Hemoglobin 12.0 Hematocrit 36.0 Mean Corpuscular Volume 85.3 Mean Corpuscular Hemoglobin 28.3 Mean Corpuscular Hemoglobin Concent 33.2 Red Cell Distribution Width 14.4 Platelet Count 361 Mean Platelet Volume 8.3 Neutrophils (%) (Auto) 82.2 Lymphocytes (%) (Auto) 7.8 Monocytes (%) (Auto) 7.8 Eosinophils (%) (Auto) 1.5 Basophils (%) (Auto) 0.7 Neutrophils # (Auto) 12.4 Lymphocytes # (Auto) 1.2 Monocytes # (Auto) 1.2 Eosinophils # (Auto) 0.2 Basophils # (Auto) 0.1 CBC Comment DIFF FINAL Differential Comment Blood Urea Nitrogen 14 Creatinine 1.23 Random Glucose 161 Calcium Level 8.1 Magnesium Level 1.8 Sodium Level 136 Potassium Level 4.1 Chloride Level 103 Carbon Dioxide Level 22.5 Anion Gap 11 Estimat Glomerular Filtration Rate 59 Nasal Screen MRSA (PCR) MRSA NOT DETECTED Urine Color YELLOW Urine Turbidity CLEAR Urine pH 6.0 Urine Specific [place] 1.017 Urine Protein 30 Urine Glucose (UA) 300 Urine Ketones NEG Urine Occult Blood NEG Urine Nitrite NEG Urine Bilirubin NEG Urine Urobilinogen LESS THAN 2.0 Urine Leukocyte Esterase NEG Urine RBC 1 Urine WBC 8 Urine Squamous Epithelial Cells <1 Urine Mucus FEW Microscopic Urinalysis Comment CULT NOT INDICATED Test 01/29/18 05:12 White Blood Count 14.2 Red Blood Count 3.85 Hemoglobin 11.4 Hematocrit 32.6 Mean Corpuscular Volume 84.7 Mean Corpuscular Hemoglobin 29.6 Mean Corpuscular Hemoglobin Concent 34.9 Red Cell Distribution Width 14.2 Platelet Count 347 Mean Platelet Volume 8.5 CBC Comment AUTO DIFF Differential Total Cells Counted 100 Neutrophils % (Manual) 80 Band Neutrophils % 5 Lymphocytes % 7 Monocytes % 7 Eosinophils % 1 Neutrophils # (Manual) 12.1 Differential Comment FINAL DIFF MANUAL Toxic Granulation 1+ Toxic Vacuolation PRESENT Platelet Estimate NORMAL Platelet Morphology Comment NORMAL Blood Urea Nitrogen 13 Creatinine 1.08 Random Glucose 185 Calcium Level 8.2 Sodium Level 134 Potassium Level 4.4 Chloride Level 103 Carbon Dioxide Level 22.3 Anion Gap 9 Estimat Glomerular Filtration Rate 69 Lactic Acid Level 1.2 Date/Time Source Procedure Growth Status 01/29/18 10:15 Blood Peripheral Aerobic Blood Culture Pending Received 01/29/18 10:15 Blood Peripheral Anaerobic Blood Culture Pending Received 01/22/18 13:33 Wound Groin Gram Stain - Final Resulted 01/22/18 13:33 Wound Groin Wound Culture - Preliminary Resulted Narrative Exam Perineal and perirectal packing removed- no purulence. Carter drain remains in place. A/P Assessment and Plan S/p repeat I&D of perirectal and perineal abscesses/wounds yesterday. Wounds clean today. Packing removed and carter left in place. Sitz bath BID. Robby Guevara MD Jan 29, 2018 14:08
--- NOTE | 2018-01-29 14:42 | HHI.IDPN ---
Subjective Subjective Remarks is a 62 y/o. WM with DM presents to ER under direction of Dr Grubbs re: perirectal abscess and pain/swelling in scrotum. Patient reports being seen by his PCP on 01/13/18 and treated with Keflex abx 01/13/18 for scrotal abscess. He was referred to as outpatient. He had I&D performed by Dr Grubbs on 01/15/18 and was reportedly placed on Bactrim for last few days. Cultures of abscess reportedly done as outpatient revealed Strep. He had low grade fevers today and has noted more swelling in scrotum with difficulty urinating and having BMs over last 2 days. No vomiting, but + nausea. He was seen in gen surgery office and directed to ER for possible progression of abscess with possible scrotal abscess as well. CT abd/pelvis noted for induration in perineal area, but not obvious abscess. U/S scrotum reveal irreg structure appx 5 cm most c/w abscess per ER provider. Testicles appear wnl bilat. Pt placed on IV abx Zosyn IV and Vanco IV and pain meds. Patient was evaluated by General Surgery and I&D of abscesses in Perineum Rt buttock cheek and Rt scrotum performed. Due to persistent fevers and persistent yellowish drainage patient is being taken back to OR for possible joint Urology and General surgery evaluation. ID was consulted for evaluation and Mment of Sepsis (fever, leucocytosis and source of infection: Scrotal and perineal abscesses). Overnight events reviewed Transferred to ICU for observing due to hypotension. s/p debridement by Gen Surg and Urology combined. No fevers No rash No diarrhea Complains of bloating and constipation on constipation regimen. Urinating ok. Antibiotics Zosyn IV Clinda IV Vanco IV Micafungin IV Lines Line sites with no e.o infection Past Medical History Past Medical History DM 2 with nephropathy GERD Obesity HTN Scrotal abscess was being treated with oral bactrim Past Surgical History Appendectomy Neck Abscess I&D Allergies: Coded Allergies: No Known Allergies (Verified Allergy, Unknown, 01/20/18) morphine (Verified Adverse Reaction, Unknown, Hallucinations, 01/20/18) Objective . Vital Signs Date Time Temp Pulse Resp B/P (MAP) Pulse Ox O2 Delivery O2 Flow Rate FiO2 01/29/18 14:00 73 01/29/18 12:00 98.6 80 24 112/62 (79) 97 01/29/18 12:00 80 01/29/18 10:00 83 01/29/18 08:00 98.5 78 24 129/61 (83) 95 01/29/18 08:00 78 01/29/18 07:00 95 Room Air 01/29/18 06:00 72 01/29/18 04:00 80 01/29/18 04:00 98.6 80 26 116/63 (80) 95 01/29/18 02:00 82 01/29/18 00:00 78 01/29/18 00:00 98.6 78 24 96/52 (67) 92 01/28/18 20:00 98.4 80 21 80/44 (56) 97 01/28/18 19:00 97 Nasal Cannula 3.00 01/28/18 18:00 85 01/28/18 17:27 98.2 80 22 102/56 (71) 93 01/28/18 16:45 96 16 101/52 (68) 94 Nasal Cannula 2 01/28/18 16:30 98.2 92 16 108/56 (73) 92 Nasal Cannula 2 01/28/18 16:24 15 01/28/18 16:15 90 16 114/63 (80) 95 Nasal Cannula 3 01/28/18 16:00 89 16 108/61 (77) 95 Nasal Cannula 3 01/28/18 15:45 88 15 99/56 (70) 98 Nasal Cannula 4 01/28/18 15:35 98.1 85 15 92/50 (64) 96 Nasal Cannula 4 . Laboratory Tests Test 01/28/18 10:34 01/28/18 17:43 01/29/18 05:12 White Blood Count 18.1 TH/MM3 15.1 TH/MM3 14.2 TH/MM3 Red Blood Count 4.68 MIL/MM3 4.22 MIL/MM3 3.85 MIL/MM3 Hemoglobin 13.2 GM/DL 12.0 GM/DL 11.4 GM/DL Hematocrit 39.8 % 36.0 % 32.6 % Mean Corpuscular Volume 85.1 FL 85.3 FL 84.7 FL Mean Corpuscular Hemoglobin 28.2 PG 28.3 PG 29.6 PG Mean Corpuscular Hemoglobin Concent 33.1 % 33.2 % 34.9 % Red Cell Distribution Width 14.3 % 14.4 % 14.2 % Platelet Count 414 TH/MM3 361 TH/MM3 347 TH/MM3 Mean Platelet Volume 8.1 FL 8.3 FL 8.5 FL Neutrophils (%) (Auto) 86.9 % 82.2 % Lymphocytes (%) (Auto) 4.5 % 7.8 % Monocytes (%) (Auto) 6.2 % 7.8 % Eosinophils (%) (Auto) 2.0 % 1.5 % Basophils (%) (Auto) 0.4 % 0.7 % Neutrophils # (Auto) 15.7 TH/MM3 12.4 TH/MM3 Lymphocytes # (Auto) 0.8 TH/MM3 1.2 TH/MM3 Monocytes # (Auto) 1.1 TH/MM3 1.2 TH/MM3 Eosinophils # (Auto) 0.4 TH/MM3 0.2 TH/MM3 Basophils # (Auto) 0.1 TH/MM3 0.1 TH/MM3 CBC Comment DIFF FINAL DIFF FINAL AUTO DIFF Differential Comment FINAL DIFF MANUAL Differential Total Cells Counted 100 Neutrophils % (Manual) 80 % Band Neutrophils % 5 % Lymphocytes % 7 % Monocytes % 7 % Eosinophils % 1 % Neutrophils # (Manual) 12.1 TH/MM3 Toxic Granulation 1+ Toxic Vacuolation PRESENT Platelet Estimate NORMAL Platelet Morphology Comment NORMAL Laboratory Tests Test 01/28/18 06:37 01/28/18 10:34 01/28/18 15:57 01/28/18 17:43 Creatinine 1.19 MG/DL 1.25 MG/DL 1.23 MG/DL Estimat Glomerular Filtration Rate 62 ML/MIN 58 ML/MIN 59 ML/MIN Blood Urea Nitrogen 13 MG/DL 14 MG/DL Random Glucose 232 MG/DL 161 MG/DL Calcium Level 8.4 MG/DL 8.1 MG/DL Magnesium Level 1.8 MG/DL 1.8 MG/DL Sodium Level 134 MEQ/L 136 MEQ/L Potassium Level 4.3 MEQ/L 4.1 MEQ/L Chloride Level 101 MEQ/L 103 MEQ/L Carbon Dioxide Level 24.6 MEQ/L 22.5 MEQ/L Anion Gap 8 MEQ/L 11 MEQ/L Lactic Acid Level 2.2 mmol/L Test 01/29/18 05:12 Blood Urea Nitrogen 13 MG/DL Creatinine 1.08 MG/DL Random Glucose 185 MG/DL Calcium Level 8.2 MG/DL Sodium Level 134 MEQ/L Potassium Level 4.4 MEQ/L Chloride Level 103 MEQ/L Carbon Dioxide Level 22.3 MEQ/L Anion Gap 9 MEQ/L Estimat Glomerular Filtration Rate 69 ML/MIN Lactic Acid Level 1.2 mmol/L Microbiology Date/Time Source Procedure Growth Status 01/29/18 10:15 Blood Peripheral Aerobic Blood Culture Pending Received 01/29/18 10:15 Blood Peripheral Anaerobic Blood Culture Pending Received 01/29/18 10:05 Blood Peripheral Aerobic Blood Culture Pending Received 01/29/18 10:05 Blood Peripheral Anaerobic Blood Culture Pending Received 01/28/18 10:39 Blood Peripheral Aerobic Blood Culture - Preliminary NO GROWTH IN 1 DAY Resulted 01/28/18 10:39 Blood Peripheral Anaerobic Blood Culture - Preliminary NO GROWTH IN 1 DAY Resulted 01/28/18 10:34 Blood Peripheral Aerobic Blood Culture - Preliminary NO GROWTH IN 1 DAY Resulted 01/28/18 10:34 Blood Peripheral Anaerobic Blood Culture - Preliminary NO GROWTH IN 1 DAY Resulted Imaging Last Impressions Abdomen X-Ray 01/28/18 0600 Signed Impressions: Service Date/Time: Sunday, January 28, 2018 06:52 - CONCLUSION: 1. Persistent moderate proximal colonic stool. 2. No significant interval change. Carroll Colin MD Chest X-Ray 01/28/18 0000 Signed Impressions: Service Date/Time: Sunday, January 28, 2018 09:03 - CONCLUSION: Minimal bibasilar streakiness consistent with probable atelectasis. Torres Villa MD Scrotum Ultrasound 01/19/18 0000 Signed Impressions: Service Date/Time: Friday, January 19, 2018 20:47 - CONCLUSION: 1. Bilateral testicles have a normal appearance with intact flow by color Doppler. 2. Irregular shaped heterogeneous echotexture abnormality in the posterior scrotum measuring excess of 5 cm. Inder Campuzano MD Abdomen/Pelvis CT 01/19/18 0000 Signed Impressions: Service Date/Time: Friday, January 19, 2018 19:55 - CONCLUSION: 1. Induration of the subcutaneous soft tissues in the right perianal region without focal fluid collection. 2. Both collecting system and ureters are mildly dilated, but no calcified stones seen on either side. 3. Distended urinary bladder, similar to prior CT in 2000. Inder Campuzano MD Physical Exam GENERAL: This is a well-nourished, well-developed patient, in no apparent distress. SKIN: No rashes, ecchymoses or lesions. Cool and dry. HEAD: Atraumatic. Normocephalic. No temporal or scalp tenderness. EYES: Pupils equal round and reactive. Extraocular motions intact. No scleral icterus. No injection or drainage. ENT: Nose without bleeding, purulent drainage or septal hematoma. Throat without erythema, tonsillar hypertrophy or exudate. Uvula midline. Airway patent. NECK: Trachea midline. Supple, nontender, no meningeal signs. CARDIOVASCULAR: HS audible. RESPIRATORY: Clear to auscultation. Breath sounds equal bilaterally. No wheezes , rales, or rhonchi. GASTROINTESTINAL: Abdomen soft, non-tender, nondistended. MUSCULOSKELETAL: Extremities without clubbing, cyanosis, or edema. No joint tenderness, effusion, or edema noted. No calf tenderness. Negative Homans sign bilaterally. NEUROLOGICAL: Awake and alert. Non focal Scrotum: Right side with opening with purulent drainage and black appearing tissue could be pulled out. Rt buttock cheek opening with purulence noted as well. Erythema in perineal area and skin folds ? Fungal Intertrigo. Psych cooperative IV line sites with no e/o infection. Assessment & Plan Remarks Sepsis (fever, leucocytosis and source of infection: Scrotal and perineal abscesses). Scrotal and Perineal abscesses (likely secondary to local folliculitis). Patient works for [employer] in sales. DM 2 uncontrolled: infection Recs: Continue Zosyn IV Continue Vanco IV (target 10-15) (may be Dced if no MRSA or resistant strep) Continue Clinda IV (for toxin neutralization effect: may be discontinued on 01/30 am) DC micafungin IV Start oral diflucan for few days due to fungal infection in groin area. Follow intra op cultures Follow clinically Dw patient, and daughters in room: plan on deescalate antibiotics in am. I will be OOT from 01/30/2018 to 02/08/2018. Other ID MDs covering for me. Alesia Haile MD Jan 29, 2018 14:42
[2018-01-29] MEDS: NS + KCL 20 MEQ INJ 1,000 ML IV SCH ×2 (17:18→20:51)
--- NOTE | 2018-01-29 18:52 | HHI.PR ---
Subjective Remarks Patient feels better than yesterday Objective Vitals Vital Signs Date Time Temp Pulse Resp B/P (MAP) Pulse Ox O2 Delivery O2 Flow Rate FiO2 01/29/18 18:00 88 01/29/18 16:00 74 01/29/18 16:00 98.3 74 20 110/64 (79) 01/29/18 14:00 73 01/29/18 12:00 98.6 80 24 112/62 (79) 97 01/29/18 12:00 80 01/29/18 10:00 83 01/29/18 08:00 98.5 78 24 129/61 (83) 95 01/29/18 08:00 78 01/29/18 07:00 95 Room Air 01/29/18 06:00 72 01/29/18 04:00 80 01/29/18 04:00 98.6 80 26 116/63 (80) 95 01/29/18 02:00 82 01/29/18 00:00 78 01/29/18 00:00 98.6 78 24 96/52 (67) 92 01/28/18 20:00 98.4 80 21 80/44 (56) 97 01/28/18 19:00 97 Nasal Cannula 3.00 01/29/18 01/29/18 01/30/18 15:00 23:00 07:00 Intake Total 3100 ml Output Total 900 ml Balance 2200 ml Intake Oral 600 ml IV Total 2500 ml Output Urine Total 900 ml # Voids 4 # Bowel Movements 0 Result Diagram: 01/29/18 0512 01/29/18 0512 Other Results Laboratory Tests Test 01/27/18 06:26 01/28/18 06:37 01/28/18 10:34 01/28/18 15:57 White Blood Count 10.1 TH/MM3 18.1 TH/MM3 Red Blood Count 4.41 MIL/MM3 4.68 MIL/MM3 Hemoglobin 12.9 GM/DL 13.2 GM/DL Hematocrit 37.8 % 39.8 % Mean Corpuscular Volume 85.7 FL 85.1 FL Mean Corpuscular Hemoglobin 29.1 PG 28.2 PG Mean Corpuscular Hemoglobin Concent 34.0 % 33.1 % Red Cell Distribution Width 14.0 % 14.3 % Platelet Count 442 TH/MM3 414 TH/MM3 Mean Platelet Volume 8.4 FL 8.1 FL Neutrophils (%) (Auto) 69.2 % 86.9 % Lymphocytes (%) (Auto) 16.8 % 4.5 % Monocytes (%) (Auto) 8.6 % 6.2 % Eosinophils (%) (Auto) 4.9 % 2.0 % Basophils (%) (Auto) 0.5 % 0.4 % Neutrophils # (Auto) 7.0 TH/MM3 15.7 TH/MM3 Lymphocytes # (Auto) 1.7 TH/MM3 0.8 TH/MM3 Monocytes # (Auto) 0.9 TH/MM3 1.1 TH/MM3 Eosinophils # (Auto) 0.5 TH/MM3 0.4 TH/MM3 Basophils # (Auto) 0.1 TH/MM3 0.1 TH/MM3 CBC Comment DIFF FINAL DIFF FINAL Differential Comment Blood Urea Nitrogen 15 MG/DL 13 MG/DL Creatinine 1.25 MG/DL 1.19 MG/DL 1.25 MG/DL Random Glucose 171 MG/DL 232 MG/DL Calcium Level 8.8 MG/DL 8.4 MG/DL Magnesium Level 1.8 MG/DL 1.8 MG/DL Sodium Level 135 MEQ/L 134 MEQ/L Potassium Level 3.9 MEQ/L 4.3 MEQ/L Chloride Level 101 MEQ/L 101 MEQ/L Carbon Dioxide Level 25.7 MEQ/L 24.6 MEQ/L Anion Gap 8 MEQ/L 8 MEQ/L Estimat Glomerular Filtration Rate 58 ML/MIN 62 ML/MIN 58 ML/MIN Lactic Acid Level 2.2 mmol/L Test 01/28/18 17:43 01/28/18 18:00 01/29/18 01:21 01/29/18 05:12 White Blood Count 15.1 TH/MM3 14.2 TH/MM3 Red Blood Count 4.22 MIL/MM3 3.85 MIL/MM3 Hemoglobin 12.0 GM/DL 11.4 GM/DL Hematocrit 36.0 % 32.6 % Mean Corpuscular Volume 85.3 FL 84.7 FL Mean Corpuscular Hemoglobin 28.3 PG 29.6 PG Mean Corpuscular Hemoglobin Concent 33.2 % 34.9 % Red Cell Distribution Width 14.4 % 14.2 % Platelet Count 361 TH/MM3 347 TH/MM3 Mean Platelet Volume 8.3 FL 8.5 FL Neutrophils (%) (Auto) 82.2 % Lymphocytes (%) (Auto) 7.8 % Monocytes (%) (Auto) 7.8 % Eosinophils (%) (Auto) 1.5 % Basophils (%) (Auto) 0.7 % Neutrophils # (Auto) 12.4 TH/MM3 Lymphocytes # (Auto) 1.2 TH/MM3 Monocytes # (Auto) 1.2 TH/MM3 Eosinophils # (Auto) 0.2 TH/MM3 Basophils # (Auto) 0.1 TH/MM3 CBC Comment DIFF FINAL AUTO DIFF Differential Comment FINAL DIFF MANUAL Blood Urea Nitrogen 14 MG/DL 13 MG/DL Creatinine 1.23 MG/DL 1.08 MG/DL Random Glucose 161 MG/DL 185 MG/DL Calcium Level 8.1 MG/DL 8.2 MG/DL Magnesium Level 1.8 MG/DL Sodium Level 136 MEQ/L 134 MEQ/L Potassium Level 4.1 MEQ/L 4.4 MEQ/L Chloride Level 103 MEQ/L 103 MEQ/L Carbon Dioxide Level 22.5 MEQ/L 22.3 MEQ/L Anion Gap 11 MEQ/L 9 MEQ/L Estimat Glomerular Filtration Rate 59 ML/MIN 69 ML/MIN Nasal Screen MRSA (PCR) MRSA NOT DETECTED Urine Color YELLOW Urine Turbidity CLEAR Urine pH 6.0 Urine Specific [place] 1.017 Urine Protein 30 mg/dL Urine Glucose (UA) 300 mg/dL Urine Ketones NEG mg/dL Urine Occult Blood NEG Urine Nitrite NEG Urine Bilirubin NEG Urine Urobilinogen LESS THAN 2.0 MG/DL Urine Leukocyte Esterase NEG Urine RBC 1 /hpf Urine WBC 8 /hpf Urine Squamous Epithelial Cells <1 /hpf Urine Mucus FEW /lpf Microscopic Urinalysis Comment CULT NOT INDICATED Differential Total Cells Counted 100 Neutrophils % (Manual) 80 % Band Neutrophils % 5 % Lymphocytes % 7 % Monocytes % 7 % Eosinophils % 1 % Neutrophils # (Manual) 12.1 TH/MM3 Toxic Granulation 1+ Toxic Vacuolation PRESENT Platelet Estimate NORMAL Platelet Morphology Comment NORMAL Lactic Acid Level 1.2 mmol/L Imaging Last 72 hours Impressions Scrotum Ultrasound 01/19/18 Signed Impressions: Service Date/Time: Friday, January 19, 2018 20:47 - CONCLUSION: 1. Bilateral testicles have a normal appearance with intact flow by color Doppler. 2. Irregular shaped heterogeneous echotexture abnormality in the posterior scrotum measuring excess of 5 cm. Inder Campuzano MD Abdomen/Pelvis CT 3/5/18 0000 Signed Impressions: Service Date/Time: Friday, January 19, 2018 19:55 - CONCLUSION: 1. Induration of the subcutaneous soft tissues in the right perianal region without focal fluid collection. 2. Both collecting system and ureters are mildly dilated, but no calcified stones seen on either side. 3. Distended urinary bladder, similar to prior CT in 2000. Inder Campuzano MD Objective Remarks GENERAL: This is a well-nourished, well-developed patient, in no apparent distress. CARDIO: Regular RESP: CTA bilaterally. ABD: +BS, soft, non-tender, nondistended. EXT: No edema. Procedures pt underwent Incision and drainage perineal abscess and perirectal abscess on 01/22/[address] Guevara drainage and debridement of soft tissue of perineal and perirectal abscesses by Dr. Guevara and Exploration of scrotal wound with debridement by Yajaira 01/28/18 A/P Problem List: (1) Perirectal abscess ICD Codes: K61.1 - Rectal abscess Status: Acute Plan: - 62 y/o WM with DM who presented to the ED for perirectal abscess and pain/ swelling in scrotum. - Pt was first treated with Keflex on 01/13/18 for david-rectal abscess, then had I&D performed by Dr Grubbs on 01/15/18 and was reportedly placed on Bactrim for last few days. Cultures of abscess revealed group B Strep. He developed low grade fevers on 01/19 and complained of more swelling in scrotum with difficulty having BMs over the previous 2 days. - Was seen in gen surgery office on 01/19 and directed to ER for possible progression of abscess with possible scrotal abscess as well. - CT abd/pelvis (01/19/18) --> Induration of the subcutaneous soft tissues in the right perianal region without focal fluid collection. Both collecting system and ureters are mildly dilated, but no calcified stones seen on either side. Distended urinary bladder, similar to prior CT in 2001. - U/S scrotum (01/19/18) --> Bilateral testicles have a normal appearance with intact flow by color Doppler. Irregular shaped heterogeneous echotexture abnormality in the posterior scrotum measuring excess of 5 cm. - Urology consulted - General surgery following and pt underwent Incision and drainage perineal abscess and perirectal abscess on 01/22/[address] Guevara the procedure revealed large perineal abscess with large amt of pus drained which was communicating with perirectal abscess. - GS recommending leaving packing out and sitz baths - Check KUB today - Cont. Pericolace BID, MOM PRN, add Lactulose daily PRN - patient with hypotension and increasing WBC concerns for worsening infection. ID consulted recommending: Continue Zosyn IV Continue Vanco IV (target 10-15) (may be Dced if no MRSA or resistant strep) Continue Clinda IV (for toxin neutralization effect: may be discontinued on am) DC micafungin IV Start oral diflucan for few days due to fungal infection in groin area. - wound culture obtained 01/22 Heavy Normal skin sree consisting of Lactobacillus species, moderate growth Viridan streptococcus - Lactic acid (01/28) 2.2 -> (01/29) 1.5 - 01/28/18 patient underwent drainage and debridement of soft tissue of perineal and perirectal abscesses by Dr. Guevara and Exploration of scrotal wound with debridement by Yajaira - will transfer patient out of ICU (2) DM2 (diabetes mellitus, type 2) ICD Codes: E11.9 - Type 2 diabetes mellitus without complications Status: Chronic Plan: - BS are somewhat better controlled on higher Levemir dose - SSI increased to high dose on 01/21 - Levemir 15 units BID - Hold outpt meds (3) Urinary retention ICD Codes: R33.9 - Retention of urine, unspecified Plan: - Johnson catheter removed - Pt started on Flomax Problem Qualifiers (1) DM2 (diabetes mellitus, type 2): Roro Ball Jan 29, 2018 18:52
[2018-01-30] VITALS (10 sets, daily range): BP systolic 109–163; BP diastolic 70–95; PULSE 63–95; RESP 20–23; TEMP 97.7–100.3; O2SAT 95–98
[2018-01-30] MEDS: oxyCODONE/ACETAMINOPHEN 10 MG/325 MG TAB PO PRN ×4 (02:58→20:14)
[2018-01-30] MEDS: HYDROmorphone HCL PF 2 MG/ML VIAL IV PRN ×2 (04:42→09:50)
[2018-01-30] MEDS: CLINDAMYCIN 900 MG/NS PREMIX 50 ML IV SCH (04:42)
[2018-01-30] MEDS: VANCOMYCIN 1,500 MG/NS 500 ML IV SCH ×2 (05:10)
[2018-01-30] MEDS: SIMETHICONE 125 MG CHEWABLE TAB PO SCH ×3 (05:19→22:00)
[2018-01-30] MEDS ORDERED: PHARMACY ORDERED LAB ONE (05:45)
[2018-01-30] MEDS: NS + KCL 20 MEQ INJ 1,000 ML IV SCH ×3 (06:45→22:41)
[2018-01-30] MEDS: INSULIN ASPART SUPPLEMENTAL SCALE SQ SCH ×4 (07:55→21:00)
[2018-01-30] MEDS: PIPERACIL-TAZO 3.375 GM PREMIX 50 ML IV SCH ×4 (08:00→23:03)
[2018-01-30 08:44] LABS: HEMATOCRIT 35.4 % (39.0-51.0); HEMOGLOBIN 11.5 GM/DL (13.0-17.0); MEAN CELL VOLUME 85.4 FL (80.0-100.0); MEAN CORPUSCULAR HEMOGLOBIN 27.6 PG (27.0-34.0); MEAN CORPUSCULAR HGB CONC 32.4 % (32.0-36.0); PLATELET COUNT 360 TH/MM3 (150-450); RED BLOOD COUNT 4.14 MIL/MM3 (4.50-5.90); RED CELL DISTRIBUTION WIDTH 14.4 % (11.6-17.2); WHITE BLOOD COUNT 8.8 TH/MM3 (4.0-11.0)
[2018-01-30] MEDS ORDERED: LACTULOSE SYRUP 20 GM/30 ML CUP PO ONE (09:00)
[2018-01-30] MEDS: INSULIN DETEMIR 100 UNITS/ML VIAL SQ SCH ×2 (09:00→21:00)
[2018-01-30 09:22] LABS: BICARBONATE 21.8 MEQ/L (21.0-32.0); CALCIUM 8.3 MG/DL (8.5-10.1); CREATININE 1.13 MG/DL (0.60-1.30); MAGNESIUM 1.8 MG/DL (1.5-2.5)
[2018-01-30] MEDS: SODIUM CHLORIDE 0.9% FLUSH 10 ML FLUSH IV FLUSH PRN (09:51)
[2018-01-30] MEDS: DOCUSATE SODIUM 50 MG/SENNA 8.6 MG TAB PO SCH ×2 (09:51→21:00)
[2018-01-30] MEDS: TAMSULOSIN HCL 0.4 MG CAP PO SCH (09:51)
[2018-01-30] MEDS: PANTOPRAZOLE SODIUM 40 MG VIAL IV PUSH SCH ×2 (09:51→20:14)
[2018-01-30] MEDS: PRAVASTATIN SOD 40 MG TAB PO SCH (09:51)
[2018-01-30 09:53] LABS: BANDS 2 % (0-6); BASOPHILS 1 % (0-2); LYMPHOCYTES 20 % (9-44); MONOCYTES 6 % (0-8); NEUTROPHIL # MANUAL DIFF 5.5 TH/MM3 (1.8-7.7); POLYS (SEG NEUTROPHILS) 61 % (16-70); TOXIC VACUOLATION PRESENT (NONE SEEN)
--- NOTE | 2018-01-30 09:54 | RADRPT ---
EXAM DATE/TIME: 01/30/2018 09:12 [facility] COMPARISON: CHEST SINGLE AP, January 28, 2018, 9:03. INDICATIONS : Constipation with abdominal distention MEDICAL HISTORY : None. SURGICAL HISTORY : Appendectomy. ENCOUNTER: Subsequent ACUITY: 1 week PAIN SCORE: 1/10 LOCATION: Bilateral abdomen FINDINGS: There is elevation of the right hemidiaphragm. The bowel gas pattern is within normal limits. No free air is seen. No findings to indicate bowel structure are present. There are degenerative changes in the lower lumbar spine. CONCLUSION: 1. There is a moderate amount of stool within the colon. KUB is otherwise within normal limits. Carlos Saldaña MD on January 30, 2018 at 9:50 Board Certified Radiologist. This report was verified electronically.
--- NOTE | 2018-01-30 11:06 | HHI.PR ---
Subjective Subjective Notes He is feeling SOB easily. Has been up in chair. Objective Vitals/I&O Vital Signs Date Time Temp Pulse Resp B/P (MAP) Pulse Ox O2 Delivery O2 Flow Rate FiO2 01/30/18 10:22 80 01/30/18 08:00 99.0 20 121/72 (88) 98 Automatic Cuff 01/30/18 07:39 Nasal Cannula 4.00 Labs Laboratory Tests Test 01/30/18 05:00 01/30/18 07:25 Vancomycin Level Trough 11.7 White Blood Count 8.8 Red Blood Count 4.14 Hemoglobin 11.5 Hematocrit 35.4 Mean Corpuscular Volume 85.4 Mean Corpuscular Hemoglobin 27.6 Mean Corpuscular Hemoglobin Concent 32.4 Red Cell Distribution Width 14.4 Platelet Count 360 Mean Platelet Volume 9.0 CBC Comment AUTO DIFF Differential Total Cells Counted 100 Neutrophils % (Manual) 61 Band Neutrophils % 2 Lymphocytes % 20 Monocytes % 6 Eosinophils % 10 Basophils % 1 Neutrophils # (Manual) 5.5 Differential Comment FINAL DIFF MANUAL Toxic Vacuolation PRESENT Platelet Estimate NORMAL Platelet Morphology Comment NORMAL Blood Urea Nitrogen 12 Creatinine 1.13 Random Glucose 130 Calcium Level 8.3 Magnesium Level 1.8 Sodium Level 137 Potassium Level 4.0 Chloride Level 107 Carbon Dioxide Level 21.8 Anion Gap 8 Estimat Glomerular Filtration Rate 66 Date/Time Source Procedure Growth Status 01/29/18 10:15 Blood Peripheral Aerobic Blood Culture Pending Received 01/29/18 10:15 Blood Peripheral Anaerobic Blood Culture Pending Received 01/22/18 13:33 Wound Groin Gram Stain - Final Complete 01/22/18 13:33 Wound Groin Wound Culture - Final Complete Narrative Exam Perineal and perirectal wounds evaluated- mild exudate, no erythema or significant purulence, overall improved A/P Assessment and Plan S/p repeat I&D of perirectal and perineal abscesses/wounds yesterday. Wounds clean today. Sitz bath BID. Consult PT as he is deconditioned. Needs to ambulate at least twice daily. D/w Jessica his nurse. From my standpoint could be discharged possibly tomorrow if WBC remains normal on outpatient antibiotics. Would need to continue at least twice daily sitz baths and f/u with me next Friday. Ismael,Rboby POST Jan 30, 2018 11:06
--- NOTE | 2018-01-30 13:12 | HHI.PR ---
Subjective Remarks Patient reports SBO worse with exertion Objective Vitals Vital Signs Date Time Temp Pulse Resp B/P (MAP) Pulse Ox O2 Delivery O2 Flow Rate FiO2 01/30/18 12:25 78 01/30/18 12:00 98.4 95 22 163/95 (117) 95 01/30/18 10:22 80 01/30/18 08:00 99.0 63 20 121/72 (88) 98 Automatic Cuff 01/30/18 07:39 Nasal Cannula 4.00 01/30/18 04:00 Nasal Cannula 4.00 01/30/18 04:00 70 01/30/18 04:00 98.0 68 23 138/85 (102) 97 01/30/18 00:09 100.3 75 22 109/70 (83) 96 01/30/18 00:00 83 01/30/18 00:00 Room Air 01/29/18 20:38 99.1 84 21 137/78 (97) 95 01/29/18 20:00 81 01/29/18 20:00 Room Air 01/29/18 18:00 88 01/29/18 16:00 74 01/29/18 16:00 98.3 74 20 110/64 (79) 01/29/18 14:00 73 01/30/18 01/30/18 01/31/18 15:00 23:00 07:00 Intake Total 125 ml Balance 125 ml IV Total 125 ml Result Diagram: 01/30/18 0725 01/30/18 0725 Imaging Last 72 hours Impressions Scrotum Ultrasound 01/19/18 0000 Signed Impressions: Service Date/Time: Friday, January 19, 2018 20:47 - CONCLUSION: 1. Bilateral testicles have a normal appearance with intact flow by color Doppler. 2. Irregular shaped heterogeneous echotexture abnormality in the posterior scrotum measuring excess of 5 cm. Inder Campuzano MD Abdomen/Pelvis CT 01/19/18 0000 Signed Impressions: Service Date/Time: Friday, January 19, 2018 19:55 - CONCLUSION: 1. Induration of the subcutaneous soft tissues in the right perianal region without focal fluid collection. 2. Both collecting system and ureters are mildly dilated, but no calcified stones seen on either side. 3. Distended urinary bladder, similar to prior CT in 2000. Inder Campuzano MD Objective Remarks GENERAL: This is a well-nourished, well-developed patient, in no apparent distress. CARDIO: Regular RESP: faint crackles bilateral bases ABD: +BS, soft, non-tender, nondistended. EXT: BLE 1+ edema Procedures pt underwent Incision and drainage perineal abscess and perirectal abscess on 01/22/[address] Guevara drainage and debridement of soft tissue of perineal and perirectal abscesses by Dr. Guevara and Exploration of scrotal wound with debridement by Yajaira 01/28/18 A/P Problem List: (1) Perirectal abscess ICD Codes: K61.1 - Rectal abscess Status: Acute Plan: - 62 y/o WM with DM who presented to the ED for perirectal abscess and pain/ swelling in scrotum. - Pt was first treated with Keflex on 01/13/18 for david-rectal abscess, then had I&D performed by Dr Grubbs on 01/15/18 and was reportedly placed on Bactrim for last few days. Cultures of abscess revealed group B Strep. He developed low grade fevers on 01/19 and complained of more swelling in scrotum with difficulty having BMs over the previous 2 days. - Was seen in gen surgery office on 01/19 and directed to ER for possible progression of abscess with possible scrotal abscess as well. - CT abd/pelvis (01/19/18) --> Induration of the subcutaneous soft tissues in the right perianal region without focal fluid collection. Both collecting system and ureters are mildly dilated, but no calcified stones seen on either side. Distended urinary bladder, similar to prior CT in 2000. - U/S scrotum (01/19/18) --> Bilateral testicles have a normal appearance with intact flow by color Doppler. Irregular shaped heterogeneous echotexture abnormality in the posterior scrotum measuring excess of 5 cm. - Urology consulted - General surgery following and pt underwent Incision and drainage perineal abscess and perirectal abscess on 01/22/[address] Guevara the procedure revealed large perineal abscess with large amt of pus drained which was communicating with perirectal abscess. - GS recommending leaving packing out and sitz baths - Check KUB today - Cont. Pericolace BID, MOM PRN, add Lactulose daily PRN - patient with hypotension and increasing WBC concerns for worsening infection. ID consulted recommending: Continue Zosyn IV Continue Vanco IV (target 10-15) (may be Dced if no MRSA or resistant strep) Continue Clinda IV (for toxin neutralization effect: may be discontinued on am) DC micafungin IV Start oral diflucan for few days due to fungal infection in groin area. - wound culture obtained 01/22 Heavy Normal skin sree consisting of Lactobacillus species, moderate growth Viridan streptococcus - Lactic acid (01/28) 2.2 -> (01/29) 1.5 - 01/28/18 patient underwent drainage and debridement of soft tissue of perineal and perirectal abscesses by Dr. Guevara and Exploration of scrotal wound with debridement by Yajaira - cleared for DC tomorrow per general surgery - awaiting ID final recommendations (2) DM2 (diabetes mellitus, type 2) ICD Codes: E11.9 - Type 2 diabetes mellitus without complications Status: Chronic Plan: - BS are somewhat better controlled on higher Levemir dose - SSI increased to high dose on 01/21 - Levemir 15 units BID - Hold outpt meds (3) Urinary retention ICD Codes: R33.9 - Retention of urine, unspecified Plan: - Johnson catheter removed - Pt started on Flomax - patient now voiding continue Flomax (4) Constipation ICD Codes: K59.00 - Constipation, unspecified Status: Resolved Plan: Patient reports constipation + flatus, + bowel sounds KUB (01/30) Moderate amount of stool within the colon, otherwise within normal limits continue david-Colace 2 tablets BID fleets enema today (5) SOB (shortness of breath) ICD Codes: R06.02 - Shortness of breath Plan: Patient had hypotension 01/28- received aggressive fluids Now patient with SOB and BLE edema Patient also on 2L oxygen via NC - wean as tolerated CXR requested Lasix 40 mg IV x1 monitor Assessment and Plan Patient examined. Assessment and plan formulated with Roro Ball PA-C. I agree with the above. anticipate d/c to home with [facility] 01/31 complete course of PO antibiotics per ID recommendations. Problem Qualifiers (1) DM2 (diabetes mellitus, type 2): Roro Ball Jan 30, 2018 13:12 Maxx Woo DO Jan 31, 2018 14:33
[2018-01-30] MEDS ORDERED: FUROSEMIDE 40 MG/4 ML VIAL IV PUSH ONE (13:15)
[2018-01-30] MEDS ORDERED: POTASSIUM CHLORIDE 20 MEQ CONTROLLED RELEASE TAB PO ONE (13:15)
[2018-01-30] MEDS ORDERED: SOD PHOSPHATE/SOD BIPHOSPHATE (ADULT) ENEMA 133ML RECTAL ONE (13:15)
[2018-01-30] MEDS ORDERED: MAGNESIUM CITRATE SOLN 300 ML BTL PO ONE (13:30)
--- NOTE | 2018-01-30 13:46 | HHI.IDPN ---
Subjective Subjective Remarks ID COVERAGE is a 62 y/o. WM with DM presents to ER under direction of Dr Grubbs re: perirectal abscess and pain/swelling in scrotum. Patient reports being seen by his PCP on 01/13/18 and treated with Keflex abx 01/13/18 for scrotal abscess. He was referred to as outpatient. He had I&D performed by Dr Grubbs on 01/15/18 and was reportedly placed on Bactrim for last few days. Cultures of abscess reportedly done as outpatient revealed Strep. He had low grade fevers today and has noted more swelling in scrotum with difficulty urinating and having BMs over last 2 days. No vomiting, but + nausea. He was seen in gen surgery office and directed to ER for possible progression of abscess with possible scrotal abscess as well. CT abd/pelvis noted for induration in perineal area, but not obvious abscess. U/S scrotum reveal irreg structure appx 5 cm most c/w abscess per ER provider. Testicles appear wnl bilat. Pt placed on IV abx Zosyn IV and Vanco IV and pain meds. Patient was evaluated by General Surgery and I&D of abscesses in Perineum Rt buttock cheek and Rt scrotum performed. Due to persistent fevers and persistent yellowish drainage patient is being taken back to OR for possible joint Urology and General surgery evaluation. ID was consulted for evaluation and Mment of Sepsis (fever, leucocytosis and source of infection: Scrotal and perineal abscesses). Notes reviewed Patient is out of ICU Had one low grade temps at midnight BP good WBC down to normal Surgery notes reviewed - wound better; cleared for D/C tomorrow Antibiotics Zosyn IV Vanco IV Current Medications Medications (Trade) Dose Ordered Sig/Laila Route Start Time Stop Time Status Last Admin (NS Flush) 2 ml UNSCH PRN IV FLUSH 01/19/18 19:30 01/30/18 09:51 Pharmacy Profile Note 0 ml @ 0 mls/hr UNSCH OTHER 01/20/18 00:00 Piperacillin Sod/ Tazobactam Sod 50 ml @ 100 mls/hr Q8H IV 01/20/18 00:00 01/30/18 08:00 (Zofran Inj) 4 mg Q6HR PRN IV PUSH 01/20/18 00:00 (Pravachol) 40 mg DAILY PO 01/20/18 09:00 01/30/18 09:51 (Dilaudid Pf Inj) 1 mg Q3H PRN IV 01/20/18 01:45 01/30/18 09:50 (Thorazine) 25 mg Q8H PRN PO 01/20/18 09:15 01/23/18 00:13 (Korina-Colace) 2 tab BID PO 01/20/18 09:15 01/30/18 09:51 (Flomax) 0.4 mg DAILY PO 01/20/18 14:00 01/30/18 09:51 (Milk Of Magnesia Liq) 30 ml DAILY PRN PO 01/20/18 14:30 01/27/18 20:43 (NovoLOG SUPPLEMENTAL SCALE) 1 ACHS SLIDING SCALE SQ 01/21/18 12:00 01/29/18 21:00 (D50w (Vial) Inj) 50 ml UNSCH PRN IV PUSH 01/21/18 11:45 (Glucagon Inj) 1 mg UNSCH PRN OTHER 01/21/18 11:45 (Phazyme Chew) 125 mg Q8HR PO 01/22/18 14:00 01/30/18 13:37 (Protonix Inj) 40 mg Q12HR IV PUSH 01/22/18 10:00 01/30/18 09:51 (Levemir Inj) 15 units Q12HR SQ 01/25/18 21:00 01/29/18 21:00 (Percocet 10-325 Mg) 1 tab Q4H PRN PO 01/25/18 13:30 01/30/18 12:11 Vancomycin HCl 1500 mg/Sodium Chloride 515 ml @ 257.5 mls/ hr Q18H IV 01/26/18 12:00 01/30/18 05:10 (Lactulose Liq) 30 ml DAILY PRN PO 01/27/18 14:30 (Tylenol) 325 mg Q4H PRN PO 01/28/18 09:00 01/28/18 08:35 Potassium Chloride/Sodium Chloride 1,000 ml @ 125 mls/hr Q8H IV 01/28/18 14:45 01/29/18 17:18 Lines Line sites with no e.o infection Past Medical History Past Medical History DM 2 with nephropathy GERD Obesity HTN Scrotal abscess was being treated with oral bactrim Past Surgical History Appendectomy Neck Abscess I&D Allergies: Coded Allergies: No Known Allergies (Verified Allergy, Unknown, 01/20/18) morphine (Verified Adverse Reaction, Unknown, Hallucinations, 01/20/18) Objective . Vital Signs Date Time Temp Pulse Resp B/P (MAP) Pulse Ox O2 Delivery O2 Flow Rate FiO2 01/30/18 12:25 78 01/30/18 12:00 98.4 95 22 163/95 (117) 95 01/30/18 10:22 80 01/30/18 08:00 99.0 63 20 121/72 (88) 98 Automatic Cuff 01/30/18 07:39 Nasal Cannula 4.00 01/30/18 04:00 Nasal Cannula 4.00 01/30/18 04:00 70 01/30/18 04:00 98.0 68 23 138/85 (102) 97 01/30/18 00:09 100.3 75 22 109/70 (83) 96 01/30/18 00:00 83 01/30/18 00:00 Room Air 01/29/18 20:38 99.1 84 21 137/78 (97) 95 01/29/18 20:00 81 01/29/18 20:00 Room Air 01/29/18 18:00 88 01/29/18 16:00 74 01/29/18 16:00 98.3 74 20 110/64 (79) 01/29/18 14:00 73 01/30/18 01/30/18 01/31/18 15:00 23:00 07:00 Intake Total 125 ml Balance 125 ml IV Total 125 ml . Laboratory Tests Test 01/28/18 17:43 01/29/18 05:12 01/30/18 07:25 White Blood Count 15.1 TH/MM3 14.2 TH/MM3 8.8 TH/MM3 Red Blood Count 4.22 MIL/MM3 3.85 MIL/MM3 4.14 MIL/MM3 Hemoglobin 12.0 GM/DL 11.4 GM/DL 11.5 GM/DL Hematocrit 36.0 % 32.6 % 35.4 % Mean Corpuscular Volume 85.3 FL 84.7 FL 85.4 FL Mean Corpuscular Hemoglobin 28.3 PG 29.6 PG 27.6 PG Mean Corpuscular Hemoglobin Concent 33.2 % 34.9 % 32.4 % Red Cell Distribution Width 14.4 % 14.2 % 14.4 % Platelet Count 361 TH/MM3 347 TH/MM3 360 TH/MM3 Mean Platelet Volume 8.3 FL 8.5 FL 9.0 FL Neutrophils (%) (Auto) 82.2 % Lymphocytes (%) (Auto) 7.8 % Monocytes (%) (Auto) 7.8 % Eosinophils (%) (Auto) 1.5 % Basophils (%) (Auto) 0.7 % Neutrophils # (Auto) 12.4 TH/MM3 Lymphocytes # (Auto) 1.2 TH/MM3 Monocytes # (Auto) 1.2 TH/MM3 Eosinophils # (Auto) 0.2 TH/MM3 Basophils # (Auto) 0.1 TH/MM3 CBC Comment DIFF FINAL AUTO DIFF AUTO DIFF Differential Comment FINAL DIFF MANUAL FINAL DIFF MANUAL Differential Total Cells Counted 100 100 Neutrophils % (Manual) 80 % 61 % Band Neutrophils % 5 % 2 % Lymphocytes % 7 % 20 % Monocytes % 7 % 6 % Eosinophils % 1 % 10 % Neutrophils # (Manual) 12.1 TH/MM3 5.5 TH/MM3 Toxic Granulation 1+ Toxic Vacuolation PRESENT PRESENT Platelet Estimate NORMAL NORMAL Platelet Morphology Comment NORMAL NORMAL Basophils % 1 % Laboratory Tests Test 01/28/18 15:57 01/28/18 17:43 01/29/18 05:12 01/30/18 07:25 Lactic Acid Level 2.2 mmol/L 1.2 mmol/L Blood Urea Nitrogen 14 MG/DL 13 MG/DL 12 MG/DL Creatinine 1.23 MG/DL 1.08 MG/DL 1.13 MG/DL Random Glucose 161 MG/DL 185 MG/DL 130 MG/DL Calcium Level 8.1 MG/DL 8.2 MG/DL 8.3 MG/DL Magnesium Level 1.8 MG/DL 1.8 MG/DL Sodium Level 136 MEQ/L 134 MEQ/L 137 MEQ/L Potassium Level 4.1 MEQ/L 4.4 MEQ/L 4.0 MEQ/L Chloride Level 103 MEQ/L 103 MEQ/L 107 MEQ/L Carbon Dioxide Level 22.5 MEQ/L 22.3 MEQ/L 21.8 MEQ/L Anion Gap 11 MEQ/L 9 MEQ/L 8 MEQ/L Estimat Glomerular Filtration Rate 59 ML/MIN 69 ML/MIN 66 ML/MIN Microbiology Date/Time Source Procedure Growth Status 01/29/18 10:15 Blood Peripheral Aerobic Blood Culture - Preliminary NO GROWTH IN 1 DAY Resulted 01/29/18 10:15 Blood Peripheral Anaerobic Blood Culture - Preliminary NO GROWTH IN 1 DAY Resulted 01/29/18 10:05 Blood Peripheral Aerobic Blood Culture - Preliminary NO GROWTH IN 1 DAY Resulted 01/29/18 10:05 Blood Peripheral Anaerobic Blood Culture - Preliminary NO GROWTH IN 1 DAY Resulted 01/28/18 10:39 Blood Peripheral Aerobic Blood Culture - Preliminary NO GROWTH IN 2 DAYS Resulted 01/28/18 10:39 Blood Peripheral Anaerobic Blood Culture - Preliminary NO GROWTH IN 2 DAYS Resulted 01/28/18 10:34 Blood Peripheral Aerobic Blood Culture - Preliminary NO GROWTH IN 2 DAYS Resulted 01/28/18 10:34 Blood Peripheral Anaerobic Blood Culture - Preliminary NO GROWTH IN 2 DAYS Resulted Imaging Last Impressions Abdomen X-Ray 01/28/18 0600 Signed Impressions: Service Date/Time: Sunday, January 28, 2018 06:52 - CONCLUSION: 1. Persistent moderate proximal colonic stool. 2. No significant interval change. Carroll Colin MD Chest X-Ray 01/28/18 0000 Signed Impressions: Service Date/Time: Sunday, January 28, 2018 09:03 - CONCLUSION: Minimal bibasilar streakiness consistent with probable atelectasis. Torres Villa MD Scrotum Ultrasound 01/19/18 0000 Signed Impressions: Service Date/Time: Friday, January 19, 2018 20:47 - CONCLUSION: 1. Bilateral testicles have a normal appearance with intact flow by color Doppler. 2. Irregular shaped heterogeneous echotexture abnormality in the posterior scrotum measuring excess of 5 cm. Inder Campuzano MD Abdomen/Pelvis CT 01/19/18 0000 Signed Impressions: Service Date/Time: Friday, January 19, 2018 19:55 - CONCLUSION: 1. Induration of the subcutaneous soft tissues in the right perianal region without focal fluid collection. 2. Both collecting system and ureters are mildly dilated, but no calcified stones seen on either side. 3. Distended urinary bladder, similar to prior CT in 2000. Inder Campuzano MD Physical Exam GENERAL: awake and alert, in no apparent distress. SKIN: No rashes, ecchymoses or lesions. Cool and dry. EYES: Pupils equal round and reactive. Extraocular motions intact. No scleral icterus. No injection or drainage. ENT: Nose without bleeding, purulent drainage or septal hematoma. Moist mucosa, no thrush NECK: Trachea midline. Supple, nontender, no meningeal signs. CARDIOVASCULAR: HS audible. RESPIRATORY: Clear to auscultation. Breath sounds equal bilaterally. No wheezes , rales, or rhonchi. GASTROINTESTINAL: Abdomen soft, non-tender, nondistended. MUSCULOSKELETAL: Extremities without clubbing, cyanosis, or edema. No joint tenderness, effusion, or edema noted. No calf tenderness. Negative Homans sign bilaterally. NEUROLOGICAL: Awake and alert. Non focal Dressing in place in scrotum and perineal area, with some exudate, no necrotic tissue Improving erythema R groin, L still with more redness Psych cooperative IV line sites with no e/o infection. Assessment & Plan Remarks Sepsis (fever, leucocytosis and source of infection: Scrotal and perineal abscesses). Scrotal and Perineal abscesses (likely secondary to local folliculitis). Patient works for [employer] in sales. DM 2 uncontrolled: infection Recs: Continue Zosyn IV Stop vanco Diflucan If no fever overnight, ok to D/C tomorrow: Augmentin 500 TIDF x 14 days Diflucan 100 po daily x 7 days Wound care per surgery Monitor temps Monitor progress Explained plan to the patient Veronica Araujo MD Jan 30, 2018 13:46
[2018-01-30] MEDS: FLUCONAZOLE 100 MG TAB PO SCH (14:00)
--- NOTE | 2018-01-30 14:11 | RADRPT ---
EXAM DATE/TIME: 01/30/2018 13:10 [facility] COMPARISON: CHEST SINGLE AP, January 28, 2018, 9:03. INDICATIONS : Shortness of breath. MEDICAL HISTORY : Hypertension. Diabetes mellitus type 2. SURGICAL HISTORY : Appendectomy. ENCOUNTER: Subsequent ACUITY: 1 day PAIN SCORE: 0/10 LOCATION: Bilateral chest FINDINGS: Bibasilar streakiness is noted consistent with atelectasis and/or infiltrates. Clinical correlation i s recommended. The heart is enlarged. There is elevation of the right hemidiaphragm. CONCLUSION: 1. Bibasilar streakiness consistent with atelectasis assess for infiltrates. Clinical correlation is recommended. 2. Cardiomegaly. 3. Elevation of the right hemidiaphragm. Torres Villa MD on January 30, 2018 at 14:01 Board Certified Radiologist. This report was verified electronically.
[2018-01-31] VITALS (7 sets, daily range): BP systolic 98–175; BP diastolic 60–84; PULSE 57–82; RESP 20–21; TEMP 97.9–98.4; O2SAT 95–98
[2018-01-31] MEDS: NS + KCL 20 MEQ INJ 1,000 ML IV SCH ×3 (01:21→22:45)
[2018-01-31] MEDS: oxyCODONE/ACETAMINOPHEN 10 MG/325 MG TAB PO PRN ×3 (03:26→21:03)
[2018-01-31] MEDS: SIMETHICONE 125 MG CHEWABLE TAB PO SCH ×3 (04:44→21:04)
--- NOTE | 2018-01-31 08:23 | RADRPT ---
EXAM DATE/TIME: 01/31/2018 08:06 [facility] COMPARISON: CHEST PA & LAT, December 24, 2017, 19:36. INDICATIONS : Shortness of breath. MEDICAL HISTORY : Hypertension. Diabetes mellitus type 2. SURGICAL HISTORY : Appendectomy. ENCOUNTER: Subsequent ACUITY: 2 days PAIN SCORE: 0/10 LOCATION: Bilateral chest FINDINGS: PA lateral views of the chest demonstrate hypoinflation of the right hemithorax with elevation of the right hemidiaphragm which is new and right basilar atelectasis. The left hemithorax is clear. Heart size is normal. Pulmonary vasculature is normal. Osseous structures appear intact.. CONCLUSION: The patient of the right hemidiaphragm with adjacent compressive atelectasis. Consider further evalua tion with CT to evaluate for etiology of diaphragmatic elevation Rachael Browning MD on January 31, 2018 at 8:20 Board Certified Radiologist. This report was verified electronically.
--- NOTE | 2018-01-31 08:25 | RADRPT ---
EXAM DATE/TIME: 01/31/2018 08:10 [facility] COMPARISON: ABDOMEN KUB ONLY, January 30, 2018, 9:12. INDICATIONS : Constipation. MEDICAL HISTORY : None. SURGICAL HISTORY : Appendectomy. ENCOUNTER: Subsequent ACUITY: 1 week PAIN SCORE: 10 LOCATION: Abdomen. FINDINGS: Supine view of the abdomen was performed. The abdominal bowel gas pattern is normal. The there is m inimal stool burden as compared to the prior exam. There is elevation of the right hemidiaphragm whic h is a new finding. No abnormal masses, calcifications, or organomegaly is seen. The osseous structu res are unremarkable. CONCLUSION: Decreased stool burden as compared to the prior exam. No evidence of bowel obstruction. Elevation of the right hemidiaphragm which is new from prior exam. Recommend CT for further evaluation of the righ t hemidiaphragm elevation.. Rachael Browning MD on January 31, 2018 at 8:21 Board Certified Radiologist. This report was verified electronically.
[2018-01-31] MEDS ORDERED: RESP: ALBUTEROL 2.5 MG/IPRATROPIUM 0.5 MG NEB (SCH) NEB ONE (08:30)
[2018-01-31] MEDS ORDERED: FUROSEMIDE 40 MG/4 ML VIAL IV PUSH ONE (08:30)
[2018-01-31] MEDS ORDERED: POTASSIUM CHLORIDE 20 MEQ CONTROLLED RELEASE TAB PO ONE (08:30)
[2018-01-31] MEDS ORDERED: RESP: ALBUTEROL 2.5 MG/IPRATROPIUM 0.5 MG NEB (PRN) NEB (08:30)
[2018-01-31] MEDS: INSULIN ASPART SUPPLEMENTAL SCALE SQ SCH ×4 (08:47→21:09)
[2018-01-31] MEDS: PIPERACIL-TAZO 3.375 GM PREMIX 50 ML IV SCH ×3 (08:48→23:43)
[2018-01-31] MEDS: TAMSULOSIN HCL 0.4 MG CAP PO SCH (08:49)
[2018-01-31] MEDS: PRAVASTATIN SOD 40 MG TAB PO SCH (08:49)
[2018-01-31] MEDS: FLUCONAZOLE 100 MG TAB PO SCH (08:49)
[2018-01-31] MEDS: PANTOPRAZOLE SODIUM 40 MG VIAL IV PUSH SCH ×2 (08:49→21:03)
[2018-01-31] MEDS: INSULIN DETEMIR 100 UNITS/ML VIAL SQ SCH ×2 (08:50→21:08)
[2018-01-31] MEDS: DOCUSATE SODIUM 50 MG/SENNA 8.6 MG TAB PO SCH ×2 (08:50→21:04)
--- NOTE | 2018-01-31 12:17 | RADRPT ---
EXAM DATE/TIME: 01/31/2018 11:41 [facility] COMPARISON: CT ABDOMEN & PELVIS W/O CONTRAST, January 19, 2018, 19:55. INDICATIONS : Abnormal chest x-ray. ORAL CONTRAST: No oral contrast ingested. RADIATION DOSE: 14.63 CTDIvol (mGy) MEDICAL HISTORY : Hypertension. diabetes SURGICAL HISTORY : Appendectomy. ENCOUNTER: Initial ACUITY: 1 day PAIN SCALE: 0/10 LOCATION: Bilateral abdomen TECHNIQUE: Volumetric scanning of the abdomen and pelvis was performed. Using automated exposure control and ad justment of the mA and/or kV according to patient size, radiation dose was kept as low as reasonably achievable to obtain optimal diagnostic quality images. DICOM format image data is available electro nically for review and comparison. FINDINGS: LOWER LUNGS: There are bilateral small pleural effusions present, left greater than right. The lung bases are othe rwise clear. LIVER: There is new eventration of the right hemidiaphragm with adjacent compressive atelectasis of portions of the right lower lobe. No evidence of mass on this noncontrast exam. No evidence of biliary obstru ction. The gallbladder is unremarkable. SPLEEN: Normal size without lesion. PANCREAS: Within normal limits. KIDNEYS: Normal in size and shape. There is no mass, stone, or hydronephrosis. ADRENAL GLANDS: Within normal limits. VASCULAR: There is no aortic aneurysm. BOWEL/MESENTERY: The stomach, small bowel, and colon demonstrate no acute abnormality. There is no free intraperitone al air or fluid. ABDOMINAL WALL: Within normal limits. RETROPERITONEUM: There is no lymphadenopathy. BLADDER: No wall thickening or mass. REPRODUCTIVE: Within normal limits. INGUINAL: There is no lymphadenopathy or hernia. MUSCULOSKELETAL: Within normal limits for patient age. CONCLUSION: New bilateral small pleural effusions. New eventration of the right hemidiaphragm wit h adjacent compressive atelectasis. No visible mass on this noncontrast exam. Rachael Browning MD on January 31, 2018 at 12:10 Board Certified Radiologist. This report was verified electronically.
[2018-01-31] MEDS ORDERED: DIFL100T PO (13:42)
[2018-01-31] MEDS ORDERED: TAMS5CAP PO (13:42)
[2018-01-31] MEDS ORDERED: AUGM500T7 PO (13:43)
--- NOTE | 2018-01-31 13:49 | HHI.PR ---
Subjective Remarks Patient has had good diuresis with lasix, no longer SOB patient also moving bowels well offers no complaints at this time Objective Vitals Vital Signs Date Time Temp Pulse Resp B/P (MAP) Pulse Ox O2 Delivery O2 Flow Rate FiO2 01/31/18 12:00 98.1 78 20 175/79 (111) 95 01/31/18 08:00 82 01/31/18 08:00 98.0 71 20 146/77 (100) 98 01/31/18 08:00 Nasal Cannula 4.00 01/31/18 04:59 57 01/31/18 04:00 Nasal Cannula 4.00 01/31/18 04:00 98.4 64 20 98/60 (73) 95 01/31/18 00:00 60 01/31/18 00:00 97.9 63 20 116/66 (83) 96 01/31/18 00:00 Nasal Cannula 4.00 01/30/18 20:00 98.1 80 20 128/75 (92) 98 01/30/18 20:00 88 01/30/18 20:00 81 01/30/18 20:00 Nasal Cannula 4.00 01/30/18 16:00 97.7 77 20 122/78 (93) 98 01/30/18 14:04 88 01/31/18 01/31/18 02/01/18 15:00 23:00 07:00 Output Total 1150 ml Balance -1150 ml Output Urine Total 1150 ml # Bowel Movements 2 Result Diagram: 01/30/18 0725 01/30/18 0725 Other Results Laboratory Tests Test 01/28/18 15:57 01/28/18 17:43 01/28/18 18:00 01/29/18 01:21 Lactic Acid Level 2.2 mmol/L White Blood Count 15.1 TH/MM3 Red Blood Count 4.22 MIL/MM3 Hemoglobin 12.0 GM/DL Hematocrit 36.0 % Mean Corpuscular Volume 85.3 FL Mean Corpuscular Hemoglobin 28.3 PG Mean Corpuscular Hemoglobin Concent 33.2 % Red Cell Distribution Width 14.4 % Platelet Count 361 TH/MM3 Mean Platelet Volume 8.3 FL Neutrophils (%) (Auto) 82.2 % Lymphocytes (%) (Auto) 7.8 % Monocytes (%) (Auto) 7.8 % Eosinophils (%) (Auto) 1.5 % Basophils (%) (Auto) 0.7 % Neutrophils # (Auto) 12.4 TH/MM3 Lymphocytes # (Auto) 1.2 TH/MM3 Monocytes # (Auto) 1.2 TH/MM3 Eosinophils # (Auto) 0.2 TH/MM3 Basophils # (Auto) 0.1 TH/MM3 CBC Comment DIFF FINAL Differential Comment Blood Urea Nitrogen 14 MG/DL Creatinine 1.23 MG/DL Random Glucose 161 MG/DL Calcium Level 8.1 MG/DL Magnesium Level 1.8 MG/DL Sodium Level 136 MEQ/L Potassium Level 4.1 MEQ/L Chloride Level 103 MEQ/L Carbon Dioxide Level 22.5 MEQ/L Anion Gap 11 MEQ/L Estimat Glomerular Filtration Rate 59 ML/MIN Nasal Screen MRSA (PCR) MRSA NOT DETECTED Urine Color YELLOW Urine Turbidity CLEAR Urine pH 6.0 Urine Specific [place] 1.017 Urine Protein 30 mg/dL Urine Glucose (UA) 300 mg/dL Urine Ketones NEG mg/dL Urine Occult Blood NEG Urine Nitrite NEG Urine Bilirubin NEG Urine Urobilinogen LESS THAN 2.0 MG/DL Urine Leukocyte Esterase NEG Urine RBC 1 /hpf Urine WBC 8 /hpf Urine Squamous Epithelial Cells <1 /hpf Urine Mucus FEW /lpf Microscopic Urinalysis Comment CULT NOT INDICATED Test 01/29/18 05:12 01/30/18 05:00 01/30/18 07:25 01/31/18 13:02 White Blood Count 14.2 TH/MM3 8.8 TH/MM3 Red Blood Count 3.85 MIL/MM3 4.14 MIL/MM3 Hemoglobin 11.4 GM/DL 11.5 GM/DL Hematocrit 32.6 % 35.4 % Mean Corpuscular Volume 84.7 FL 85.4 FL Mean Corpuscular Hemoglobin 29.6 PG 27.6 PG Mean Corpuscular Hemoglobin Concent 34.9 % 32.4 % Red Cell Distribution Width 14.2 % 14.4 % Platelet Count 347 TH/MM3 360 TH/MM3 Mean Platelet Volume 8.5 FL 9.0 FL CBC Comment AUTO DIFF AUTO DIFF Differential Total Cells Counted 100 100 Neutrophils % (Manual) 80 % 61 % Band Neutrophils % 5 % 2 % Lymphocytes % 7 % 20 % Monocytes % 7 % 6 % Eosinophils % 1 % 10 % Neutrophils # (Manual) 12.1 TH/MM3 5.5 TH/MM3 Differential Comment FINAL DIFF MANUAL FINAL DIFF MANUAL Toxic Granulation 1+ Toxic Vacuolation PRESENT PRESENT Platelet Estimate NORMAL NORMAL Platelet Morphology Comment NORMAL NORMAL Blood Urea Nitrogen 13 MG/DL 12 MG/DL Creatinine 1.08 MG/DL 1.13 MG/DL Random Glucose 185 MG/DL 130 MG/DL Calcium Level 8.2 MG/DL 8.3 MG/DL Sodium Level 134 MEQ/L 137 MEQ/L Potassium Level 4.4 MEQ/L 4.0 MEQ/L Chloride Level 103 MEQ/L 107 MEQ/L Carbon Dioxide Level 22.3 MEQ/L 21.8 MEQ/L Anion Gap 9 MEQ/L 8 MEQ/L Estimat Glomerular Filtration Rate 69 ML/MIN 66 ML/MIN Lactic Acid Level 1.2 mmol/L Vancomycin Level Trough 11.7 MCG/ML Basophils % 1 % Magnesium Level 1.8 MG/DL Imaging Last 72 hours Impressions Scrotum Ultrasound 01/19/18 0000 Signed Impressions: Service Date/Time: Friday, January 19, 2018 20:47 - CONCLUSION: 1. Bilateral testicles have a normal appearance with intact flow by color Doppler. 2. Irregular shaped heterogeneous echotexture abnormality in the posterior scrotum measuring excess of 5 cm. Inder Campuzano MD Abdomen/Pelvis CT 01/19/18 0000 Signed Impressions: Service Date/Time: Friday, January 19, 2018 19:55 - CONCLUSION: 1. Induration of the subcutaneous soft tissues in the right perianal region without focal fluid collection. 2. Both collecting system and ureters are mildly dilated, but no calcified stones seen on either side. 3. Distended urinary bladder, similar to prior CT in 2000. Inder Campuzano MD Objective Remarks GENERAL: This is a well-nourished, well-developed patient, in no apparent distress. CARDIO: Regular RESP: faint crackles bilateral bases ABD: +BS, soft, non-tender, nondistended. EXT: BLE 1+ edema Procedures pt underwent Incision and drainage perineal abscess and perirectal abscess on 01/22/[address] Guevara drainage and debridement of soft tissue of perineal and perirectal abscesses by Dr. Guevara and Exploration of scrotal wound with debridement by Yajaira 01/28/18 A/P Problem List: (1) Perirectal abscess ICD Codes: K61.1 - Rectal abscess Status: Acute Plan: - 62 y/o WM with DM who presented to the ED for perirectal abscess and pain/ swelling in scrotum. - Pt was first treated with Keflex on 01/13/18 for david-rectal abscess, then had I&D performed by Dr Grubbs on 01/15/18 and was reportedly placed on Bactrim for last few days. Cultures of abscess revealed group B Strep. He developed low grade fevers on 01/19 and complained of more swelling in scrotum with difficulty having BMs over the previous 2 days. - Was seen in gen surgery office on 01/19 and directed to ER for possible progression of abscess with possible scrotal abscess as well. - CT abd/pelvis (01/19/18) --> Induration of the subcutaneous soft tissues in the right perianal region without focal fluid collection. Both collecting system and ureters are mildly dilated, but no calcified stones seen on either side. Distended urinary bladder, similar to prior CT in 2000. - U/S scrotum (01/19/18) --> Bilateral testicles have a normal appearance with intact flow by color Doppler. Irregular shaped heterogeneous echotexture abnormality in the posterior scrotum measuring excess of 5 cm. - Urology consulted - General surgery following and pt underwent Incision and drainage perineal abscess and perirectal abscess on 01/22/[address] Guevara the procedure revealed large perineal abscess with large amt of pus drained which was communicating with perirectal abscess. - GS recommending leaving packing out and sitz baths - Check KUB today - Cont. Pericolace BID, MOM PRN, add Lactulose daily PRN - patient with hypotension and increasing WBC concerns for worsening infection. (01/30/18) ID consulted recommending: Continue Zosyn IV Stop vanco Diflucan If no fever overnight, ok to D/C tomorrow: Augmentin 500 TIDF x 14 days Diflucan 100 po daily x 7 days - wound culture obtained 01/22 Heavy Normal skin sree consisting of Lactobacillus species, moderate growth Viridan streptococcus - Lactic acid (01/28) 2.2 -> (01/29) 1.5 - 01/28/18 patient underwent drainage and debridement of soft tissue of perineal and perirectal abscesses by Dr. Guevara and Exploration of scrotal wound with debridement by Yajaira - cleared for DC per general surgery. dressing recommendations change gluteal wound pack with 1/4in packing covered with 4x4 QD - Plan to DC patient tomorrow with [facility] (2) DM2 (diabetes mellitus, type 2) ICD Codes: E11.9 - Type 2 diabetes mellitus without complications Status: Chronic Plan: - BS are somewhat better controlled on higher Levemir dose - SSI increased to high dose on 01/21 - Levemir 15 units BID - Hold outpt meds (3) Urinary retention ICD Codes: R33.9 - Retention of urine, unspecified Plan: - Johnson catheter removed - Pt started on Flomax - patient now voiding continue Flomax (4) Constipation ICD Codes: K59.00 - Constipation, unspecified Status: Resolved Plan: Patient reports constipation - resolved + flatus, + bowel sounds KUB (01/30) Moderate amount of stool within the colon, otherwise within normal limits continue david-Colace 2 tablets BID fleets enema today (5) SOB (shortness of breath) ICD Codes: R06.02 - Shortness of breath Plan: Patient had hypotension 01/28- received aggressive fluids Now patient with SOB and BLE edema Patient also on 2L oxygen via NC - wean as tolerated CXR requested Lasix 40 mg IV x2 Patient with good diuresis after lasix no longer SOB, on RA CXR (01/31/18) reviewed and reveals: elevation of the right hemidiaphragm with adjacent compressive atelectasis. Consider further evaluation with CT to evaluate for etiology of diaphragmatic elevation CT chest (01/31/18) reviewed and reveals: New bilateral small pleural effusions. New eventration of the right hemidiaphragm with adjacent compressive atelectasis. No visible mass on this noncontrast exam. Assessment and Plan Patient examined. Assessment and plan formulated with Roro Ball PA-C. I agree with the above. Case reviewed with General Surgery, Dr. Hobson. Appreciate input from ID. Pt will discharge to home in AM 02/01 with [facility] and home physical therapy. Pt is tolerating PO intake. No n/v/d. Problem Qualifiers (1) DM2 (diabetes mellitus, type 2): Roro Ball Jan 31, 2018 13:48 Maxx Woo DO Jan 31, 2018 23:08
[2018-01-31 14:28] LABS: BICARBONATE 25.1 MEQ/L (21.0-32.0); CALCIUM 9.1 MG/DL (8.5-10.1); CREATININE 1.04 MG/DL (0.60-1.30)
--- NOTE | 2018-01-31 14:28 | HHI.DCPOC ---
Discharge Care Plan Diagnosis: (1) Perirectal abscess (2) Scrotal abscess (3) Perineal abscess (4) SOB (shortness of breath) (5) Constipation Goals to Promote Your Health * To prevent worsening of your condition and complications * To maintain your health at the optimal level Directions to Meet Your Goals Take your medications as prescribed Follow your dietary instruction Follow activity as directed Keep your appointments as scheduled Take your immunizations and boosters as scheduled If your symptoms worsen call your PCP, if no PCP go to Urgent Care Center or Emergency Room Smoking is Dangerous to Your Health. Avoid second hand smoke Call the 24-hour hour crisis hotline for domestic abuse at Roro Ball Jan 31, 2018 14:28 Maxx Woo DO Jan 31, 2018 23:09
--- NOTE | 2018-01-31 14:29 | HHI.FF ---
Face to Face Verification Diagnosis: (1) Perirectal abscess (2) Scrotal abscess (3) Perineal abscess (4) SOB (shortness of breath) (5) Constipation Physical Therapy Order: Evaluate and Treat Home Health Nursing Order: Medical education Signs/symptoms of disease process Wound care and dressing changes Instructions: Wound care per general surgery: change gluteal wound pack with 1/4in packing covered with 4x4 QD I have seen patient Jose Flores on 01/31/18. My clinical findings support the need for the requested home health care services because: Ltd mobility - disease progression Deconditioned w/ increased weakness Limited ability to care for self I certify that my clinical findings support that this patient is homebound because: Post-op weakness Unsteady gait/balance Roro Ball Jan 31, 2018 14:29 Maxx Woo DO Jan 31, 2018 14:30
[2018-01-31] MEDS ORDERED: WALKER WHEELS/F1 MIS (14:31)
--- NOTE | 2018-01-31 14:35 | HHI.DS ---
Discharge Summary Admission Date Jan 19, 2018 at 22:46 Discharge Date: Feb 01, 2018 Admitting Diagnosis Scrotal Abscess; Perirectal Cellulitis; Sepsis (1) Perirectal abscess Diagnosis: Principal ICD Codes: K61.1 - Rectal abscess Status: Acute (2) DM2 (diabetes mellitus, type 2) Diagnosis: Secondary ICD Codes: E11.9 - Type 2 diabetes mellitus without complications Status: Chronic (3) Urinary retention Diagnosis: Principal ICD Codes: R33.9 - Retention of urine, unspecified (4) Constipation Diagnosis: Principal ICD Codes: K59.00 - Constipation, unspecified Status: Resolved (5) SOB (shortness of breath) ICD Codes: R06.02 - Shortness of breath Consultants Dr. Rowe, Urology Dr. Youssef and Dr. Guevara, general surgery Dr. Haile, ID Procedures pt underwent Incision and drainage perineal abscess and perirectal abscess on 01/22/[address] Guevara drainage and debridement of soft tissue of perineal and perirectal abscesses by Dr. Guevara and Exploration of scrotal wound with debridement by Yajaira 01/28/18 Brief History 62 y.o. WM with DM presents to ER under direction of Dr Grubbs re: perirectal abscess and pain/swelling in scrotum. First treated with Keflex abx 01/13/18 re: abscess, then had I&D performed by Dr Grubbs on 01/15/18 and was reportedly placed on Bactrim for last few days. Cltx of abscess revealed group B Strep. He had low grade fevers today and has noted more swelling in scrotum with difficulty having BMs over last 2 days. No vomiting, but +nausea. Was seen in gen surgery office today and directed to ER re: possible progression of abscess with possible scrotal abscess as well. CT abd/pelvis noted for induration in perineal area, but not obvious abscess. U/S scrotum reveal irreg structure appx 5 cm most c/w abscess per ER provider. Testicles appear wnl bilat. Pt placed on IV abx and pain med. CBC/BMP: 01/30/18 0725 01/30/18 0725 Significant Findings Laboratory Tests Test 01/28/18 15:57 01/28/18 17:43 01/28/18 18:00 01/29/18 01:21 Lactic Acid Level 2.2 mmol/L (0.4-2.0) White Blood Count 15.1 TH/MM3 (4.0-11.0) Red Blood Count 4.22 MIL/MM3 (4.50-5.90) Hemoglobin 12.0 GM/DL (13.0-17.0) Hematocrit 36.0 % (39.0-51.0) Neutrophils (%) (Auto) 82.2 % (16.0-70.0) Lymphocytes (%) (Auto) 7.8 % (9.0-44.0) Neutrophils # (Auto) 12.4 TH/MM3 (1.8-7.7) Monocytes # (Auto) 1.2 TH/MM3 (0-0.9) Random Glucose 161 MG/DL (74-106) Calcium Level 8.1 MG/DL (8.5-10.1) Estimat Glomerular Filtration Rate 59 ML/MIN (>89) Urine Protein 30 mg/dL (NEG-TRACE) Urine Glucose (UA) 300 mg/dL (NEG) Urine WBC 8 /hpf (0-5) Urine Mucus FEW /lpf (OCC) Test 01/29/18 05:12 01/30/18 05:00 01/30/18 07:25 01/31/18 13:02 White Blood Count 14.2 TH/MM3 (4.0-11.0) Red Blood Count 3.85 MIL/MM3 (4.50-5.90) 4.14 MIL/MM3 (4.50-5.90) Hemoglobin 11.4 GM/DL (13.0-17.0) 11.5 GM/DL (13.0-17.0) Hematocrit 32.6 % (39.0-51.0) 35.4 % (39.0-51.0) Neutrophils % (Manual) 80 % (16-70) Lymphocytes % 7 % (9-44) Neutrophils # (Manual) 12.1 TH/MM3 (1.8-7.7) Toxic Granulation 1+ (NORMAL) Toxic Vacuolation PRESENT (NONE SEEN) PRESENT (NONE SEEN) Random Glucose 185 MG/DL (74-106) 130 MG/DL (74-106) 233 MG/DL (74-106) Calcium Level 8.2 MG/DL (8.5-10.1) 8.3 MG/DL (8.5-10.1) Sodium Level 134 MEQ/L (136-145) 135 MEQ/L (136-145) Estimat Glomerular Filtration Rate 69 ML/MIN (>89) 66 ML/MIN (>89) 72 ML/MIN (>89) Vancomycin Level Trough 11.7 MCG/ML (5.0-10.0) Eosinophils % 10 % (0-4) Imaging Last Impressions Chest X-Ray 01/31/18 0600 Signed Impressions: Service Date/Time: Wednesday, January 31, 2018 08:06 - CONCLUSION: The patient of the right hemidiaphragm with adjacent compressive atelectasis. Consider further evaluation with CT to evaluate for etiology of diaphragmatic elevation Rachael Browning MD Abdomen X-Ray 01/31/18 0600 Signed Impressions: Service Date/Time: Wednesday, January 31, 2018 08:10 - CONCLUSION: Decreased stool burden as compared to the prior exam. No evidence of bowel obstruction. Elevation of the right hemidiaphragm which is new from prior exam. Recommend CT for further evaluation of the right hemidiaphragm elevation.. Rachael Browning MD Abdomen/Pelvis CT 01/31/18 0000 Signed Impressions: Service Date/Time: Wednesday, January 31, 2018 11:41 - CONCLUSION: New bilateral small pleural effusions. New eventration of the right hemidiaphragm with adjacent compressive atelectasis. No visible mass on this noncontrast exam. Rachael Browning MD Scrotum Ultrasound 01/19/18 0000 Signed Impressions: Service Date/Time: Friday, January 19, 2018 20:47 - CONCLUSION: 1. Bilateral testicles have a normal appearance with intact flow by color Doppler. 2. Irregular shaped heterogeneous echotexture abnormality in the posterior scrotum measuring excess of 5 cm. Inder Campuzano MD PE at Discharge GENERAL: This is a well-nourished, well-developed patient, in no apparent distress. CARDIO: Regular RESP: faint crackles bilateral bases ABD: +BS, soft, non-tender, nondistended. EXT: BLE 1+ edema Hospital Course Perirectal abscess - 62 y/o WM with DM who presented to the ED for perirectal abscess and pain/ swelling in scrotum. - Pt was first treated with Keflex on 01/13/18 for david-rectal abscess, then had I&D performed by Dr Grubbs on 01/15/18 and was reportedly placed on Bactrim for last few days. Cultures of abscess revealed group B Strep. He developed low grade fevers on 01/19 and complained of more swelling in scrotum with difficulty having BMs over the previous 2 days. - Was seen in gen surgery office on 01/19 and directed to ER for possible progression of abscess with possible scrotal abscess as well. - CT abd/pelvis (01/19/18) --> Induration of the subcutaneous soft tissues in the right perianal region without focal fluid collection. Both collecting system and ureters are mildly dilated, but no calcified stones seen on either side. Distended urinary bladder, similar to prior CT in 2000. - U/S scrotum (01/19/18) --> Bilateral testicles have a normal appearance with intact flow by color Doppler. Irregular shaped heterogeneous echotexture abnormality in the posterior scrotum measuring excess of 5 cm. - Urology consulted - General surgery following and pt underwent Incision and drainage perineal abscess and perirectal abscess on 01/22/[address] Guevara the procedure revealed large perineal abscess with large amt of pus drained which was communicating with perirectal abscess. - GS recommending leaving packing out and sitz baths - Check KUB today - Cont. Pericolace BID, MOM PRN, add Lactulose daily PRN - patient with hypotension and increasing WBC concerns for worsening infection. (01/30/18) ID consulted recommending: Continue Zosyn IV Stop vanco Diflucan If no fever overnight, ok to D/C tomorrow: Augmentin 500 TIDF x 14 days Diflucan 100 po daily x 7 days - wound culture obtained 01/22 Heavy Normal skin sree consisting of Lactobacillus species, moderate growth Viridan streptococcus - Lactic acid (01/28) 2.2 -> (01/29) 1.5 - 01/28/18 patient underwent drainage and debridement of soft tissue of perineal and perirectal abscesses by Dr. Guevara and Exploration of scrotal wound with debridement by Yajaira - cleared for DC per general surgery. dressing recommendations change gluteal wound pack with 1/4in packing covered with 4x4 QD. Case discussed with general surgery 01/31 ok to DC with carter drain in place DM2 (diabetes mellitus, type 2) - BS are somewhat better controlled on higher Levemir dose - SSI increased to high dose on 01/21 - Levemir 15 units BID - Hold outpt meds Urinary retention - Johnson catheter removed - Pt started on Flomax - patient now voiding continue Flomax Constipation Patient reports constipation - resolved + flatus, + bowel sounds KUB (01/30) Moderate amount of stool within the colon, otherwise within normal limits continue david-Colace 2 tablets BID fleets enema today SOB (shortness of breath) Patient had hypotension 01/28- received aggressive fluids Now patient with SOB and BLE edema Patient also on 2L oxygen via [place] - wean as tolerated CXR requested Lasix 40 mg IV x2 Patient with good diuresis after lasix no longer SOB, on RA CXR (01/31/18) reviewed and reveals: elevation of the right hemidiaphragm with adjacent compressive atelectasis. Consider further evaluation with CT to evaluate for etiology of diaphragmatic elevation CT chest (01/31/18) reviewed and reveals: New bilateral small pleural effusions. New eventration of the right hemidiaphragm with adjacent compressive atelectasis. No visible mass on this noncontrast exam. Pt Condition on Discharge: Stable Discharge Disposition: Disch w/ Home Health Serv Discharge Instructions DIET: Follow Instructions for: Diabetic Diet Activities you can perform: Regular-No Restrictions Follow up Referrals: PCP Follow-up - [address] Funk Surgical - 3-5 Days with Robby Guevara MD Urology - 2 Weeks with Seng Gates MD New Medications: Amoxicillin-Clavulanate (Augmentin) 500-125 mg Tab 500 MG PO Q8H for Infection for 14 Days, TAB 0 Refills Furosemide (Lasix) 20 Mg Tab 20 MG PO DAILY for fluid, #3 TAB 0 Refills Potassium Chloride ER (Potassium Chloride ER) 10 Meq Cap 10 MEQ PO DAILY for Electrolyte Replacement, #3 CAP 0 Refills Walker with Front Wheels (Walker with Front Wheels) 1 Mis Mis EA .XX DIRECTED, #1 0 Refills Fluconazole (Diflucan) 100 Mg Tab 100 MG PO DAILY for antifungal for 7 Days, #7 TAB 0 Refills Oxycodone HCl/Acetaminophen (Oxycodone-Acetaminophen 10-325) 10 Mg-325 Mg Tablet 1 TAB PO Q4H PRN for pain, #20 TAB 0 Refills Tamsulosin (Flomax) 0.4 Mg Cap 0.4 MG PO DAILY for urinary retention, #30 CAP 0 Refills Continued Medications: Albiglutide 4-Pack Inj (Tanzeum 4-Pack Inj) 50 Mg Pfpen 50 MG SQ Q7D, #4 PEN Fenofibrate (Tricor) 145 Mg Tab 145 MG PO DAILY, #30 TAB 0 Refills Takw with food. Lisinopril (Lisinopril) 5 Mg Tab 5 MG PO DAILY for Blood Pressure Management, #30 TAB 0 Refills Pravastatin (Pravachol) 40 Mg Tab 40 MG PO DAILY for Cholesterol Management, #30 TAB 0 Refills Discontinued Medications: Oxycodone (Oxycodone) 5 Mg Cap 5 MG PO Q6H PRN for PAIN, CAP 0 Refills Additional Information dressing changes per general surgery: change gluteal wound pack with 1/4in packing covered with 4x4 QD Patient examined. Assessment and plan formulated with Roro Ball PA-C. I agree with the above. Roro Ball Jan 31, 2018 14:34 Maxx Woo DO Feb 03, 2018 21:14
[2018-01-31] MEDS ORDERED: FURO1TAB62 PO (16:01)
[2018-01-31] MEDS ORDERED: POTA10CA PO (16:01)
[2018-01-31] MEDS ORDERED: OXYC1TAB36 PO (16:04)
[2018-02-01 00:11] VITALS: BP 138/84; PULSE 70; RESP 21; TEMP 98.6; O2SAT 95
[2018-02-01 04:00] VITALS: BP 148/82; PULSE 64; RESP 21; TEMP 98; O2SAT 95
[2018-02-01] MEDS: SIMETHICONE 125 MG CHEWABLE TAB PO SCH (06:43)
[2018-02-01] MEDS: NS + KCL 20 MEQ INJ 1,000 ML IV SCH (06:43)
[2018-02-01 08:00] VITALS: BP 142/66; PULSE 63; RESP 20; TEMP 98.1; O2SAT 92
[2018-02-01] MEDS: PIPERACIL-TAZO 3.375 GM PREMIX 50 ML IV SCH (08:13)
[2018-02-01] MEDS: PANTOPRAZOLE SODIUM 40 MG VIAL IV PUSH SCH (08:15)
[2018-02-01] MEDS: INSULIN ASPART SUPPLEMENTAL SCALE SQ SCH (08:15)
[2018-02-01] MEDS: TAMSULOSIN HCL 0.4 MG CAP PO SCH (08:15)
[2018-02-01] MEDS: DOCUSATE SODIUM 50 MG/SENNA 8.6 MG TAB PO SCH (08:15)
[2018-02-01] MEDS: FLUCONAZOLE 100 MG TAB PO SCH (08:15)
[2018-02-01] MEDS: PRAVASTATIN SOD 40 MG TAB PO SCH (08:15)
[2018-02-01] MEDS: INSULIN DETEMIR 100 UNITS/ML VIAL SQ SCH (08:16)
[2018-02-01] MEDS ORDERED: POTASSIUM CHLORIDE 20 MEQ CONTROLLED RELEASE TAB PO SCH (09:00)
[2018-02-01] MEDS ORDERED: FUROSEMIDE 20 MG TAB PO SCH (09:00)
== END 2018-02-01 09:12 | disposition home health service (06) | DRG 394 ==
LOC: NEPD 15:26 → NEDA 22:46 → NEPHCDU 23:38 → N07B 01-23 13:37 → N03B 01-28 15:50 → N04A 01-29 19:48
PROVIDERS: ADMIT Hospitalist; ATTEND Hospitalist
PROC: 0HD9XZZ Extraction of Perineum Skin, External Approach (ICD-10-PCS; 2018-01-22)
PROC: 0H99XZX Drainage of Perineum Skin, External Approach, Diagnostic (ICD-10-PCS; principal; 2018-01-22 13:00)
PROC: 0HD9XZZ Extraction of Perineum Skin, External Approach (ICD-10-PCS; 2018-01-28)
PROC: 0JD93ZZ Extraction of Buttock Subcutaneous Tissue and Fascia, Percutaneous Approach (ICD-10-PCS; 2018-01-28)
DX: K61.1 Rectal abscess (principal); L03.315 Cellulitis of perineum; E11.21 Type 2 diabetes mellitus with diabetic nephropathy; L02.215 Cutaneous abscess of perineum; J98.11 Atelectasis; N49.2 Inflammatory disorders of scrotum; E11.65 Type 2 diabetes mellitus with hyperglycemia; I10 Essential (primary) hypertension; G47.30 Sleep apnea, unspecified; E78.00 Pure hypercholesterolemia, unspecified; K21.9 Gastro-esophageal reflux disease without esophagitis; E66.9 Obesity, unspecified; Z83.3 Family history of diabetes mellitus; Z82.49 Family history of ischemic heart disease and other diseases of the circulatory system; Z82.3 Family history of stroke; K59.00 Constipation, unspecified; R33.9 Retention of urine, unspecified; L73.9 Follicular disorder, unspecified; R06.6 Hiccough
CPT/HCPCS: 71045; 71046; 74018; 74176; 76870; 80048; 80053; 80202; 81001; 82565; 82948; 83605; 83735; 85007; 85025; 85027; 85610; 85730; 87040; 87070; 87205; 87641; 93005; 93975; 94150; 94664; 96365; 96366; 96368; 96375; C9113; J0131; J1100; J1170; J1815; J1940; J2248; J2370; J2405; J2543; J3010; J3370; J3480; J7030; J7040; J7050; J7120